=== PATIENT | female | born 1960 | race Caucasian/White ===

== ENCOUNTER 2023-12-24 12:08 | Inpatient (IN) | payer OTHER, SELFPAY ==
[2023-12-24] VITALS (29 sets, daily range): BP systolic 143–189; BP diastolic 89–96; PULSE 91–126; TEMP 37.4–37.9; O2SAT 97–98; BMI 41.4
--- NOTE | 2023-12-24 12:35 | ECG_ITS ---
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
--- NOTE | 2023-12-24 12:45 | XR_ITS ---
The [address] [address] Patient Name: ACACIA TIRADO MRN: [id number] date: 1960 Sex: F Assigned Patient Location: ER Current Patient Location: ER Accession/Order Number: [id number] Exam Date: 12/24/2023 14:00 Report Date: 12/24/2023 14:55 At the request of: BEN KEMP Procedure: XR chest 2V EXAM: XR chest 2V HISTORY: cough COMPARISON: None. TECHNIQUE: Chest X-ray, 2 views FINDINGS: Support devices: None. Lungs/pleura: No consolidation, effusion, or pneumothorax. Heart and mediastinum: Normal contours. Bones: No acute abnormality identified. XR/XR chest 2V Impression: No radiographic evidence of acute cardiopulmonary process. Electronically authenticated by: TAMY DOS SANTOS Date: 12/24/2023 14:55
[2023-12-24 13:15] LABS: Basophils Percent Auto 0.2 % (0.2-2.0); Eosinophils Absolute Auto 0.1 10^3/uL (0.0-0.7); Eosinophils Percent Auto 0.5 % (0.9-7.0); Hematocrit 39.3 % (36.0-48.0); Hemoglobin 13.9 g/dL (12.0-16.0); Immature Granulocytes Abs Auto 0.06 10^3/uL (0.00-0.03); Immature Granulocytes Pct Auto 0.5 % (0.0-0.5); Lymphocytes Absolute Auto 1.6 10^3/uL (1.2-3.8); Lymphocytes Percent Auto 13.3 % (20.5-60.0); Mean Corpuscular HGB Conc 35.4 g/dL (29.9-35.2); Mean Corpuscular Hemoglobin 29.3 pg (26.7-34.0); Mean Corpuscular Volume 82.9 fL (81.0-99.0); Mean Platelet Volume 8.6 fL (9.5-13.5); Monocytes Absolute Auto 1.2 10^3/uL (0.3-0.8); Monocytes Percent Auto 9.7 % (1.7-12.0); Neutrophils Absolute Auto 9.1 10^3/uL (1.4-6.5); Neutrophils Percent Auto 75.8 % (43.0-75.0); Platelet Count 302 10^3/uL (150-450); Red Blood Count 4.74 10^6/uL (4.20-5.40); Red Cell Distribution Width 12.6 % (11.0-15.0)
[2023-12-24 13:29] LABS: Internal Control Within Normal Limits; Strep A Antigen Screen Negative
[2023-12-24 13:29] LABS: Influenza Virus A Antigen Negative; Influenza Virus B Antigen Negative; Internal Control Within Normal Limits
[2023-12-24 13:30] LABS: Internal Control Within Normal Limits; SARS-CoV-2 Ag NEGATIVE (NEGATIVE)
[2023-12-24 15:02] LABS: Alanine Aminotransferase 24 U/L (14-59); Albumin Globulin Ratio 0.6; Albumin Level 2.9 g/dL (3.4-5.0); Alkaline Phosphatase 102 U/L (46-116); Anion Gap 18.5; Aspartate Amino Transferase 8 U/L (15-37); BUN Creatinine Ratio 14.1; Bilirubin Total 0.9 mg/dL (0.2-1.0); Calcium 8.9 mg/dL (8.5-10.1); Carbon Dioxide 24.5 mmol/L (21.0-32.0); Estimated GFR (African America >60 (>=60); Estimated GFR (Non-African Ame >60 (>=60); Globulin 4.9 g/dL; Glucose 113 mg/dL (74-106); Total Protein 7.8 g/dL (6.4-8.2)
[2023-12-24 15:05] LABS: Chloride 81 mmol/L (98-107); Sodium 121 mmol/L (136-145)
[2023-12-24] MEDS: 0.9 % SODIUM CHLORIDE 1,000 ML 500 ML IV ×2 (16:09→19:14)
[2023-12-24 17:48] LABS: Anion Gap 12.4; BUN Creatinine Ratio 13.1; Calcium 8.7 mg/dL (8.5-10.1); Carbon Dioxide 27.4 mmol/L (21.0-32.0); Chloride 86 mmol/L (98-107); Estimated GFR (African America >60 (>=60); Estimated GFR (Non-African Ame >60 (>=60); Glucose 101 mg/dL (74-106)
[2023-12-24 17:58] LABS: Potassium 2.8 mmol/L (3.5-5.1); Sodium 123 mmol/L (136-145)
--- NOTE | 2023-12-24 18:12 | ED.GENADUL1 ---
HPI HPI - General Adult General Chief complaint: Upper Respiratory Infection Stated complaint: FLU LIKE SYMPTOMS Time Seen by Provider: 12/24/23 12:40 Source: patient Mode of arrival: Wheelchair Limitations: no limitations History of Present Illness HPI narrative: The patient is coming to the ER after she had started having sore throat almost 5 days ago, the patient endorsed dizziness decreased p.o. intake and sore throat for the last 5 days, associated with a cough no shortness of breath no chest pain, and decreased p.o. intake, patient also endorsed diarrhea no abdominal pain no chest pain Related Data Home Medications ?Medication ?Instructions ?Recorded ?Confirmed HCTZ See Rx Instructions .Route .COMPLEX 12/24/23 12/24/23 levothyroxine 112 mcg capsule 112 mcg PO DAILY 12/24/23 12/24/23 lisinopril 20 mg tablet 20 mg PO DAILY 12/24/23 12/24/23 potassium chloride 10 mEq meq 12/24/23 capsule,extended release Allergies Allergy/AdvReac Type Severity Reaction Status Date / Time acetaminophen [From Percocet] Allergy Mild Rash Verified 12/24/23 12:30 morphine Allergy Mild Rash Verified 12/24/23 12:30 oxycodone [From Percocet] Allergy Mild Rash Verified 12/24/23 12:30 Penicillins Allergy Mild Rash Verified 12/24/23 12:30 Opioid HPI Opioid Management Most Recent Opioid Data: No Data to Display Exam Narrative Exam Narrative: Nurses notes and vital signs reviewed and patient is not hypoxic. General: Well-appearing and in no apparent distress. Skin: Warm, dry, no pallor noted. No rash. Head: Normocephalic, atraumatic. Neck: Supple, non-tender. Eye: Pupils are equal, round and EOMI. No scleral icterus. Ears, Nose, Mouth, and Throat: TM are clear, no nasal mucosal hypertrophy. Oral mucosa is moist, very mild erythema and the patient have a patent airway .uvula is mid-line Cardiovascular: Regular Rate and Rhythm without murmur, gallop or rub. Respiratory: No accessory muscle use or respiratory distress. Lungs are clear to auscultation, no wheezing, rales or rhonchi Chest Wall: no tenderness Back: No midline thoracic or lumbar vertebral tenderness. No CVA tenderness Musculoskeletal: normal ROM, no calf or popliteal tenderness, no lower extremity edema/swelling GI: Abdomen is soft, non-distended. Normal bowel sounds. No masses appreciated. No tenderness to palpation. No rebound, guarding, or rigidity noted. Neurological: A&O x4. No cranial nerve dysfunction observed. No truncal ataxia. Moves all extremities. Sensation intact. Psychiatric: Cooperative and interactive. Normal mood and affect. Constitutional Vital Signs, click to edit/add: Last Vital Signs Temp 100.2 F 12/24/23 12:30 Pulse 96 H 12/24/23 17:00 Resp 18 12/24/23 17:00 BP 189/96 H 12/24/23 17:00 Pulse Ox 98 12/24/23 17:00 O2 Del Method Room Air 12/24/23 17:00 Course Vital Signs Vital signs: Vital Signs Temperature 100.2 F 12/24/23 12:30 Pulse Rate 105 H 12/24/23 12:30 Respiratory Rate 241 H 12/24/23 12:30 Blood Pressure 143/92 H 12/24/23 12:30 Pulse Oximetry 97 12/24/23 12:30 Temperature 100.2 F 12/24/23 12:30 Pulse Rate 96 H 12/24/23 17:00 Respiratory Rate 18 12/24/23 17:00 Blood Pressure 189/96 H 12/24/23 17:00 Pulse Oximetry 98 12/24/23 17:00 Oxygen Delivery Method Room Air 12/24/23 17:00 Medical Decision Making [facility] Narrative Medical decision making narrative: Upon presentation the patient presenting with a possible dehydration she already endorsed diarrhea as well as decreased p.o. intake for the last at least 5 days COVID and flu are negative as well as strep but the patient presentation is highly suspicious of strep or atypical pneumonia The patient chest x-ray showed no acute pathology Sodium is low at 121 and the patient have a low potassium although she have a history of hypokalemia The patient also have a magnesium test pending IV and p.o. potassium provided The patient will be started azithromycin to cover for atypical pneumonia and the patient will be admitted for IV hydration and electrolyte management Patient case was discussed Richard [employer] and pt will be admitted under Dr. Gaitan Lab Data Labs: Lab Results 12/24/23 12/24/23 12/24/23 Range/Units 12:38 12:40 12:43 WBC 12.0 H (4.0-11.0) 10^3/uL RBC 4.74 (4.20-5.40) 10^6/uL Hgb 13.9 (12.0-16.0) g/dL Hct 39.3 (36.0-48.0) % MCV 82.9 (81.0-99.0) fL MCH 29.3 (26.7-34.0) pg MCHC 35.4 H (29.9-35.2) g/dL RDW 12.6 (11.0-15.0) % Plt Count 302 (150-450) 10^3/uL MPV 8.6 L (9.5-13.5) fL Neut % (Auto) 75.8 H (43.0-75.0) % Lymph % (Auto) 13.3 L (20.5-60.0) % [place] % (Auto) 9.7 (1.7-12.0) % Eos % (Auto) 0.5 L (0.9-7.0) % Baso % (Auto) 0.2 (0.2-2.0) % Neut # (Auto) 9.1 H (1.4-6.5) 10^3/uL Lymph # (Auto) 1.6 (1.2-3.8) 10^3/uL [place] # (Auto) 1.2 H (0.3-0.8) 10^3/uL Eos # (Auto) 0.1 (0.0-0.7) 10^3/uL Baso # (Auto) 0.0 (0.0-0.1) 10^3/uL Abs Immat Gran (auto) 0.06 H (0.00-0.03) 10^3/uL Imm/Tot Granulo (auto) 0.5 (0.0-0.5) % Sodium 121 L* (136-145) mmol/L Potassium 3.0 L (3.5-5.1) mmol/L Chloride 81 L* (98-107) mmol/L Carbon Dioxide 24.5 (21.0-32.0) mmol/L Anion Gap 18.5 BUN 9.0 (7.0-18.0) mg/dL Creatinine 0.64 (0.55-1.02) mg/dL Est GFR ( Amer) >60 (>=60) Est GFR (Non-Af Amer) >60 (>=60) BUN/Creatinine Ratio 14.1 Glucose 113 H (74-106) mg/dL Calcium 8.9 (8.5-10.1) mg/dL Total Bilirubin 0.9 (0.2-1.0) mg/dL AST 8 L (15-37) U/L ALT 24 (14-59) U/L Alkaline Phosphatase 102 (46-116) U/L Total Protein 7.8 (6.4-8.2) g/dL Albumin 2.9 L (3.4-5.0) g/dL Globulin 4.9 g/dL Albumin/Globulin Ratio 0.6 Influenza Type A Ag Negative Influenza Type B Ag Negative SARS-CoV-2 Ag (CV2AG) Negative (NEGATIVE) Streptococcus Screen Negative 12/24/23 Range/Units 17:06 WBC (4.0-11.0) 10^3/uL RBC (4.20-5.40) 10^6/uL Hgb (12.0-16.0) g/dL Hct (36.0-48.0) % MCV (81.0-99.0) fL MCH (26.7-34.0) pg MCHC (29.9-35.2) g/dL RDW (11.0-15.0) % Plt Count (150-450) 10^3/uL MPV (9.5-13.5) fL Neut % (Auto) (43.0-75.0) % Lymph % (Auto) (20.5-60.0) % [place] % (Auto) (1.7-12.0) % Eos % (Auto) (0.9-7.0) % Baso % (Auto) (0.2-2.0) % Neut # (Auto) (1.4-6.5) 10^3/uL Lymph # (Auto) (1.2-3.8) 10^3/uL [place] # (Auto) (0.3-0.8) 10^3/uL Eos # (Auto) (0.0-0.7) 10^3/uL Baso # (Auto) (0.0-0.1) 10^3/uL Abs Immat Gran (auto) (0.00-0.03) 10^3/uL Imm/Tot Granulo (auto) (0.0-0.5) % Sodium 123 L* (136-145) mmol/L Potassium 2.8 L* (3.5-5.1) mmol/L Chloride 86 L (98-107) mmol/L Carbon Dioxide 27.4 (21.0-32.0) mmol/L Anion Gap 12.4 BUN 8.0 (7.0-18.0) mg/dL Creatinine 0.61 (0.55-1.02) mg/dL Est GFR ( Amer) >60 (>=60) Est GFR (Non-Af Amer) >60 (>=60) BUN/Creatinine Ratio 13.1 Glucose 101 (74-106) mg/dL Calcium 8.7 (8.5-10.1) mg/dL Total Bilirubin (0.2-1.0) mg/dL AST (15-37) U/L ALT (14-59) U/L Alkaline Phosphatase (46-116) U/L Total Protein (6.4-8.2) g/dL Albumin (3.4-5.0) g/dL Globulin g/dL Albumin/Globulin Ratio Influenza Type A Ag Influenza Type B Ag SARS-CoV-2 Ag (CV2AG) (NEGATIVE) Streptococcus Screen Discharge Plan Discharge Chief Complaint: Upper Respiratory Infection Clinical Impression: Acute hyponatremia, Acute hypokalemia Acute tonsillitis Qualifiers: Pharyngitis/tonsillitis etiology: streptococcus Streptococcal tonsillitis recurrence: non-recurrent Qualified Code(s): J03.00 - Acute streptococcal tonsillitis, unspecified Patient Disposition: Admitted As Inpatient Time of Disposition Decision: 18:26
[2023-12-24 19:15] LABS: Magnesium 1.8 mg/dL (1.8-2.4)
[2023-12-24] MEDS: POTASSIUM CITRATE 10 MEQ ER TABLET 20 MEQ PO (19:20)
[2023-12-24 19:25] LABS: PROCALCITONIN 0.05 ng/mL (0.00-0.50)
[2023-12-24] MEDS: ENOXAPARIN SODIUM 40 MG/0.4 ML SYRINGE SUBQ (20:51)
[2023-12-24] MEDS: SODIUM CHLORIDE 0.45 % 1,000 ML 75 ML IV (20:51)
[2023-12-24] MEDS: AZITHROMYCIN 500 MG in 0.9 % SODIUM CHLORIDE 250 ML 250 MG IV (20:51)
[2023-12-24 21:21] LABS: Sodium Urine Random 10 mmol/L (30-90)
[2023-12-24 21:40] LABS: Anion Gap 12.1; BUN Creatinine Ratio 12.7; Calcium 8.4 mg/dL (8.5-10.1); Carbon Dioxide 27.9 mmol/L (21.0-32.0); Chloride 89 mmol/L (98-107); Estimated GFR (African America >60 (>=60); Estimated GFR (Non-African Ame >60 (>=60); Glucose 106 mg/dL (74-106); Sodium 126 mmol/L (136-145)
[2023-12-24] MEDS: POTASSIUM CHLORIDE IN WATER 10 MEQ/100 ML PIGGYBACK 100 MEQ IV (22:20)
[2023-12-25] VITALS (54 sets, daily range): BP systolic 120–177; BP diastolic 69–92; PULSE 85–120; TEMP 36.6–36.9; O2SAT 92–97
[2023-12-25] MEDS: POTASSIUM CHLORIDE IN WATER 10 MEQ/100 ML PIGGYBACK 100 MEQ IV
[2023-12-25 04:40] LABS: Hematocrit 35.5 % (36.0-48.0); Hemoglobin 12.5 g/dL (12.0-16.0); Mean Corpuscular HGB Conc 35.2 g/dL (29.9-35.2); Mean Corpuscular Hemoglobin 29.7 pg (26.7-34.0); Mean Corpuscular Volume 84.3 fL (81.0-99.0); Mean Platelet Volume 8.6 fL (9.5-13.5); Platelet Count 268 10^3/uL (150-450); Red Blood Count 4.21 10^6/uL (4.20-5.40); Red Cell Distribution Width 12.9 % (11.0-15.0); White Blood Count 11.9 10^3/uL (4.0-11.0)
[2023-12-25 05:05] LABS: Alanine Aminotransferase 20 U/L (14-59); Albumin Globulin Ratio 0.5; Albumin Level 2.4 g/dL (3.4-5.0); Alkaline Phosphatase 91 U/L (46-116); Anion Gap 13.3; Aspartate Amino Transferase 13 U/L (15-37); BUN Creatinine Ratio 12.1; Bilirubin Total 0.7 mg/dL (0.2-1.0); Calcium 8.2 mg/dL (8.5-10.1); Carbon Dioxide 25.8 mmol/L (21.0-32.0); Chloride 88 mmol/L (98-107); Estimated GFR (African America >60 (>=60); Estimated GFR (Non-African Ame >60 (>=60); Globulin 4.4 g/dL; Glucose 115 mg/dL (74-106); Potassium 3.1 mmol/L (3.5-5.1); Total Protein 6.8 g/dL (6.4-8.2)
[2023-12-25 05:08] LABS: Sodium 124 mmol/L (136-145)
[2023-12-25 05:26] LABS: Segmented Neut Absolute Manual 7.02 10^3/uL (1.4-6.5)
[2023-12-25 05:27] LABS: Atypical Lymphocytes Abs Man 0.47; Band Neutrophils Absolute 1.2 10^3/uL (0.0-0.3); Eosinophils Absolute Manual 0.11 10^3/uL (0.00-0.70); Lymphocytes Absolute Manual 1.66 10^3/uL (1.20-3.80); Monocytes Absolute Manual 1.42 10^3/uL (0.30-0.80)
[2023-12-25] MEDS: LEVOTHYROXINE SODIUM 112 MCG TABLET PO (05:52)
[2023-12-25] MEDS: DOXYCYCLINE HYCLATE 100 MG in 0.9 % SODIUM CHLORIDE 100 ML IV (05:52)
--- NOTE | 2023-12-25 08:03 | P.HP_ITS ---
HPI H&P: HPI History of Present Illness Chief complaint: HYPONATREMIA/TONSILITIS/HYPOKALEMIA Narrative: Patient is a pleasant 63 y.o white female with past history of HTN, hypothyroidism, GERD, and seasonal allergic asthma. She reports a 6 day history of sore throat, nasal drainage, sinus pressure, cough, and some shortness of breath. She also notes fatigue, sleeping more than usual and diarrhea. Her has also been sick. She presented to the ER last night as she thought she had influenza or COVID. Testing for both was negative along with viral panel this morning. This morning on admission exam she reports productive cough, sinus pressure has improved, sore throat has improved. No fever but facial flushing. Slightly short of breath with coughing. No chest pain. slight sore throat. Decreased appetite and drinking. Diarrhea present but has slowed down. She has history of seasonal allergies with asthma component that she uses albuterol in spring and fall for. She denies using lately as she does not have inhaler now. No recent antibiotic use. No recent hospitalizations. BP has been controlled. No other issues or complaints today. In the ER, Chest X-ray was negative for acute disease, electrolytes were abnormal, sodium was 121 and potassium was 2.8. covid, flu and rapid strep negative. Patient was admitted to the hospitalist service for her severe electrolyte abnormalities. Opioid HPI Opioid Management Most Recent Opioid Data: Last Pain Assessment 12/25/23 10:48 Last ORT Total Score 1 12/24/23 20:27 Last ORT Risk Category Low Risk 12/24/23 20:27 Review of Systems ROS Narrative ROS: a complete review of systems were reviewed with patient and are positive as below or listed in History of Chief Complaint. General: no fever, chills, night sweats Head: sinus headache, no trauma, visual changes, nausea or vomiting Skin: no reported rashes, itching or sores Eyes: no blurriness of vision Ears: no reported hearing loss, vertigo, earache, or tinnitus Throat: sore throat,no hoarseness, swelling of neck, or tongue pain Heart: no chest pain Lungs: shortness of breath and cough GI: diarrhea no vomiting/nausea Urinary: no urinary urgency, frequency or pain Neuro: no numbness or tingling HEM: no bleeding issues or bruising ENDO: thyroid problems Psych: no anxiety or depression PFSH PFSH Medical History (Updated 12/25/23 @ 10:54 by Sanjuanita Gaitan DO) Hypothyroidism (acquired) ?E03.9 - Hypothyroidism, unspecified (ICD-10) Hypokalemia ?E87.6 - Hypokalemia (ICD-10) Depression ?F32.A - Depression, unspecified (ICD-10) Chronic GERD ?K21.9 - Gastro-esophageal reflux disease without esophagitis (ICD-10) Hypertension ?I10 - Essential (primary) hypertension (ICD-10) Allergies ?T78.40XA - Allergy, unspecified, initial encounter (ICD-10) Surgical History History of cholecystectomy ?Z90.49 - Acquired absence of other specified parts of digestive tract (ICD- 10) Family History Mother Family history of COPD (chronic obstructive pulmonary disease) Family history of stroke Sister Family history of COPD (chronic obstructive pulmonary disease) Family history of diabetes mellitus Daughter Family history of cancer Father Family history of myocardial infarction Other Family history of hypertension Social History Within the past year, how often did you have a drink containing alcohol: never Score interpretation: A score less than 3 is consistent with normal alcohol consumption. Smoking status: Never smoker Non-prescribed substance use: denies use Previous occupational history: retired Highest level of school completed/degree received: Associate degree: occupational, technical, vocational program Are you now , , , , never or living with a partner: In a typical week, how many times do you talk on the telephone with family, friends, or neighbors: 3 or more times per week How often do you get together with friends or relatives: 3 or more times per week Little interest or pleasure in doing things: not at all Feeling down, depressed, or hopeless: not at all Feel stressed/tense/nervous/anxious/difficulty sleeping: not at all Meds Home Medications and Allergies Home Medications ?Medication ?Instructions ?Recorded ?Confirmed ?Type HCTZ 25 mg PO DAILY 12/24/23 12/24/23 History albuterol sulfate 90 mcg/actuation 1 inh inhalation Q4H 12/24/23 12/24/23 History aerosol inhaler levothyroxine 112 mcg capsule 112 mcg PO DAILY 12/24/23 12/24/23 History lisinopril 20 mg tablet 20 mg PO DAILY 12/24/23 12/24/23 History omeprazole 20 mg capsule,delayed 20 mg PO DAILY 12/24/23 12/24/23 History release potassium chloride 10 mEq 10 meq PO DAILY 12/24/23 12/24/23 History capsule,extended release Allergies Allergy/AdvReac Type Severity Reaction Status Date / Time acetaminophen [From Percocet] Allergy Mild Rash Verified 12/24/23 12:30 morphine Allergy Mild Rash Verified 12/24/23 12:30 oxycodone [From Percocet] Allergy Mild Rash Verified 12/24/23 12:30 Penicillins Allergy Mild Rash Verified 12/24/23 12:30 fluoxetine [From Prozac] AdvReac Severe Anxiety Verified 12/24/23 20:03 Exam Narrative Exam Narrative: General: Patient is alert, and oriented to person, place and time with normal affect, proper hygiene Skin: no visible rashes, or ulcers, facial flushing Head: atraumatic, acephalic Eyes: PERRLA, no nystagmus present, conjunctiva clear, no scleral icterus Ears: normal Tympanic Membrane, normal gross auditory acuity Nose: symmetric, no discharge, maxillary and frontal sinus tenderness Mouth/Throat: erythema, but no exudate, or tonsillar enlargement, normal dentition Neck: no masses palpated Heart: Normal rate and rhythm, no murmurs/rubs/gallops Lungs: no audible wheezes, crackles and normal breath sounds all lung piper Abdomen: Normal audible bowel sounds, no distension, No palpable masses, no organomegaly, no rebound/guarding/ or rigidity Musculoskeletal: no swelling bilateral lower extremities Neuro: CN II-X grossly intact Constitutional Vital Signs, click to edit/add: Last Vital Signs Temp 98 F 12/25/23 06:45 Pulse 94 H 12/25/23 06:45 Resp 20 12/25/23 06:45 BP 164/90 H 12/25/23 06:45 Pulse Ox 96 12/25/23 06:45 O2 Del Method Room Air 12/25/23 06:45 Results Labs Labs: Short CBC 12/24/23 12/25/23 Range/Units 12:43 04:04 WBC 12.0 H 11.9 H (4.0-11.0) 10^3/uL Hgb 13.9 12.5 (12.0-16.0) g/dL Hct 39.3 35.5 L (36.0-48.0) % Plt Count 302 268 (150-450) 10^3/uL BMP 12/24/23 12/24/23 12/24/23 12:43 17:06 21:16 Sodium 121 L* 123 L* 126 L Potassium 3.0 L 2.8 L* 3.0 L Chloride 81 L* 86 L 89 L Carbon Dioxide 24.5 27.4 27.9 BUN 9.0 8.0 7.0 Creatinine 0.64 0.61 0.55 Glucose 113 H 101 106 Calcium 8.9 8.7 8.4 L 12/25/23 04:04 Sodium 124 L* Potassium 3.1 L Chloride 88 L Carbon Dioxide 25.8 BUN 7.0 Creatinine 0.58 Glucose 115 H Calcium 8.2 L Liver Function 12/24/23 12/25/23 Range/Units 12:43 04:04 Total Bilirubin 0.9 0.7 (0.2-1.0) mg/dL AST 8 L 13 L (15-37) U/L ALT 24 20 (14-59) U/L Alkaline Phosphatase 102 91 (46-116) U/L Albumin 2.9 L 2.4 L (3.4-5.0) g/dL Assessment and Plan Assessment and Plan (1) Acute hypokalemia: Assessment and Plan: was 2.8, was replaced both orally and IV, continue with Klor-con 20meq TID, hold HCTZ; most likely from diarrhea, stool culture pending. (2) Acute hyponatremia: Assessment and Plan: FENA 0.3% pre-renal, dehydration/hypovolemia; continue with hypertonic saline, monitor BMP q6 hours, fluid restriction to 1200 Liters. Patient on Tele (3) Acute bronchitis: Assessment and Plan: continue IV azithromycin, added prednisone 20mg BID, albuterol inhaler and duonebs PRN. Also addition of Mucinex DM today Qualifiers: Bronchitis organism: unspecified organism Qualified Code(s): J20.9 - Acute bronchitis, unspecified (4) Chronic GERD: Assessment and Plan: continue omeprazole (5) Hypertension: Assessment and Plan: continue lisinopril. Qualifiers: Hypertension type: primary hypertension Qualified Code(s): I10 - Essential (primary) hypertension (6) Hypothyroidism (acquired): Assessment and Plan: continue levothyroxine, recheck TFT's Plan patient is a full code Lovenox for dvt prophylaxis Patient is inpatient status and is expected to cross 2 midnights for medically needed hospital care for her severe electrolyte abnormalities and concern for cardiac/cognitive decline.
[2023-12-25] MEDS: LISINOPRIL 20 MG TABLET PO (08:08)
[2023-12-25] MEDS: POTASSIUM CITRATE 10 MEQ ER TABLET 20 MEQ PO (08:09)
[2023-12-25 08:14] LABS: Adenovirus NOT DETECTED (NOT DETECTE); Bordetella parapertussis NOT DETECTED (NOT DETECTE); Coronavirus 229E NOT DETECTED (NOT DETECTE); Coronavirus HKU1 NOT DETECTED (NOT DETECTE); Coronavirus NL63 NOT DETECTED (NOT DETECTE); Coronavirus OC43 NOT DETECTED (NOT DETECTE); Human Metapneumovirus NOT DETECTED (NOT DETECTE); Human Rhinovirus/Enterovirus NOT DETECTED (NOT DETECTE); Influenza A NOT DETECTED (NOT DETECTE); Influenza B NOT DETECTED (NOT DETECTE); Mycoplasma pneumoniae NOT DETECTED (NOT DETECTE); Parainfluenza Virus 1 NOT DETECTED (NOT DETECTE); Parainfluenza Virus 2 NOT DETECTED (NOT DETECTE); Parainfluenza Virus 3 NOT DETECTED (NOT DETECTE); Parainfluenza Virus 4 NOT DETECTED (NOT DETECTE); Respiratory Syncytial Virus NOT DETECTED (NOT DETECTE); SARS-CoV-2 NOT DETECTED (NOT DETECTE)
[2023-12-25] MEDS: PREDNISONE 20 MG TABLET PO ×2 (09:56→21:28)
[2023-12-25] MEDS: GUAIFENESIN/DEXTROMETHORPHAN TAB.ER.12H 1 TAB PO ×2 (09:56→21:28)
--- NOTE | 2023-12-25 11:19 | PC.NURSE ---
pt stool had 2 undigested pills, Dr Gaitan notified.
[2023-12-25] MEDS: POTASSIUM CHLORIDE 10 MEQ ER TABLET 20 MEQ PO ×2 (12:21→16:44)
[2023-12-25 13:07] LABS: Anion Gap 11.5; BUN Creatinine Ratio 11.8; Calcium 8.3 mg/dL (8.5-10.1); Carbon Dioxide 27.7 mmol/L (21.0-32.0); Chloride 88 mmol/L (98-107); Estimated GFR (African America >60 (>=60); Estimated GFR (Non-African Ame >60 (>=60); Glucose 136 mg/dL (74-106); Potassium 3.2 mmol/L (3.5-5.1)
[2023-12-25 13:13] LABS: Sodium 124 mmol/L (136-145)
[2023-12-25 14:21] LABS: C. Difficile PCR NEGATIVE (NEGATIVE)
[2023-12-25] MEDS: SODIUM CHLORIDE 0.45 % 1,000 ML 50 ML IV (16:44)
[2023-12-25] MEDS: AZITHROMYCIN 500 MG in 0.9 % SODIUM CHLORIDE 250 ML 250 MG IV (17:03)
[2023-12-25 20:47] LABS: Anion Gap 11.9; BUN Creatinine Ratio 12.5; Calcium 8.9 mg/dL (8.5-10.1); Carbon Dioxide 26.6 mmol/L (21.0-32.0); Chloride 97 mmol/L (98-107); Estimated GFR (African America >60 (>=60); Estimated GFR (Non-African Ame >60 (>=60); Glucose 103 mg/dL (74-106); Potassium 3.5 mmol/L (3.5-5.1); Sodium 132 mmol/L (136-145)
[2023-12-25] MEDS: ENOXAPARIN SODIUM 40 MG/0.4 ML SYRINGE SUBQ (21:28)
[2023-12-26 02:00] VITALS: PULSE 80
[2023-12-26 04:00] VITALS: PULSE 96
[2023-12-26] MEDS: LEVOTHYROXINE SODIUM 112 MCG TABLET PO (05:07)
[2023-12-26 05:08] VITALS: BP 143/77; PULSE 86; TEMP 36.6; O2SAT 94
[2023-12-26 05:42] LABS: Basophils Percent Auto 0.3 % (0.2-2.0); Eosinophils Percent Auto 0.1 % (0.9-7.0); Hematocrit 37.1 % (36.0-48.0); Hemoglobin 12.4 g/dL (12.0-16.0); Immature Granulocytes Abs Auto 0.09 10^3/uL (0.00-0.03); Immature Granulocytes Pct Auto 0.9 % (0.0-0.5); Lymphocytes Absolute Auto 1.7 10^3/uL (1.2-3.8); Lymphocytes Percent Auto 16.7 % (20.5-60.0); Mean Corpuscular HGB Conc 33.4 g/dL (29.9-35.2); Mean Corpuscular Hemoglobin 28.9 pg (26.7-34.0); Mean Corpuscular Volume 86.5 fL (81.0-99.0); Mean Platelet Volume 8.7 fL (9.5-13.5); Monocytes Absolute Auto 0.6 10^3/uL (0.3-0.8); Monocytes Percent Auto 6.2 % (1.7-12.0); Neutrophils Absolute Auto 7.7 10^3/uL (1.4-6.5); Neutrophils Percent Auto 75.8 % (43.0-75.0); Platelet Count 295 10^3/uL (150-450); Red Blood Count 4.29 10^6/uL (4.20-5.40); Red Cell Distribution Width 13.2 % (11.0-15.0); White Blood Count 10.2 10^3/uL (4.0-11.0)
[2023-12-26 05:53] LABS: Alanine Aminotransferase 20 U/L (14-59); Albumin Globulin Ratio 0.5; Albumin Level 2.5 g/dL (3.4-5.0); Alkaline Phosphatase 93 U/L (46-116); Anion Gap 12.8; Aspartate Amino Transferase 13 U/L (15-37); BUN Creatinine Ratio 15.6; Bilirubin Total 0.4 mg/dL (0.2-1.0); Carbon Dioxide 26.8 mmol/L (21.0-32.0); Chloride 98 mmol/L (98-107); Estimated GFR (African America >60 (>=60); Estimated GFR (Non-African Ame >60 (>=60); Globulin 4.6 g/dL; Glucose 126 mg/dL (74-106); Potassium 3.6 mmol/L (3.5-5.1); Sodium 134 mmol/L (136-145); Total Protein 7.1 g/dL (6.4-8.2)
[2023-12-26 06:04] LABS: TSH W/ REFLEX FT4 0.363 uIU/mL (0.358-3.740)
[2023-12-26 08:00] VITALS: PULSE 100
--- NOTE | 2023-12-26 08:41 | PM.DS1 ---
DS: Providers Provider Date of admission: 12/24/23 18:48 Primary care physician: Non-Staff PhysicianMD Admitting clinician: Sanjuanita Gaitan Attending physician on discharge: Sanjuanita Gaitan DS: Diagnosis Discharge Diagnosis (1) Acute hypokalemia: (2) Acute hyponatremia: (3) Acute bronchitis: Qualifiers: Bronchitis organism: unspecified organism Qualified Code(s): J20.9 - Acute bronchitis, unspecified (4) Chronic GERD: (5) Hypertension: Qualifiers: Hypertension type: primary hypertension Qualified Code(s): I10 - Essential (primary) hypertension (6) Hypothyroidism (acquired): DS: Summary Hospital Course Hospital Course: Patient is a pleasant 63 y.o white female with past history of HTN, hypothyroidism, GERD, and seasonal allergic asthma. She reports a 6 day history of sore throat, nasal drainage, sinus pressure, cough, and some shortness of breath. She also notes fatigue, sleeping more than usual and diarrhea. Her has also been sick. She presented to the ER last night as she thought she had influenza or COVID. Testing for both was negative along with viral panel this morning. In the ER, Chest X-ray was negative for acute disease, electrolytes were abnormal, sodium was 121 and potassium was 2.8. covid, flu and rapid strep negative. Patient was admitted to the hospitalist service for her severe electrolyte abnormalities. Patient was continued on hypertonic saline and bmp q6 hours. Sodium at the time of discharge was 134. She was also provided IV and oral potassium and at the time of discharge level was 3.6. Her overall symptoms improved on IV azithromycin, mucinex/DM, and oral prednisone. At the time of discharge, she still has a slight cough but overall feels much better than admission. Patient's electrolyte abnormalities recovered faster than anticipated and patient will be discharged home today in stable condition. I discussed calling her PCP tomorrow to get appt for 3-5 days to recheck BMP. I have sent prescriptions for 4 days of azithromycin 250mg daily, prednisone 20mg BID x 5 days, Mucinex DM BID x 7 days, an albuterol inhaler and Klor-con 20mEQ BID. She should return to the hospital with any worsening signs or symptoms. Vitals and labs stable at discharge. Status at Discharge Functional status at discharge: independent ambulation Overall status at discharge: patient is progressing back to baseline Time Spent with Patient Time attestation: Total time spent providing and/or coordinating discharge services: Time spent: greater than 30 minutes Exam Narrative Exam Narrative: General: Patient is alert, and oriented to person, place and time with normal affect, proper hygiene Skin: no visible rashes, or ulcers, facial flushing Head: atraumatic, acephalic Eyes: PERRLA, no nystagmus present, conjunctiva clear, no scleral icterus Heart: Normal rate and rhythm, no murmurs/rubs/gallops Lungs: no audible wheezes, crackles and normal breath sounds all lung piper Abdomen: Normal audible bowel sounds, no distension, No palpable masses, no organomegaly, no rebound/guarding/ or rigidity Musculoskeletal: no swelling bilateral lower extremities Neuro: CN II-X grossly intact Constitutional Vital Signs, click to edit/add: Last Vital Signs Temp 97.9 F 12/26/23 05:08 Pulse 100 H 12/26/23 08:00 Resp 18 12/26/23 08:00 BP 143/77 H 12/26/23 05:08 Pulse Ox 94 L 12/26/23 05:08 O2 Del Method Room Air 12/26/23 05:08 DS: Data Data Completed and Pending Labs on day of discharge: Labs from last 24 hours 12/26/23 12/25/23 12/25/23 04:37 20:22 12:33 WBC 10.2 RBC 4.29 Hgb 12.4 Hct 37.1 MCV 86.5 MCH 28.9 MCHC 33.4 RDW 13.2 Plt Count 295 MPV 8.7 L Neut % (Auto) 75.8 H Lymph % (Auto) 16.7 L Reynolds % (Auto) 6.2 Eos % (Auto) 0.1 L Baso % (Auto) 0.3 Neut # (Auto) 7.7 H Lymph # (Auto) 1.7 Reynolds # (Auto) 0.6 Eos # (Auto) 0.0 Baso # (Auto) 0.0 Abs Immat Gran (auto) 0.09 H Imm/Tot Granulo (auto) 0.9 H Sodium 134 L 132 L 124 L* Potassium 3.6 3.5 3.2 L Chloride 98 97 L 88 L Carbon Dioxide 26.8 26.6 27.7 Anion Gap 12.8 11.9 11.5 BUN 10.0 8.0 6.0 L Creatinine 0.64 0.64 0.51 L Est GFR ( Amer) >60 >60 >60 Est GFR (Non-Af Amer) >60 >60 >60 BUN/Creatinine Ratio 15.6 12.5 11.8 Glucose 126 H 103 136 H Calcium 9.0 8.9 8.3 L Total Bilirubin 0.4 AST 13 L ALT 20 Alkaline Phosphatase 93 Total Protein 7.1 Albumin 2.5 L Globulin 4.6 Albumin/Globulin Ratio 0.5 TSH & Free T4 Interp 0.363 Adenovirus (PCR) B. pertussis DNA (PCR) B.parapertussis DNA PCR C. pneumoniae DNA (PCR) Coronavirus Type OC43 Coronavirus Type HKU1 Coronavirus Type 229E Coronavirus Type NL63 Human Metapneumovir PCR Influenza Type A (PCR) Influenza Type B (PCR) M. pneumoniae (PCR) Parainfluenza PCR Parainfluenza 2 (PCR) Parainfluenza 3 (PCR) Parainfluenza 4 (PCR) RSV (RT-PCR) Entero/Rhino (PCR) SARS-CoV-2 (PCR) C. difficile Toxin PCR 12/25/23 12/24/23 01:15 12:38 WBC RBC Hgb Hct MCV MCH MCHC RDW Plt Count MPV Neut % (Auto) Lymph % (Auto) Reynolds % (Auto) Eos % (Auto) Baso % (Auto) Neut # (Auto) Lymph # (Auto) Reynolds # (Auto) Eos # (Auto) Baso # (Auto) Abs Immat Gran (auto) Imm/Tot Granulo (auto) Sodium Potassium Chloride Carbon Dioxide Anion Gap BUN Creatinine Est GFR ( Amer) Est GFR (Non-Af Amer) BUN/Creatinine Ratio Glucose Calcium Total Bilirubin AST ALT Alkaline Phosphatase Total Protein Albumin Globulin Albumin/Globulin Ratio TSH & Free T4 Interp Adenovirus (PCR) Not detected B. pertussis DNA (PCR) Not detected B.parapertussis DNA PCR Not detected C. pneumoniae DNA (PCR) Not detected Coronavirus Type OC43 Not detected Coronavirus Type HKU1 Not detected Coronavirus Type 229E Not detected Coronavirus Type NL63 Not detected Human Metapneumovir PCR Not detected Influenza Type A (PCR) Not detected Influenza Type B (PCR) Not detected M. pneumoniae (PCR) Not detected Parainfluenza PCR Not detected Parainfluenza 2 (PCR) Not detected Parainfluenza 3 (PCR) Not detected Parainfluenza 4 (PCR) Not detected RSV (RT-PCR) Not detected Entero/Rhino (PCR) Not detected SARS-CoV-2 (PCR) Not detected C. difficile Toxin PCR Negative Discharge Plan Discharge Disposition: Home, Self-Care Condition: Fair Discharge Medications: New prednisone 20 mg Tablet 20 mg PO BID 5 Days Qty: 10 0RF Mucus DM 30-600 mg Tablet Extended Release 12 Hr 1 tab PO Q12H 7 Days Qty: 14 0RF potassium chloride 10 mEq Tablet,Er Particles/Crystals 20 meq PO BID 7 Days Qty: 28 0RF azithromycin 250 mg tablet 250 mg PO DAILY 4 Days Qty: 4 0RF Continued levothyroxine 112 mcg capsule 112 mcg PO DAILY lisinopril 20 mg tablet 20 mg PO DAILY omeprazole 20 mg capsule,delayed release(DR/EC) 20 mg PO DAILY Changed albuterol sulfate 90 mcg/actuation HFA aerosol inhaler 1 inh inhalation Q4H PRN (Reason: Shortness Of Breath Or Wheezing) 30 Days Qty: 1 0RF Held HCTZ 25 mg PO DAILY Hold Instructions: Resume on 12/30/23. Rx Instructions: 25mg Discontinued potassium chloride 10 mEq capsule, extended release 10 meq PO DAILY Activity: increase activity as tolerated Diet: advance to your usual diet Print Language: Northern Irish Forms: Portal Instructions Follow Up Appointments: please call tomorrow to make follow up appointment with PCP for recheck BMP (specifically sodium and potassium) Discharge location: Home
[2023-12-26 09:00] VITALS: BP 142/79; PULSE 87; TEMP 36.8; O2SAT 96
[2023-12-26] MEDS: LISINOPRIL 20 MG TABLET PO (09:25)
[2023-12-26] MEDS: POTASSIUM CHLORIDE 10 MEQ ER TABLET 20 MEQ PO (09:25)
[2023-12-26] MEDS: PREDNISONE 20 MG TABLET PO (09:25)
[2023-12-26] MEDS: GUAIFENESIN/DEXTROMETHORPHAN TAB.ER.12H 1 TAB PO (09:25)
[2023-12-26 10:00] VITALS: PULSE 86
--- NOTE | 2023-12-27 15:44 | CM.DCFOLLOWU ---
1st attempt 12/27/23, no answer
[2023-12-28 12:12] LABS: Osmolality, Urine 110 mOsmol/kg (.)
--- NOTE | 2023-12-28 14:08 | CM.DCFOLLOWU ---
2nd attempt, no answer 12/28/23
--- NOTE | 2023-12-29 11:51 | CM.DCFOLLOWU ---
3rd attempt 12/29/23, no answer 3 attempts made, no answer each time
== END 2023-12-26 11:55 | disposition home or self-care (01) | DRG 641 ==
LOC: ER 18:26 → ICU 19:52 → MS 12-25 11:11
PROVIDERS: Nurse Practitioner Acute Care; Admitting Provider Family Medicine; Emergency Provider Emergency Medicine; Visit Provider Family Medicine
DX: E87.6 Hypokalemia (principal); E87.1 Hypo-osmolality and hyponatremia; J20.9 Acute bronchitis, unspecified; K21.9 Gastro-esophageal reflux disease without esophagitis; I10 Essential (primary) hypertension; E03.9 Hypothyroidism, unspecified; F32.A Depression, unspecified; J45.909 Unspecified asthma, uncomplicated; Z79.899 Other long term (current) drug therapy; Z79.890 Hormone replacement therapy; Z20.822 Contact with and (suspected) exposure to COVID-19; Z90.49 Acquired absence of other specified parts of digestive tract
CPT/HCPCS: 0202U; 36415; 71046; 80048; 80053; 82570; 83735; 83935; 84145; 84300; 84443; 85007; 85025; 85027; 87040; 87045; 87046; 87070; 87427; 87493; 87804; 87811; 87880; 93005; 96361; 96365; 96366; 96367; 96372; 99285; J0456

== ENCOUNTER 2024-05-09 10:41 | Outpatient (OUT) | payer OTHER, SELFPAY ==
--- NOTE | 2024-05-09 10:43 | US_ITS ---
The [address] [address] Patient Name: ACACIA TIRADO MRN: [id number] date: 1960 Sex: F Assigned Patient Location: US Current Patient Location: Accession/Order Number: [id number] Exam Date: 05/09/2024 10:50 Report Date: 05/10/2024 04:55 At the request of: NICK KRAFT Procedure: US soft tissue head and neck EXAMINATION: US soft tissue head and neck HISTORY: Neck Mass R22.1 ; intermittent right neck and face swelling, tender to touch COMPARISON: No relevant comparison available. FINDINGS: Within lateral upper right neck/submandibular region corresponding to patient's palpable lump is a 1.9 cm rounded complex cysts versus hypoechoic relatively avascular mass. Adjacent to this is an enlarged 1.8 x 1.1 x 1.1 cm noninflamed appearing lymph node. Slightly prominent 1.0 x 0.6 0.4 cm noninflamed appearing lymph node within versus adjacent the right parotid gland. US/US soft tissue head and neck IMPRESSION: 1. Nonspecific 1.9 cm hypoechoic mass within upper lateral right neck corresponding to patient's Shaye lump. Ultrasound-guided tissue sampling is recommended. Electronically authenticated by: LARRY BRANDON Date: 05/10/2024 04:55
--- OUTSIDE RECORDS SUMMARY | 2024-05-09 10:46 | XMS_ITS | CCD ---
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 Role Phone JOHNNG, DR NICK Ramírez Admitting Unavailable FURLONG, DR NICK Ramírez Primary Care Unavailable FURLONG, DR NICK Ramírez Consulting Unavailable FURLONG, DR NICK Ramírez Attending Unavailable FURLONG, DR NICK Ramírez Admitting Unavailable FURLONG, DR NICK Ramírez Primary Care Unavailable FURLONG, DR NICK Ramírez Consulting Unavailable FURLONG, DR NICK Ramírez Attending Unavailable FURLONG, NICK Ramírez Referring Unavailable FURLONG, NICK Ramírez Primary Care Unavailable Allergies Allergy Classification Reported Allergen(s) Allergy Type Date of Onset Reaction(s) Facility Opioid Agonists (1 source) Morphine; Translations: [MORPHINE] Drug Allergy 08-23-2022 [facility] Penicillins (antibiotic) (1 source) Penicillins; Translations: [PENICILLINS] Drug Allergy 08-23-2022 [facility] Serotonin Reuptake Inhibitors (SSRIs) (1 source) FLUoxetine; Translations: [FLUOXETINE] Drug Allergy 08-23-2022 [facility] (1 source) Morphine Drug Allergy 02-24-2016 [facility] Rep[facility] (1 source) Penicillins Drug allergy (disorder) 02-24-2016 [facility] Problems Active Problems Problem Classification Problem Date Documented Da te Episodic/Chronic Essential hypertension (1 source) Essential (primary) hypertension; Translations: [Essential (primary) hypertension] Onset: 12-29-2023 Chronic Fluid and electrolyte disorders (2 sources) Hypo-osmolality and hyponatremia; Translations: [Hypokalemia] Onset: 12-29-2023 Episodic Other upper respiratory infections (2 sources) Acute upper respiratory infection, unspecified; Translations: [Acute sinusitis, unspecified] Onset: 09-04-2020 Episodic Unclassified (3 sources) CONTACT W/AND (SUSP) EXPOS COVID-19; Translations: [CONTACT W/AND (SUSP) EXPOS COVID-19] Onset: 08-12-2021 Past or Other Problems Problem Classification Problem Date Documented Da te Episodic/Chronic Unclassified (1 source) CONTACT W/AND (SUSP) EXPOS COVID-19; Translations: [CONTACT W/AND (SUSP) EXPOS COVID-19] Onset: 08-06-2021 Results Test Name Value Interpretation Reference Range Facil ity BASIC METABOLIC PANLon 12-28 Anion gap [Moles/Vol] 11 mmol/L Normal 5-15 [facility] Comment on above: Performed By: #### B MP #### [facility] ([id number]) [address] [place] [address] Calcium [Mass/Vol] 9.4 mg/dL Normal 8.5-10.5 [facility] Comment on above: Performed By: #### B MP #### [facility] ([id number]) [address] [place] [address] Chloride [Moles/Vol] 98 mmol/L Normal 98-109 [facility] Comment on above: Performed By: #### B MP #### [facility] ([id number]) [address] [address] CO2 [Moles/Vol] 26 mmol/L Normal 22-32 [facility] Comment on above: Performed By: #### B MP #### [facility] ([id number]) [address] [place] [address] Creatinine [Mass/Vol] 0.67 mg/dL Normal 0.40-1.00 [facility] Comment on above: Result Comment: METH OD TRACEABLE TO IDMS STANDARD Performed By: #### B MP #### [facility] ([id number]) [address] [place] [address] eGFR (CKD-EPI) NON-RACE DEPENDENT >90 Normal >59 [facility] Comment on above: Result Comment: Reported eGFR is based on the CKD-EPI 2020 equation that does not use a race coefficient. Performed By: #### B MP #### [facility] ([id number]) [address] [place] [address] Glucose [Mass/Vol] 128 mg/dL High 65-99 [facility] Comment on above: Performed By: #### B MP #### [facility] ([id number]) [address] [place] [address] Potassium [Moles/Vol] 4.4 mmol/L Normal 3.5-5.0 [facility] Comment on above: Performed By: #### B MP #### [facility] ([id number]) [address] [place] [address] Sodium [Moles/Vol] 135 mmol/L Normal 134-146 [facility] Comment on above: Performed By: #### B MP #### [facility] ([id number]) [address] [place] [address] Urea nitrogen [Mass/Vol] 12 mg/dL Normal 5-27 [facility] Comment on above: Performed By: #### B MP #### [facility] ([id number]) [address] [place] [address] [facility]on SARS-CoV-2 (COVID-19) RNA BETO+probe Ql (Unsp spec) Not detected Normal NOT DETECTED [facility] Comment on above: Result Comment: This test is not yet approved or cleared by the [place] FDA. When there are no FDA-approved or cleared tests available, and other criteria are met, FDA can make tests available under an emergency access mechanism called an Emergency Use Authorization (EUA). The EUA for this test is supported by the [employer] of Health and Human Service's (HHS's) declaration that circumstances exist to justify the emergency use of in vitro diagnostics for the detection and/or diagnosis of the virus that causes COVID-19. This EUA will remain in effect (meaning this test can be used) for the duration of the COVID-19 declaration justifying emergency of IVDs, unless it is terminated or revoked by FDA (after which the test may no longer be used). When diagnostic testing is negative, the possibility of a false negative should be considered in the context of a patient's recent exposures and the presence of clinical signs and symptoms consistent with SARS-CoV-2. Performed By: #### C VDTB #### [facility] [address] [place], [place] [id number] Dr. Anh Wright Covid-19 PCR ([facility])on 08-02 EUA Statement SEE BELOW Normal [facility] Comment on above: Result Comment: This test is not yet approved or cleared by the [place] FDA. When there are no FDA-approved or cleared tests available, and other criteria are met, FDA can make tests available under an emergency access mechanism called an Emergency Use Authorization (EUA). The EUA for this test is supported by the [place] of Health and Human Service?s (HHS?s) declaration that circumstances exist to justify the emergency use of in vitro diagnostics for the detection and/or diagnosis of the virus that causes COVID-19. This EUA will remain in effect (meaning this test can be used) for the duration of the COVID-19 declaration justifying emergency of IVDs, unless it is terminated or revoked by FDA (after which the test may no longer be used). When diagnostic testing is negative, the possibility of a false negative should be considered in the context of a patients recent exposures and the presence of clinical signs and symptoms consistent with SARS-CoV-2. Performed By: #### C VDTB #### [facility] [address] [place] [id number] Dre Daley SARS-CoV-2 (COVID-19) RNA BETO+probe Ql (Unsp spec) Not detected Normal NOT DETECTED [facility] Comment on above: Result Comment: This test is not yet approved or cleared by the [place] FDA. When there are no FDA-approved or cleared tests available, and other criteria are met, FDA can make tests available under an emergency access mechanism called an Emergency Use Authorization (EUA). The EUA for this test is supported by the [place] of Health and Human Service's (HHS's) declaration that circumstances exist to justify the emergency use of in vitro diagnostics for the detection and/or diagnosis of the virus that causes COVID-19. This EUA will remain in effect (meaning this test can be used) for the duration of the COVID-19 declaration justifying emergency of IVDs, unless it is terminated or revoked by FDA (after which the test may no longer be used). Performed By: #### [facility] #### [facility] [address], [place] [address] Dre Daley Encounters Encounter Date Encounter Type Care Provider Facility Start: 12-30-2023 End: [facility] Start: 08-06-2021 End: 08-06-[address] NICK KRAFT Facility:[facility] Start: 08-28-2020 End: 08-28-[address] NICK KRAFT Facility: Payers Date Payer Category Payer Medicare [id number] 2019 Unknown [id number] 1961 Self-pay [id number] 1960 Unknown [id number] 1960 Unknown [id number] 1960 Unknown [id number] Summary Purpose Family History No Family History Records FoundNo Family History Records Found Advance Directives No Advanced Directives Records FoundNo Advanced Directives Records Found Additional Source Comments INFORMATION SOURCE (unrecogn ized section and content) DATE CREATED AUTHOR 08/13/2021 [facility] DATE CREATED AUTHOR AUTHOR'S ORGANIZ ATION 12/30/2023 [facility] FOR RECORDS PERTAINING TO PATIENTS WHO ARE OR HAVE BEEN ENROLLED IN A CHEMICAL DEPENDENCY/SUBSTANCEABUSE PROGRAM, SOME INFORMATION MAY BE OMITTED. This clinical summary was aggregated from multiple sources. Caution should be exercised in using it in the provision of clinical care. This summary normalizes information from multiple sources, and as a consequence, information in this document may materially change the coding, format and clinical context of patient data. In addition, data may be omitted in some cases. CLINICAL DECISIONS SHOULD BE BASED ON THE PRIMARY CLINICAL RECORDS. [facility]. provides no warranty or guarantee of the accuracy or completeness of information in this document.
== END 2024-05-09 10:42 | disposition home or self-care (01) ==
LOC: US 10:41
PROVIDERS: Visit Provider Family Medicine
DX: R22.1 Localized swelling, mass and lump, neck (principal)
CPT/HCPCS: 76536

== ENCOUNTER 2024-06-26 20:00 | Outpatient (OUT) | payer OTHER, SELFPAY ==
--- OUTSIDE RECORDS SUMMARY | 2024-06-27 07:27 | XMS_ITS | CCD ---
Author Organization [facility] Care Team Providers Care It Manager Name Role Phone LUCIA, DR CEDRICK Ramírez Admitting Unavailable FURLONG, DR CEDRICK Ramírez Primary Care Unavailable FURLONG, DR CEDRICK Ramírez Consulting Unavailable FURLONG, DR CEDRICK Ramírez Attending Unavailable FURLONG, DR CERDICK Ramírez Admitting Unavailable FURLONG, DR CEDRICK Ramírez Primary Care Unavailable FURLONG, DR CEDRICK Ramírez Consulting Unavailable FURLONG, DR CEDRICK Ramírez Attending Unavailable FURLONG, CEDRICK Ramírez Referring Unavailable FURLONG, CEDRICK Ramírez Primary Care Unavailable FURLONG, CEDRICK Ramírez Attending Unavailable FURLONG, CEDRICK Ramírez Referring Unavailable FURLONG, CEDRICK Ramírez Primary Care Unavailable FURLONG, CEDRICK Ramírez Attending Unavailable FURLONG, CEDRICK Ramírez Referring Unavailable FURLONG, CEDRICK Ramírez Primary Care Unavailable FURLONG, CEDRICK Ramírez Attending Unavailable FURLONG, CEDRICK Ramírez Referring Unavailable FURLONG, CEDRICK Ramírez Primary Care Unavailable Furlong DOCedrick Primary Care Provider Cedrick Kraft MD Primary Care Provider CHRISTELLE WRIGHT Attending Unavailable DIOGOLONGCEDRICK Referring Unavailable CHRISTELLE WRIGHT Referring Unavailable CHRISTELLE WRIGHT Attending Unavailable Allergies Allergy Classification Reported Allergen(s) Allergy Type Date of Onset Reaction(s) Facility Opioid Agonists (1 source) Morphine; Translations: [MORPHINE] Drug Allergy 3 [facility] Penicillins (antibiotic) (1 source) Penicillins; Translations: [PENICILLINS] Drug Allergy 3 [facility] Serotonin Reuptake Inhibitors (SSRIs) (1 source) FLUoxetine; Translations: [FLUOXETINE] Drug Allergy 3 [facility] (2 sources) Morphine; Translations: [MORPHINE] Drug Allergy 6 [facility] (2 sources) Penicillins; Translations: [PENICILLINS] Drug allergy (disorder) 6 [facility] (8 sources) FLUoxetine; Translations: [FLUOXETINE] Drug Allergy 3 Abnormal Behavior, Dizziness [facility] (7 sources) Morphine Drug Allergy 3 Shortness Of Breath, Rash [facility] (2 sources) Penicillins Propensity to adverse reactions to drug 3 Rash [facility] (5 sources) Penicillins Drug Intolerance 3 Rash [facility] Healthcare Medications Current Medications Medication Drug Class(es) Dates Sig (Normalized) Sig (Original) 8 hr acetaminophen 650 mg extended release oral tablet (8 sources) take 1 tablet by mouth every eight hours as needed acetaminophen (Tylenol 8 Hour) 650 MG ER tablet Take 650 mg by mouth every 8 (eight) hours if needed Active acetaminophen 325 mg / chlorpheniramine maleate 2 mg oral tablet (6 sources) Histamine-1 Receptor Antagonist Start: 05-24-2023 Chlorpheniramine-A cetaminophen 2-325 MG tablet Take by mouth 05/24/2023 Active acetaminophen 21.7 mg/ml / dextromethorphan hydrobromide 1 mg/ml / doxylamine succinate 0.417 mg/ml oral solution (3 sources) Uncompetitive A-dbhljs-L-asparta te Receptor Antagonist, Sigma-1 Agonist Start: 05-24-2023 End: 05-16-2024 MN-Cbeerzyiyn-Muww aminophen 15-6.25-325 MG/15ML liquid Take by mouth 05/24/2023 05/16/2024 Discontinued (Therapy completed) [id number] 200 actuat albuterol 0.09 mg/actuat metered dose inhaler (8 sources) beta2-Adrenergic Agonist take 2 puff(s) by inhalation every six hours albuterol HFA 90 mcg/act inhaler Inhale 2 puffs every 6 (six) hours if needed Active take 2 puff(s) by in halation every six hours as needed for wheezing albuterol (PROVENTIL HFA;VENTOLIN HFA) 9 0 mcg/actuation inhaler Inhale 2 puffs every 6 (six) hours as needed for wheezing. Active 12 hr buPROPion hydrochloride 150 mg extended release oral tablet (3 sources) Aminoketone Start: 05-24-2023 End: 05-16-2024 take 1 tablet by mouth every twelve hours in the morning buPROPion SR (Wellbutrin SR) 150 MG 12 hr tablet Take 1 tablet by mouth in the morning and 1 tablet before bedtime. 05/24/2023 05/16/2024 Discontinued (Therapy completed) cholecalciferol 0.05 mg oral tablet (8 sources) Vitamin D Start: 01-09-2024 cholecalcifero l (Vitamin D-3) 50 MCG (1999 UT) tablet Take 50 mcg by mouth 01/09/2024 Active Start: 03-16-2023 take 1 capsule by uth once daily cholecalciferol, vitamin D3, (VITAMIN D3) 5,000 units capsule TAKE 1 CAPSULE BY MOUTH EVERY DAY 100 capsule 03/16/2023 Active clindamycin 300 mg oral capsule (8 sources) Lincosamide Antibacterial Start: 06-12-2024 End: 06-26-2024 clindamycin (Cleocin) 300 MG capsule Indications: Acute lymphadenitis Take 1 capsule (300 mg) by mouth in the morning and 1 capsule (300 mg) at noon and 1 capsule (300 mg) in the evening and 1 capsule (300 mg) before bedtime. Do all this for 14 days. 56 capsule 06/12/2024 06/26/2024 Active Start: 05-08-2024 End: 05-30-2024 clindamycin (Cleocin) 300 MG capsule Indications: Mass of right side of neck Take 1 capsule (300 mg) by mouth in the morning and 1 capsule (300 mg) at noon and 1 capsule (300 mg) in the evening and 1 capsule (300 mg) before bedtime. Do all this for 14 days. 56 capsule 05/16/2024 05/30/2024 Active esomeprazole 20 mg delayed release oral capsule (3 sources) Proton Pump Inhibitor End: 05-16-2024 esomeprazole (NexIUM) [address] capsule 1 capsule 1 (one) time each day at the same time 05/16/2024 Discontinued (Therapy completed) 24 hr fexofenadine hydrochloride 180 mg / pseudoephedrine hydrochloride 240 mg extended release oral tablet (8 sources) alpha-Adrenergic Agonist, Histamine-1 Receptor Antagonist take 24-180 tablets by mouth every twenty-four hours in the morning fexofenadine-pseud oephedrine ER (Umu-D 24) 180-240 MG 24 hr tablet Take 1 tablet by mouth in the morning. Active take 1 tablet by sheila th once in the morning fexofenadine-pseudoephedrine (UMU-D 24) 180-240 mg per 24 hr tablet Take 1 tablet by mouth in the morning. Active fluticasone propionate 0.05 mg/actuat metered dose nasal spray (2 sources) Corticosteroid Start: 06-12-2024 End: 06-12-2025 take 2 spray(s) nasal route once daily fluticasone (Flonase) 50 MCG/ACT nasal spray Indications: Chronic rhinitis Administer 2 sprays into each nostril Daily Shake gently. Before first use, prime pump. After use, clean tip and replace cap. 48 g 3 06/12/2024 06/12/2025 Active levothyroxine sodium 0.112 mg/ml oral solution (8 sources) l-Thyroxine take 112 ug by mouth in the morning levothyroxine (Tirosint-RENETTA) 112 MCG/ML solution Take 112 mcg by mouth in the morning. Active lisinopril 20 mg oral tablet (8 sources) Angiotensin Converting Enzyme Inhibitor take 1 tablet by mouth in the morning lisinopril 20 MG tablet Take 20 mg by mouth in the morning. Active metoprolol tartrate 25 mg oral tablet (8 sources) beta-Adrenergic Raffi Start: 01-09-2024 metoprolol tartrate (Lopressor) 25 MG tablet Take 12.5 mg by mouth 01/09/2024 Active take 0.5 tablet by m outh in the morning, then take 0.5 tablet by mouth at bedtime metoprolol tartrate (LOPRESSOR) 25 mg tablet Take 0.5 tablets (12.5 mg total) by mouth in the morning and 0.5 tablets (12.5 mg total) before bedtime. Active omeprazole 20 mg delayed release oral capsule (8 sources) Proton Pump Inhibitor take 1 capsule by mouth in the morning omeprazole (PriLOSEC) [address] capsule Take 20 mg by mouth in the morning. Active microencapsulated potassium chloride 10 meq extended release oral tablet (8 sources) Start: 12-27-19 potassium chloride CR (Klor-Con M10) 10 MEQ ER tablet TAKE 2 TABLETS BY MOUTH TWICE DAILY FOR 7 DAYS 12/27/2023 Active Problems Active Problems Problem Classification Problem Date Documented Date Episodic/Chronic Acquired foot deformities (14 sources) Bunion; Translations: [Bunion of right foot] Onset: 03-30-2024 03-30-2024 Episodic Anxiety disorders (6 sources) Anxiety; Translations: [Anxiety disorder, unspecified] Onset: 05-15-2024 05-15-2024 Chronic Asthma (6 sources) Asthma; Translations: [Unspecified asthma, uncomplicated] Onset: 05-15-2024 05-15-2024 Chronic Esophageal disorders (6 sources) Gastroesophageal reflux disease; Translations: [Gastro-esophageal reflux disease without esophagitis] Onset: 05-15-2024 05-15-2024 Chronic Essential hypertension (10 sources) Essential (primary) hypertension; Translations: [Hypertensive disorder] Onset: 12-29-2023 12-29-2023 Chronic Lymphadenitis (4 sources) Acute lymphadenitis; Translations: [Acute lymphadenitis, unspecified] 05-08-2024 Episodic Nutritional deficiencies (6 sources) Vitamin D deficiency; Translations: [Vitamin D deficiency, unspecified] Onset: 05-15-2024 05-15-2024 Chronic Osteoarthritis (14 sources) Osteoarthritis of joint right ankle; Translations: [Primary osteoarthritis, right ankle and foot] Onset: 03-30-2024 03-30-2024 Chronic Other connective tissue disease (2 sources) Bilateral bone spur of calcaneum; Translations: [Calcaneal spur, right foot] Onset: 03-30-2024 03-30-2024 Episodic Other nutritional; endocrine; and metabolic disorders (1 source) Morbid (severe) obesity due to excess calories; Translations: [Morbid (severe) obesity due to excess calories] Onset: 12-29-2023 Chronic Other nutritional; endocrine; and metabolic disorders (8 sources) Morbid obesity; Translations: [Morbid (severe) obesity due to excess calories] Onset: 12-29-2023 12-29-2023 Chronic Other skin disorders (1 source) Localized swelling, mass and lump, neck; Translations: [Localized swelling, mass and lump, neck] Onset: 05-08-2024 Episodic Other skin disorders (6 sources) Mass of neck; Translations: [Localized swelling, mass and lump, neck] 05-08-2024 Episodic Other upper respiratory disease (2 sources) Chronic rhinitis; Translations: [Chronic rhinitis] 06-12-2024 Chronic Other upper respiratory infections (2 sources) Acute upper respiratory infection, unspecified; Translations: [Acute sinusitis, unspecified] Onset: 09-04-2020 Episodic Residual codes; unclassified (2 sources) Obstructive sleep apnea syndrome; Translations: [Obstructive sleep apnea (adult) (pediatric)] 06-12-2024 Chronic Screening and history of mental health and substance abuse codes (1 source) Encounter for screening for depression; Translations: [Encounter for screening for depression] Onset: 03-30-2024 Episodic Thyroid disorders (9 sources) Hypothyroidism, unspecified; Translations: [Acquired hypothyroidism] Onset: 12-29-2023 12-29-2023 Chronic Unclassified (3 sources) CONTACT W/AND (SUSP) EXPOS COVID-19; Translations: [CONTACT W/AND (SUSP) EXPOS COVID-19] Onset: 08-12-2021 Unclassified (1 source) Swollen Glands Onset: 05-08-2024 Unclassified (1 source) Annual Exam Onset: 03-30-2024 Past or Other Problems Problem Classification Problem Date Documented Da te Episodic/Chronic Fluid and electrolyte disorders (14 sources) Hypo-osmolality and hyponatremia; Translations: [Hypokalemia] Onset: 12-29-2023 12-29-2023 Episodic Mood disorders (2 sources) Mood disorders Onset: 05-08-2024 05-08-2024 Other screening for suspected conditions (not mental disorders or infectious disease) (1 source) Encounter for screening for malignant neoplasm of colon; Translations: [Encounter for screening for malignant neoplasm of colon] Onset: 12-29-2023 Episodic Unclassified (1 source) CONTACT W/AND (SUSP) EXPOS COVID-19; Translations: [CONTACT W/AND (SUSP) EXPOS COVID-19] Onset: 08-06-2021 Unclassified (2 sources) Onset: 03-30-2024 03-30-2024 Results Test Name Value Interpretation Reference Range Facil ity CT SOFT TISSUE NECK W IV CON TRASTon 05-30-2024 CT SOFT TISSUE NECK W IV CONTRAST TITLE OF EXAM: CT - CT NECK WITH CONTRAST REASON FOR EXAM: Right side neck pain TECHNIQUE: Axial CT of the neck following the intravenous administration of 100 cc Isovue-300 COMPARISON: None. FINDINGS: Aerodigestive tract: The nasopharynx, oropharynx, hypopharynx, larynx, trachea, and esophagus are normal. Salivary glands: There is mild atrophy of both parotid glands with several intraparotid and periparotid lymph nodes. Peripherally enhancing, ovoid, morphologically abnormal lymph node, right level 2A inferior of the right parotid gland measures 0.8 cm. There are a couple of smaller morphologically abnormal lymph nodes nearby. Lymph nodes: Right level 2A abnormal lymph nodes as above. Mildly prominent right level 2B lymph node, 1.1 cm short axis (series 301/image 50 and 2/52). Otherwise no lymphadenopathy by size criteria. Thyroid: There are a couple of subcentimeter hypoattenuating/hypoen hancing lesions which do not meet ACR criteria warranting further evaluation or follow-up imaging. Soft tissues of the neck: Lymph nodes as above. Otherwise normal. Visualized thorax: Apical centrilobular emphysema. Vascular structures: Minimal right carotid bulb calcification. Retropharyngeal courses of the distal common and proximal internal and external carotid arteries. Paranasal sinuses, face, orbits, and skull (included portions): Normal. Cervical spine: No fracture or significant listhesis. No concerning focal osseous lesion. Straightening of normal cervical lordosis. Severe facet osteoarthrosis on the right at C3-4. IMPRESSION: 1. Subcentimeter though morphologically abnormal right level 2A lymph nodes inferior of the parotid gland, favored reactive or suppurative, particularly in light of patients reported history. 2. Slightly increased size of a less abnormal appearing right level 2B lymph node, favored normal versus reactive. DICTATED ON: 05/30/2024 11:32 AM This report has been electronically signed in approved by the interpreting radiologist. Electronically Signed Erick Hernandez M.D. 2024-05-30 11:41:18 Normal Not Available Comment on above: Order Comment: Zhanna hutchins schedule pt for CT neck w at [facility], week of 05/28/25, creatinine prior to test BASIC METABOLIC PANLon 12-28 Anion gap [Moles/Vol] 11 mmol/L Normal 5-15 [facility] Comment on above: Performed By: #### B MP #### [facility] ([id number]) [address], [address] [place] [address] Calcium [Mass/Vol] 9.4 mg/dL Normal 8.5-10.5 [facility] Comment on above: Performed By: #### B MP #### [facility] ([id number]) [address], [address] [place] [address] Chloride [Moles/Vol] 98 mmol/L Normal 98-109 [facility] Comment on above: Performed By: #### B MP #### [facility] ([id number]) [address], [address] [place] [address] CO2 [Moles/Vol] 26 mmol/L Normal 22-32 [facility] Comment on above: Performed By: #### B MP #### [facility] ([id number]) [address], [address] [place] [address] Creatinine [Mass/Vol] 0.67 mg/dL Normal 0.40-1.00 [facility] Comment on above: Result Comment: METH OD TRACEABLE TO IDMS STANDARD Performed By: #### B MP #### [facility] ([id number]) [address], [address] [place] [address] eGFR (CKD-EPI) NON-RACE DEPENDENT >90 Normal >59 [facility] Comment on above: Result Comment: Reported eGFR is based on the CKD-EPI 1 equation that does not use a race coefficient. Performed By: #### B MP #### [facility] ([id number]) [address], [address] [place] [address] Glucose [Mass/Vol] 128 mg/dL High 65-99 [facility] Comment on above: Performed By: #### B MP #### [facility] ([id number]) [address], [address] [place] [address] Potassium [Moles/Vol] 4.4 mmol/L Normal 3.5-5.0 [facility] Comment on above: Performed By: #### B MP #### [facility] ([id number]) [address], [address] [place] [address] Sodium [Moles/Vol] 135 mmol/L Normal 134-146 [facility] Comment on above: Performed By: #### B MP #### [facility] ([id number]) [address], [address] [place] [address] Urea nitrogen [Mass/Vol] 12 mg/dL Normal 5-27 [facility] Comment on above: Performed By: #### B MP #### [facility] ([id number]) [address], [address] [place] [address] Covid-19 PCR (CVDTB)on SARS-CoV-2 (COVID-19) RNA BETO+probe Ql (Unsp spec) Not detected Normal NOT DETECTED [facility] Comment on above: Result Comment: This test is not yet approved or cleared by the [place] FDA. When there are no FDA-approved or cleared tests available, and other criteria are met, FDA can make tests available under an emergency access mechanism called an Emergency Use Authorization (EUA). The EUA for this test is supported by the Parking Meter Attendant of Health and Human Service's (HHS's) declaration [...] consistent with SARS-CoV-2. Performed By: #### C VDTBH #### [facility] [address] [place] [address] Dr. Anh Wright Covid-19 PCR (CVDTB)on 08-02 EUA Statement SEE BELOW Normal [facility] Comment on above: Result Comment: This test is not yet approved or cleared by the [place] FDA. When there are no FDA-approved or cleared tests available, and other criteria are met, FDA can make tests available under an emergency access mechanism called an Emergency Use Authorization (EUA). The EUA for this test is supported by the Parking Meter Attendant of Health and Human Service?s (HHS?s) declaration [...] consistent with SARS-CoV-2. Performed By: #### C VDTBH #### [facility] [address] [address] Dre Daley SARS-CoV-2 (COVID-19) RNA BETO+probe Ql (Unsp spec) Not detected Normal NOT DETECTED [facility] Comment on above: Result Comment: This test is not yet approved or cleared by the [place] FDA. When there are no FDA-approved or cleared tests available, and other criteria are met, FDA can make tests available under an emergency access mechanism called an Emergency Use Authorization (EUA). The EUA for this test is supported by the Parking Meter Attendant of Health and Human Service's (HHS's) declaration [...] longer be used). Performed By: #### C VDTBH #### [facility] [address] [address] Dre Daley Vital Signs Date Time Vital Sign Value Performing Clinician Facility 06-12-2024 09:04-0500 Body height 162.6 cm Christelle Wright MD Work Phone: [facility] 06-12-2024 09:04-0500 Body mass index (BMI) [Ratio] 41.2 kg/m2 Christelle Wright MD Work Phone: [facility] 06-12-2024 09:04-0500 Body weight 108.86 kg Christelle Wright MD Work Phone: [facility] 06-12-2024 09:04-0500 Diastolic blood pressure 77 mm[Hg] Christelle Wright MD Work Phone: [facility] 06-12-2024 09:04-0500 Systolic blood pressure 141 mm[Hg] Christelle Wright MD Work Phone: [facility] 05-16-2024 09:49-0400 Body height 162.6 cm Christelle Wright MD Work Phone: [facility] 05-16-2024 09:49-0400 Body mass index (BMI) [Ratio] 41.2 kg/m2 Christelle Wright MD Work Phone: [facility] 05-16-2024 09:49-0400 Body weight 108.86 kg Christelle Wright MD Work Phone: [facility] 05-16-2024 09:49-0400 Diastolic blood pressure 90 mm[Hg] Christelle Wright MD Work Phone: [facility] 05-16-2024 09:49-0400 Systolic blood pressure 152 mm[Hg] Christelle Wright MD Work Phone: [facility] 05-08-2024 13:59-0400 Body height 162.6 cm Cedrick [email or web address] Work Phone: [facility] 05-08-2024 13:59-0400 Body mass index (BMI) [Ratio] 42.16 kg/m2 Cedrick [employer] Work Phone: [place] 05-08-2024 13:59-0400 Body temperature 98.2 [degF] Cedrick Kraft DO Work Phone: [facility] 05-08-2024 13:59-0400 Body weight 111.4 kg Cedrick Kraft DO Work Phone: [facility] 05-08-2024 13:59-0400 Diastolic blood pressure 82 mm[Hg] Cedrick MelendezAiming DO Work Phone: [facility] 05-08-2024 13:59-0400 Heart rate 92 /min Cedrick [employer] Work Phone: [facility] 05-08-2024 13:59-0400 SaO2% (BldA) [Mass fraction] 94 % Cedrick [employer] Work Phone: [facility] 05-08-2024 13:59-0400 Systolic blood pressure 164 mm[Hg] Cedrick Kraft [employer] Work Phone: [place] Encounters Encounter Date Encounter Type Care Provider Facility Start: 06-12-2024 End: 06-12-2024 Kia Wright MD Work Phone: [facility] Start: 06-12-2024 End: 06-12-2024 Kia Wright MD Work Phone: [facility] Start: 06-12-2024 End: 06-12-2024 Office outpatient visit 25 minutes Christelle Wright MD Work Phone: [facility] Comment on above: Acute lymphadenitis (Primary Dx); Chronic rhinitis; GUSTAVO (obstructive sleep apnea) Start: 06-12-2024 End: 06-12-2024 ambulatory CHRISTELLE H TIMMIS Not Available Start: 05-30-2024 End: 05-30-2024 ambulatory CHRISTELLE H TIMMIS Not Available Start: 05-16-2024 End: 05-16-2024 Bamboo flowsfranklin Wright MD Work Phone: [facility] Start: 05-16-2024 End: 05-16-2024 Bamboo flowsheet Christelle Wright MD Work Phone: [facility] Start: 05-16-2024 End: 05-16-2024 Office outpatient new 45 minutes Christelle Wright MD Work Phone: [facility] Comment on above: Mass of right side o f neck (Primary Dx) Start: 05-16-2024 End: 05-16-2024 ambulatory CHRISTELLE WRIGHT Not Available Start: 05-11-2024 End: 05-11-2024 Orders Only [facility] DO Work Phone: [facility] Comment on above: Neck mass (Primary D x); Lymphadenitis, acute Start: 05-08-2024 End: 05-08-2024 Office outpatient visit 25 minutes [facility]edrick Lucia [facility] Comment on above: Neck mass (Primary D x); Lymphadenitis, acute Start: 05-08-2024 End: 05-08-2024 ambulatory [facility] Start: 03-30-2024 End: 03-30-2024 ambulatory [facility] Start: 03-30-2024 Encounter for genera l adult medical examination without abnormal findings [facility] Start: 12-30-2023 End: 12-30-[address] [facility] Start: 12-29-2023 End: 12-29-2023 ambulatory [facility] Start: 08-06-2021 End: 08-06-[address] CEDRICK KRAFT Facility:[facility] Start: 08-28-2020 End: 08-28-[address] CEDRICK KRAFT Facility:[facility] Procedures Date Procedure Procedure Detail Performing Clinician Start: 05-08-2024 Adult depression screening assessment [facility] DO Work Phone: Start: 12-29-2023 Follow-up visit Follow-up CEDRICK KRAFT Plan of Treatment Date Care Activity Detail Author Start: 05-08-2025 Adult BMI Screening Adult BMI Screen ing [facility] Start: 05-08-2025 Depression Screening Depression Scre ening [facility] Start: 05-08-2025 Fall Risk Screening Fall Risk Screen ing [facility] Start: 05-08-2025 Tobacco Screening Tobacco Screening [facility] Start: 03-30-2025 Adult BMI Follow Up Plan Adult BMI Follow Up Plan [facility] Start: 03-30-2025 Medicare Annual Well ness Visit Medicare Annual Wellness Visit [facility] Start: 07-10-2024 End: 07-10-2024 Patient encounter procedure 07/10/2024 9:10 AM EST Office Visit [facility] [address] [place] [address] Christelle Wright MD [address] [place] [address] [facility] Start: 06-12-2024 End: 06-12-2025 US Head and neck soft tissue US head neck soft tissue Imaging Routine Acute lymphadenitis Expected: 06/12/2024 (Approximate), Expires: 06/12/2025 [facility] Work Phone: Comment on above: Expected: 06/12/2024 (Approximate), Expires: 06/12/2025 Start: 06-12-2024 End: 06-12-2024 Patient encounter procedure 06/12/2024 9:10 AM EST Office Visit [facility] [address] [place] [address] Christelle Wright MD [address] [place] [address] [facility] Start: 05-16-2024 End: 05-16-2025 Creatinine [Mass/volume] in Serum or Plasma Creatinine, Serum Lab Routine Mass of right side of neck Expected: 05/16/2024 (Approximate), Expires: 05/16/2025 [facility] Comment on above: Expected: 05/16/2024 (Approximate), Expires: 05/16/2025 Start: 05-16-2024 End: 05-16-2025 CT Neck W contrast IV CT soft tissue neck w IV contrast Imaging Routine Mass of right side of neck Expected: 05/16/2024 (Approximate), Expires: 05/16/2025 [facility] Work Phone: Comment on above: Expected: 05/16/2024 (Approximate), Expires: 05/16/2025 Start: 05-16-2024 End: 05-16-2024 Patient encounter procedure 05/16/2024 9:20 AM EDT Office Visit [facility] [address] [facility] [address] [place] [id number] Christelle Wright MD [address] [facility] [address] [place], [place] [id number] Arrived [facility] Comment on above: Arrived Start: 05-08-2024 End: 05-08-2025 US Head and neck soft tissue Ultrasound soft tissue head neck Imaging Routine Neck mass Expected: 05/08/2024, Expires: 05/08/2025 [facility] Work Phone: Comment on above: Expected: 05/08/2024 , Expires: 05/08/2025 Start: 04-01-2024 [facility]enza [facility]: 2008 Administration of varicella zoster vaccine Zoster (Shingles) Vaccine (1 of 2) [facility] Start: 2003 Screening for malign ant neoplasm of colon Colon Cancer Screening 3 Year Cologuard [facility] Start: 1998 Screening for malign ant neoplasm of breast [facility] Start: 1977 DTaP,Tdap and Td Vaccines (1 - Tdap) DTaP,Tdap and Td Vaccines (1 - Tdap) [facility] Payers Date Payer Category Payer Medicare [employer] MEDICARE ADVANTAGE [id number] 2023-Present [phone] [address] [place] [address] [id number] 2023 Medicare (Managed Care) [facility] [id number] 2023 Medicare [id number] 2019 Unknown [id number] 1959 Self-pay [id number] 1960 Unknown [id number] [id number] 1960 Unknown [id number] [id number] 1960 Unknown [id number] [id number]. 2.1286 1958 Unknown [id number] [id number] 1958 Unknown [id number] [id number] 1960 Unknown [id number]. [id number] 1958 Unknown [id number]. [id number] 1960 Unknown [id number] 2.1259 1960 Unknown [id number] [id number] Social History Date Type Detail Facility Start: 08-23-2022 End: 05-16-2024 Tobacco smoking status NHIS Never smoked tobacco [facility] Start: 08-23-2022 End: 05-16-2024 Tobacco use and exposure Smokeless tobacco non-user [facility] Start: 05-08-2024 Alcoholic beverage intake Ex-drinker (finding) [facility] Start: 03-30-2024 End: 06-12-2024 History of Social function [facility] Start: 03-30-2024 End: 06-12-2024 [facility] Has the [facility], or [employer] threatened to shut off services in your home in past 12Mo No [facility] Are you now , , , , never or living with a partner? [facility] How often to you hav e a drink containing alcohol? Never [facility] How many standard drinks containing alcohol do you have on a typical day? Patient does not drink [facility] Do you feel stress - tense, restless, nervous, or anxious, or unable to sleep at night because your mind is troubled all the time - these days [OSQ] Only a little [facility] Start: 1960 Sex assigned at Not on file [facility] consumption unknown [facility] Start: 05-16-2024 End: 06-12-2024 Alcoholic beverage intake Lifetime non-drinker (finding) [facility] Clinical Notes 05-08-2024 to 06-12-2024 Christelle Wright MD - 06/12/2024 9:10 AM ESTAddendum Note - Zenaida Giron RN - 06/12/2024 9:10 AM ESTAddendum Note - Zenaida Giron RN - 06/12/2024 9:10 AM Saritha Wright MD - 05/16/2024 9:20 AM EDT Note Date & Type Note Facility 06-12-2024 History of Presen t illness Narrative Subjective Patient ID: Mari Quiroz is a 63 y.o. female who presents for Neck Mass (Follow up CT [facility] 05/30/24) Finished Clindamycin 05/29. Still some periodic pain. CT neck reveals a round mass with a possible necrotic center immediately inferior to the RT parotid tail. Pt also c/o awakening gasping for air and snores heroically. Not rested in the morning. Has PM somnolence. Has HTN No family history on file. Active Ambulatory Problems Diagnosis Date Noted Acquired hypothyroidism (CMS/HCC) 12/29/2023 Flat foot (pes planus) (acquired), left foot 05/15/2024 Acquired pes planus of right foot 05/15/2024 Anxiety 05/15/2024 Asthma (CMS/HCC) 05/15/2024 Gastroesophageal reflux disease 05/15/2024 Hypertension (CMS/HCC) 05/15/2024 Hyponatremia 12/29/2023 Obesity, morbid (CMS/[facility]) 12/29/2023 Osteoarthritis of right ankle 03/30/2024 Vitamin D deficiency 05/15/2024 Resolved Ambulatory Problems Diagnosis Date Noted No Resolved Ambulatory Problems Past Medical History: Diagnosis Date High blood pressure (CMS/HCC) Neck mass Past Surgical History: Procedure Laterality Date SECTION, CLASSIC 1983 1986 1988 CHOLECYSTECTOMY 2005 HYSTERECTOMY 2006 THYROIDECTOMY Left zeina Allergies Allergen Reactions Morphine Rash and Shortness of breath Fluoxetine Dizziness Other Reaction(s): Abnormal Behavior Penicillins Rash Current Outpatient Medications on File Prior to Visit Medication Sig Dispense Refill acetaminophen (Tylenol 8 Hour) 650 MG ER tablet Take 650 mg by mouth every 8 (eight) hours if needed albuterol HFA 90 mcg/act inhaler Inhale 2 puffs every 6 (six) hours if needed Chlorpheniramine-Acetaminophen 2-325 MG tablet Take by mouth cholecalciferol (Vitamin D-3) 50 MCG (1999 UT) tablet Take 50 mcg by mouth fexofenadine-pseudoephedrine ER (Umu-D 24) 180-240 MG 24 hr tablet Take 1 tablet by mouth in the morning. levothyroxine (Tirosint-RENETTA) 112 MCG/ML solution Take 112 mcg by mouth in the morning. lisinopril 20 MG tablet Take 20 mg by mouth in the morning. metoprolol tartrate (Lopressor) 25 MG tablet Take 12.5 mg by mouth omeprazole (PriLOSEC) [address] capsule Take 20 mg by mouth in the morning. potassium chloride CR (Klor-Con M10) 10 MEQ ER tablet TAKE 2 TABLETS BY MOUTH TWICE DAILY FOR 7 DAYS No current facility-administered medications on file prior to visit. Objective Last Recorded Vitals Vitals: 06/12/24 0904 BP: 141/77 ENT Physical Exam Neck Neck comments: No palpable mass, but body habitus limits exam. Assessment/Plan Diagnoses and all orders for this visit: Acute lymphadenitis - clindamycin (Cleocin) 300 MG capsule; Take 1 capsule (300 mg) by mouth in the morning and 1 capsule (300 mg) at noon and 1 capsule (300 mg) in the evening and 1 capsule (300 mg) before bedtime. Do all this for 14 days. Chronic rhinitis - fluticasone (Flonase) 50 MCG/ACT nasal spray; Administer 2 sprays into each nostril Daily Shake gently. Before first use, prime pump. After use, clean tip and replace cap. GUSTAVO (obstructive sleep apnea) Pt's CT findings are most C/W a resolving acute lymphadenitis with a suppurative LN. I will extend the clindamycin again and check an US. If fails to fully resolve I will get an FNA Pt almost certainly has GUSTAVO. Sleep study and F/U documented in this encounter [facility] 06-12-2024 Miscellaneous Notes Addended by: ZENAIDA GIRON on: 06/12/2024 10:00 AM Modules accepted: Orders documented in this encounter [facility] 06-12-2024 Note Addended by: ZENAIDA GIRON on: 06/12/2024 10:00 AM Modules accepted: Orders [facility] Work Phone: 06-12-2024 Note Addended by: ZENAIDA GIRON on: 06/12/2024 10:00 AM Modules accepted: Orders [facility] Work Phone: 05-16-2024 History of Presen t illness Narrative Subjective Patient ID: Mari Quiroz is a 63 y.o. female who presents for Neck Mass Pt reports she awoke 2 weeks ago with RT eye, cheek, and neck pain. Pt also had a tender RT neck mass. Swelling and pain responded to cold compress. Last Tuesday started on clinda 300mg QID x 5 days. US obtained that shows a complex 1.9 cyst. Pt reports she has a long h/o RT neck swelling with URI. Pt awoke with severe URI sx Review of Systems All other systems reviewed and are negative. No family history on file. Active Ambulatory Problems Diagnosis Date Noted Acquired hypothyroidism ([facility]) 12/29/2023 Flat foot (pes planus) (acquired), left foot 05/15/2024 Acquired pes planus of right foot 05/15/2024 Anxiety 05/15/2024 Asthma ([facility]) 05/15/2024 Gastroesophageal reflux disease 05/15/2024 Hypertension ([facility]) 05/15/2024 Hyponatremia 12/29/2023 Obesity, morbid ([facility]) 12/29/2023 Osteoarthritis of right ankle 03/30/2024 Vitamin D deficiency 05/15/2024 Resolved Ambulatory Problems Diagnosis Date Noted No Resolved Ambulatory Problems Past Medical History: Diagnosis Date High blood pressure ([facility]) Neck mass Past Surgical History: Procedure Laterality Date SECTION, CLASSIC 1983 1986 1988 CHOLECYSTECTOMY 2005 HYSTERECTOMY 2006 THYROIDECTOMY Left zeina Allergies Allergen Reactions Morphine Rash and Shortness of breath Fluoxetine Dizziness Other Reaction(s): Abnormal Behavior Penicillins Rash Current Outpatient Medications on File Prior to Visit Medication Sig Dispense Refill acetaminophen (Tylenol 8 Hour) 650 MG ER tablet Take 650 mg by mouth every 8 (eight) hours if needed albuterol HFA 90 mcg/act inhaler Inhale 2 puffs every 6 (six) hours if needed Chlorpheniramine-Acetaminophen 2-325 MG tablet Take by mouth cholecalciferol (Vitamin D-3) 50 MCG (1999) tablet Take 50 mcg by mouth fexofenadine-pseudoephedrine ER (Umu-D 24) 180-240 MG 24 hr tablet Take 1 tablet by mouth in the morning. levothyroxine (Tirosint-RENETTA) 112 MCG/ML solution Take 112 mcg by mouth in the morning. lisinopril 20 MG tablet Take 20 mg by mouth in the morning. metoprolol tartrate (Lopressor) 25 MG tablet Take 12.5 mg by mouth omeprazole (PriLOSEC) [address] capsule Take 20 mg by mouth in the morning. potassium chloride CR (Klor-Con M10) 10 MEQ ER tablet TAKE 2 TABLETS BY MOUTH TWICE DAILY FOR 7 DAYS [DISCONTINUED] buPROPion SR (Wellbutrin SR) 150 MG 12 hr tablet Take 1 tablet by mouth in the morning and 1 tablet before bedtime. [DISCONTINUED] clindamycin (Cleocin) 300 MG capsule [DISCONTINUED] XW-Xclzlizjtp-Suaspedmpijds 15-6.25-325 MG/15ML liquid Take by mouth [DISCONTINUED] esomeprazole (NexIUM) [address] capsule 1 capsule 1 (one) time each day at the same time No current facility-administered medications on file prior to visit. Objective Last Recorded Vitals Vitals: 05/16/24 0949 BP: 152/90 ENT Physical Exam Constitutional Appearance: patient appears well-developed, well-nourished and well-groomed, Head and Face Appearance: head appears normal and face appears atraumatic; Ear Ear Canals: right ear canal normal; left ear canal normal; Tympanic Membranes: right tympanic membrane normal; left tympanic membrane normal; Neck Neck: neck normal; neck palpation normal; Thyroid: thyroid normal; Neck comments: RT zone 2/3 mass 2cm Respiratory Inspection: breathing unlabored; normal breathing rate; Auscultation: breath sounds are clear; Cardiovascular Inspection: extremities are warm and well perfused; no peripheral edema present; Auscultation: regular rate and rhythm; Assessment/Plan Diagnoses and all orders for this visit: Mass of right side of neck 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 I will restart clinda and see pt in [address] neck. documented in this encounter [facility] 05-08-2024 History of Presen t illness Narrative Images from the original note were not included. Subjective Patient ID: Mari Quiroz is a 63 y.o. female. Dorys presents today for a lump on the right side of her neck. She started with a swollen gland last Tuesday. It worsened. She was having sinus and allergy symptoms. Her also had upper respiratory symptoms. It was very sore to the touch. It got very large over the next couple days. She used cold washcloth over the weekend and it helped tremendously. It had gotten smaller but then woke up today and then her eyes and the other side of her face started to hurt. She did have a cat but her son took it 2-3 months ago. She did not have a fever with it. Pain did not increase when she ate or chewed. The following portions of the patient's history were reviewed and updated as appropriate: allergies, current medications, past family history, past medical history, past social history, past surgical history, problem list, and medication reconciliation was completed including current medication and post discharge medication. Review of Systems Constitutional: Negative for fatigue and fever. Objective Physical Exam Vitals reviewed. Constitutional: General: She is not in acute distress. Appearance: She is obese. She is not ill-appearing. HENT: Head: Normocephalic. Right Ear: Tympanic membrane, ear canal and external ear normal. Left Ear: Tympanic membrane, ear canal and external ear normal. Nose: Nose normal. Mouth/Throat: Lips: [place]. Mouth: Mucous membranes are moist. Dentition: Normal dentition. No dental tenderness, gingival swelling, dental caries, dental abscesses or gum lesions. Tongue: No lesions. Pharynx: Oropharynx is clear. No pharyngeal swelling or oropharyngeal exudate. Tonsils: No tonsillar exudate. Eyes: Extraocular Movements: Extraocular movements intact. Conjunctiva/sclera: Conjunctivae normal. Neck: Comments: Approximately 2 cm x 1 cm firm mass on right lateral neck which is freely movable. It is tender. There is surrounding area of swelling. Pulmonary: Effort: No respiratory distress. Musculoskeletal: Cervical back: Neck supple. Tenderness present. Lymphadenopathy: Cervical: Cervical adenopathy present. Neurological: General: No focal deficit present. Mental Status: She is alert and oriented to person, place, and time. Psychiatric: Attention and Perception: Attention normal. Mood and Affect: Mood and affect normal. Speech: Speech normal. Behavior: Behavior normal. Behavior is cooperative. Thought Content: Thought content normal. Cognition and Memory: Cognition normal. Judgment: Judgment normal. Assessment/Plan Mari was seen today for swollen glands. Diagnoses and all orders for this visit: Neck mass - Ultrasound soft tissue head neck; Future Check an ultrasound of her neck. Lymphadenitis, acute I suspect an infection but she does have a hard mass there as well. Will treat with clindamycin since she has a penicillin allergy. Risks of antibiotics discussed such as C diff and drug resistance. Call if worse or new symptoms. May need to see specialist if it does not improve. Other orders - clindamycin (CLEOCIN) 300 mg capsule; Take 1 capsule (300 mg total) by mouth in the morning and 1 capsule (300 mg total) at noon and 1 capsule (300 mg total) in the evening and 1 capsule (300 mg total) before bedtime. Do all this for 5 days. documented in this encounter [facility] Evaluation note Diagnosis Neck mass- Primary Swelling, mass, or lump in head and neck Lymphadenitis, acute Acute lymphadenitis documented in this encounter [facility]* Diagnosis Neck mass- Primary Swelling, mass, or lump in head and neck Lymphadenitis, acute Acute lymphadenitis documented in this encounter [facility]* Diagnosis Mass of right side of neck- Primary documented in this encounter [facility]* Diagnosis Acute lymphadenitis- Primary Chronic rhinitis GUSTAVO (obstructive sleep apnea) Obstructive sleep apnea (adult) (pediatric) documented in this encounter [facility] HealthcareInstructionsNot on filedocumented in this encounterProMem[facility] SystemInstructionsNot on filedocumented in this encounterProMemorial Health System SystemReason for referral (narrative)* Consultation (Routine) - Pending Review Specialty Diagnoses / Procedures Referred By Lisa nunez Referred To Contact Otolaryngology Diagnoses Neck mass Lymphadenitis, acute Cedrick Kraft DO [address] [facility], [place] [address] Christelle Wright MD [address] [facility] [address] [place] [address] Referral ID Status Reason Start Date Expiration Date Visits Requested Visits Authorized [id number] Pending Review Specialty Services Required 4 05/11/2025 1 1 [facility] Summary Purpose Family History No Family History Records FoundNo Family History Records FoundNo Family History Records FoundNo Family History Records Found Advance Directives No Advanced Directives Records FoundNo Advanced Directives Records FoundNo Advanced Directives Records FoundNo Advanced Directives Records Found Additional Source Comments INFORMATION SOURCE (unrecogn ized section and content) DATE CREATED AUTHOR 08/13/2021 [facility] DATE CREATED AUTHOR AUTHOR'S ORGANIZ ATION 12/30/2023 [facility] DATE CREATED AUTHOR AUTHOR'S ORGANIZ ATION 05/10/2024 [facility] DATE CREATED AUTHOR AUTHOR'S ORGANIZ ATION 06/13/2024 [facility] Reason for Visit (unrecogniz ed section and content) Reason Comments Swollen Glands Right side of neck p ain at a 2-3. Sensitive to touch. X 1 week Reason Comments Neck Mass Specialty Diagnoses / Procedures Referred By Contac t Referred To Contact Otolaryngology Diagnoses Neck mass Lymphadenitis, acute Procedures AMB REFERRAL TO ENT Cedrick Kraft MD [address], [place] [address] Phone: tel: fax: Christelle Wright MD [address] [facility] [address] [place] [address] Phone: tel: fax: Referral ID Status Reason Start Date Expiration Date V isits Requested Visits Authorized [id number] Pending Review 05/11/2024 05/11/2025 1 1 Reason Comments Neck Mass Follow up [facility] Care Teams (unrecognized sec tion and content) It Manager Relationship Specialty Start Date End Date Cedrick Kraft DO [address], [place] [address] PCP - General Family [facility] 12/27/23 It Manager Relationship Specialty Start Date End Date Cedrick Kraft DO [address], [place] [address] [facility] 12/27/23 It Manager Relationship Specialty Start Date End Date Cedrick Kraft MD [address] [place] [address] PCP [facility] 05/14/24 It Manager Relationship Specialty Start Date End Date Cedrick Kraft MD [address], [place] [address] [facility] 05/14/24 It Manager Relationship Specialty Start Date End Date Cedrick Kraft MD [address] [place] [address] PCP [facility] 05/14/24 It Manager Relationship Specialty Start Date End Date Cedrick Kraft MD [address] [place] [address] [facility] 05/14/24 FOR RECORDS PERTAINING TO PATIENTS WHO ARE [...] BE BASED ON THE PRIMARY CLINICAL RECORDS. [facility] [employer] [facility]. provides no warranty or guarantee of the accuracy or completeness of information in this document.
== END 2024-06-26 20:01 | disposition home or self-care (01) ==
LOC: SLEEP 06-27 07:24
PROVIDERS: PCP Otolaryngology; Visit Provider Otolaryngology
DX: G47.33 Obstructive sleep apnea (adult) (pediatric) (principal)
CPT/HCPCS: 95810

== ENCOUNTER 2024-07-02 10:56 | Outpatient (OUT) | payer OTHER, SELFPAY ==
--- NOTE | 2024-07-02 | US_ITS ---
The [address] [address] Patient Name: ACACAI TIRADO MRN: [id number] date: 1960 Sex: F Assigned Patient Location: Current Patient Location: Accession/Order Number: [id number] Exam Date: 07/02/2024 11:10 Report Date: 07/03/2024 05:57 At the request of: MADHU ZEPEDA Procedure: US soft tissue head and neck EXAMINATION: US soft tissue head and neck HISTORY: ACUTE LYMPHADENITIS, LYMPHADENOPATHY COMPARISON: No relevant comparison available. FINDINGS: Rounded hypoechoic 0.8 x 0.6 x 0.7 cm area within versus adjacent the right submandibular gland (previously 1.9 x 1.8 x 1.5 cm). Adjacent to the submandibular glands is a slightly prominent, but otherwise benign-appearing 1.4 x 1.1 x 0.7 cm lymph node. Benign-appearing 1.2 cm lymph node within right parotid gland. US/US soft tissue head and neck IMPRESSION: 1. Interval decrease in size of the previously seen complex cyst versus abscess versus hypoechoic mass within versus adjacent the right submandibular gland. 2. Benign-appearing lymph node adjacent the right submandibular gland. 3. Benign-appearing lymph node within the right parotid gland. Electronically authenticated by: LARRY BRANDON Date: 07/03/2024 05:57
--- OUTSIDE RECORDS SUMMARY | 2024-07-02 11:18 | XMS_ITS | CCD ---
Author Organization [facility] Care Team Providers Care Hard Tile Setter Name Role Phone LUCIA, DR CEDRICK Ramírez Admitting Unavailable FURLONG, DR CEDRICK Ramírez Primary Care Unavailable FURLONG, DR CEDRICK Ramírez Consulting Unavailable FURLONG, DR CEDRICK Ramírez Attending Unavailable FURLONG, DR CEDRICK Ramírez Admitting Unavailable FURLONG, DR [...] Care Unavailable Furlong DOCedrick Primary Care Provider [phone] Cedrick Kraft MD Primary Care Provider CHRISTELLE [...] Morphine; Translations: [MORPHINE] Drug Allergy [address] [facility] (2 sources) Penicillins; Translations: [PENICILLINS] Drug allergy (disorder) [address] [facility] (8 sources) FLUoxetine; Translations: [FLUOXETINE] Drug Allergy 3 Abnormal Behavior, Dizziness [facility] Repository (7 sources) Morphine Drug Allergy 3 Shortness Of Breath, Rash [facility] (2 sources) Penicillins Propensity to adverse reactions to drug 3 Rash [facility] (5 sources) Penicillins Drug Intolerance 3 Rash [facility] Healthcare Medications Current Medications Medication Drug [...] 0.417 mg/ml oral solution (3 sources) Uncompetitive V-kbzipl-A-asparta te Receptor Antagonist, Sigma-1 Agonist Start: 05-24-2023 End: 05-16-2024 YW-Ecrsptkgxm-Rthh aminophen 15-6.25-325 MG/15ML liquid Take by mouth 05/24/2023 05/16/2024 Discontinued (Therapy completed) [id number] 200 actuat albuterol 0.09 mg/actuat metered dose [...] schedule pt for CT neck w at [facility], week of 05/28/25, creatinine prior to test BASIC METABOLIC PANLon 12-28 Anion gap [Moles/Vol] 11 mmol/L Normal 5-15 [facility] Comment on above: Performed By: #### B MP #### [facility] ([id number]) [address], [address] [place] [address] Calcium [Mass/Vol] 9.4 mg/dL Normal 8.5-10.5 [facility] Comment on above: Performed By: #### B MP #### [facility] ([id number]) [address], [address] [place] [address] Chloride [Moles/Vol] 98 mmol/L Normal 98-109 [facility] Comment on above: Performed By: #### B MP #### [facility] ([id number]) [address], [address] [place] [address] CO2 [Moles/Vol] 26 mmol/L Normal 22-32 [facility] Comment on above: Performed By: #### B MP #### [facility] ([id number]) [address], [address] [place] [address] Creatinine [Mass/Vol] 0.67 mg/dL Normal 0.40-1.00 [facility] Comment on above: Result Comment: METH OD TRACEABLE TO IDMS STANDARD Performed By: #### B MP #### [facility] ([id number]) [address], [address] [place] [address] eGFR (CKD-EPI) NON-RACE DEPENDENT >90 Normal >59 [facility] Comment on above: Result Comment: Reported eGFR is based on the CKD-EPI 1 equation that does not use a race coefficient. Performed By: #### B MP #### [facility] ([id number]) [address], [address] [place] [address] Glucose [Mass/Vol] 128 mg/dL High 65-99 [facility] Comment on above: Performed By: #### B MP #### [facility] ([id number]) [address], [address] [place] [address] Potassium [Moles/Vol] 4.4 mmol/L Normal 3.5-5.0 [facility] Comment on above: Performed By: #### B MP #### [facility] ([id number]) [address], [address] [place] [address] Sodium [Moles/Vol] 135 mmol/L Normal 134-146 [facility] Comment on above: Performed By: #### B MP #### [facility] ([id number]) [address] [place] [address] Urea nitrogen [Mass/Vol] 12 mg/dL Normal 5-27 [facility] Comment on above: Performed By: #### B MP #### [facility] ([id number]) [address] [place] [address] Covid-19 PCR (CVDTB)on SARS-CoV-2 (COVID-19) RNA BETO+probe Ql (Unsp spec) Not detected Normal NOT DETECTED [facility] Comment on above: Result Comment: This test is not yet approved or cleared by the [place] FDA. When there are no FDA-approved or cleared tests available, and other criteria are met, FDA can make tests available under an emergency access mechanism called an Emergency Use Authorization (EUA). The EUA for this test is supported by the Check of Health and Human Service's (HHS's) declaration [...] SARS-CoV-2. Performed By: #### C VDTBH #### [facility] [address] [place] [address] Dr. Anh Wright Covid-19 PCR (CVDTB)on 08-02 EUA Statement SEE BELOW Normal [facility] Comment on above: Result Comment: This test is not yet approved or cleared by the [place] FDA. When there are no FDA-approved or cleared tests available, and other criteria are met, FDA can make tests available under an emergency access mechanism called an Emergency Use Authorization (EUA). The EUA for this test is supported by the Check of Health and Human Service?s (HHS?s) declaration [...] SARS-CoV-2. Performed By: #### C VDTBH #### [facility] [address] [address] Dre Daley SARS-CoV-2 (COVID-19) RNA BETO+probe Ql (Unsp spec) Not detected Normal NOT DETECTED [facility] Comment on above: Result Comment: This test is not yet approved or cleared by the [place] FDA. When there are no FDA-approved or cleared tests available, and other criteria are met, FDA can make tests available under an emergency access mechanism called an Emergency Use Authorization (EUA). The EUA for this test is supported by the Check of Health and Human Service's (HHS's) declaration [...] used). Performed By: #### C VDTBH #### [facility] [address] [address] Dre Daley Vital Signs Date Time Vital Sign Value Performing Clinician Facility 06-12-2024 09:04-0500 Body height 162.6 cm Christelle Wright MD Work Phone: [facility] 06-12-2024 09:04-0500 Body mass index (BMI) [Ratio] 41.2 kg/m2 Christelle Wright MD Work Phone: [facility] 06-12-2024 09:04-0500 Body weight 108.86 kg Christelle Wright MD Work Phone: [facility] 06-12-2024 09:04-0500 Diastolic blood pressure 77 mm[Hg] Christelle Wright MD Work Phone: [facility] 06-12-2024 09:04-0500 Systolic blood pressure 141 mm[Hg] Christelle Wright MD Work Phone: [facility] 05-16-2024 09:49-0400 Body height 162.6 cm Christelle Wright MD Work Phone: [facility] 05-16-2024 09:49-0400 Body mass index (BMI) [Ratio] 41.2 kg/m2 Christelle Wright MD Work Phone: [facility] 05-16-2024 09:49-0400 Body weight 108.86 kg Christelle Wright MD Work Phone: [facility] 05-16-2024 09:49-0400 Diastolic blood pressure 90 mm[Hg] Christelle Wright MD Work Phone: [facility] 05-16-2024 09:49-0400 Systolic blood pressure 152 mm[Hg] Christelle Wright MD Work Phone: [facility] 05-08-2024 13:59-0400 Body height 162.6 cm Cedrick Triage Work Phone: [facility] 05-08-2024 13:59-0400 Body mass index (BMI) [Ratio] 42.16 kg/m2 Cedrick [employer] Work Phone: [facility] 05-08-2024 13:59-0400 Body temperature 98.2 [degF] Cedrick Kraft DO Work Phone: [facility] 05-08-2024 13:59-0400 Body weight 111.4 kg Cedrick Kraft DO Work Phone: [facility] [facility] 05-08-2024 13:59-0400 Diastolic blood pressure 82 mm[Hg] Cedrick [employer] DO Work Phone: [facility] [facility] 05-08-2024 13:59-0400 Heart rate 92 /min [facility]edrick [facility] Work Phone: [employer] 05-08-2024 13:59-0400 SaO2% (BldA) [Mass fraction] 94 % [facility]edrick [facility] Work Phone: [employer] 05-08-2024 13:59-0400 Systolic blood pressure 164 mm[Hg] Cedrick Kraft [employer] Work Phone: [employer] Encounters Encounter Date Encounter Type Care Provider [...] Available Start: 05-11-2024 End: 05-11-2024 Orders Only [facility] DO Work Phone: [facility] Comment on above: Neck mass (Primary D x); Lymphadenitis, acute Start: 05-08-2024 End: 05-08-2024 Office outpatient visit 25 minutes [facility]edrick Lucia [facility] Comment on above: Neck mass (Primary D x); Lymphadenitis, acute Start: 05-08-2024 End: 05-08-2024 ambulatory [facility] Start: 03-30-2024 End: 03-30-2024 ambulatory [facility] Start: 03-30-2024 Encounter for genera l adult medical examination without abnormal findings [facility] Start: 12-30-2023 End: 12-30-2023 ambulatory [facility] Start: 12-29-2023 End: 12-29-2023 ambulatory [facility] Start: 08-06-2021 End: 08-06-[address] CEDRICK KRAFT Facility:[facility] Start: 08-28-2020 End: 08-28-[address] CEDRICK KRAFT Facility:[facility] Procedures Date Procedure Procedure Detail Performing Clinician Start: 05-08-2024 Adult depression screening assessment [facility] DO Work Phone: Start: 12-29-2023 Follow-up visit Follow-up CEDRICK KRAFT Plan of Treatment Date Care Activity Detail Author Start: 05-08-2025 Adult BMI Screening Adult BMI Screen ing [facility] Start: 05-08-2025 Depression Screening Depression Scre ening [facility] Start: 05-08-2025 Fall Risk Screening Fall Risk Screen ing [facility] Start: 05-08-2025 Tobacco Screening Tobacco Screening [facility] Start: 03-30-2025 Adult BMI Follow Up Plan Adult BMI Follow Up Plan [facility] Start: 03-30-2025 Medicare Annual Well ness Visit Medicare Annual Wellness Visit [facility] Start: 07-10-2024 End: 07-10-2024 Patient encounter procedure 07/10/2024 9:10 AM EST Office Visit [facility] [address] [place] [address] Christelle Wright MD [address] [place] [address] [facility] Start: 06-12-2024 End: 06-12-2025 US Head and neck soft tissue US head neck soft tissue Imaging Routine Acute lymphadenitis Expected: 06/12/2024 (Approximate), Expires: 06/12/2025 [facility] Work Phone: Comment on above: Expected: 06/12/2024 (Approximate), Expires: 06/12/2025 Start: 06-12-2024 End: 06-12-2024 Patient encounter procedure 06/12/2024 9:10 AM EST Office Visit [facility] [address] [place] [address] Christelle Wright MD [address] [place] [address] [facility] Start: 05-16-2024 End: 05-16-2025 [...] Visit [facility] [address] [facility] [address] [place] [id number] Christelle Wright MD [address] [facility] [address] [place], [place] [id number] Arrived [facility] Comment on above: Arrived Start: 05-08-2024 End: 05-08-2025 US Head and neck soft tissue Ultrasound soft tissue head neck Imaging Routine Neck mass Expected: 05/08/2024, Expires: 05/08/2025 [facility] Work Phone: Comment on above: Expected: 05/08/2024 , Expires: 05/08/2025 Start: 04-01-2024 Influenza vaccination [facility] Start: 2008 Administration of varicella zoster vaccine Zoster (Shingles) Vaccine (1 of 2) [employer] Start: 2003 Screening for malign ant neoplasm of colon Colon Cancer Screening 3 Year Cologuard [employer] Start: 1998 Screening for malign ant neoplasm of breast [facility] Start: 1977 DTaP,Tdap and Td Vaccines (1 - Tdap) DTaP,Tdap and Td Vaccines (1 - Tdap) [facility] Payers Date Payer Category Payer Medicare [employer] [id number] 2023-Present [phone] [address] [place] [id number] 2023 Medicare (Managed Care) [facility] [id number] 2023 Medicare [id number] 2019 Unknown [id number] 1959 Self-pay [id number] 1958 Unknown [id number] [id number] 1958 Unknown [id number] [id number] 1958 Unknown [id number] [id number] 1958 Unknown [id number] [id number] 1958 Unknown [id number] [id number] 1958 Unknown [id number] [id number] 1958 Unknown [id number] [id number] [id number] 1958 Unknown [id number] [id number] 1958 Unknown [id number] [id number] Social History Date Type Detail Facility Start: 08-23-2022 End: 05-16-2024 Tobacco smoking status NHIS Never smoked tobacco [facility] Start: 08-23-2022 End: 05-16-2024 Tobacco use and exposure Smokeless tobacco non-user [facility] Start: 05-08-2024 Alcoholic beverage intake Ex-drinker (finding) [facility] Start: 03-30-2024 End: 06-12-2024 History of Social function [facility] Start: 03-30-2024 End: 06-12-2024 [facility] [employer] [facility] Has the Easy [employer], or [employer] threatened to shut off services in your home in past 12Mo No [facility] Are you now , , , , never or living with a partner? [facility] How often to you hav e a drink containing alcohol? Never [facility] How many standard drinks containing alcohol do you have on a typical day? Patient does not drink [facility] Do you feel stress - tense, restless, nervous, or anxious, or unable to sleep at night because your mind is troubled all the time - these days [OSQ] Only a little [facility] Start: 1960 Sex assigned at Not on file P [facility] consumption unknown [facility] Start: 05-16-2024 End: 06-12-2024 Alcoholic beverage intake Lifetime non-drinker (finding) [facility] Clinical Notes 05-08-2024 to 06-12-2024 [...] Hypertension (CMS/HCC) 05/15/2024 Hyponatremia 12/29/2023 Obesity, morbid (CMS/[facility]) 12/29/2023 Osteoarthritis of right ankle 03/30/2024 Vitamin [...] study and F/U documented in this encounter [facility] 06-12-2024 Miscellaneous Notes Addended by: ZENAIDA GIRON on: 06/12/2024 10:00 AM Modules accepted: Orders documented in this encounter [facility] 06-12-2024 Note Addended by: ZENAIDA GIRON on: 06/12/2024 10:00 AM Modules accepted: Orders [facility] Work Phone: 06-12-2024 Note Addended by: ZENAIDA GIRON on: 06/12/2024 10:00 AM Modules accepted: Orders [facility] Work Phone: 05-16-2024 History of Presen [...] Ambulatory Problems Diagnosis Date Noted Acquired hypothyroidism ([facility]) 12/29/2023 Flat foot (pes planus) (acquired), left foot 05/15/2024 Acquired pes planus of right foot 05/15/2024 Anxiety 05/15/2024 Asthma ([facility]) 05/15/2024 Gastroesophageal reflux disease 05/15/2024 Hypertension ([facility]) 05/15/2024 Hyponatremia 12/29/2023 Obesity, morbid ([facility]) 12/29/2023 Osteoarthritis of right ankle 03/30/2024 Vitamin D deficiency 05/15/2024 Resolved Ambulatory Problems Diagnosis Date Noted No Resolved Ambulatory Problems Past Medical History: Diagnosis Date High blood pressure ([facility]) Neck mass Past Surgical History: Procedure Laterality [...] [DISCONTINUED] clindamycin (Cleocin) 300 MG capsule [DISCONTINUED] YQ-Ljcvypsfot-Lruurcversebp 15-6.25-325 MG/15ML liquid Take by mouth [DISCONTINUED] [...] a CT neck. documented in this encounter [facility] 05-08-2024 History of Presen t illness [...] ear normal. Nose: Nose normal. Mouth/Throat: Lips: Severy. Mouth: Mucous membranes are moist. Dentition: Normal [...] for 5 days. documented in this encounter [facility] Evaluation note Diagnosis Neck mass- Primary Swelling, mass, or lump in head and neck Lymphadenitis, acute Acute lymphadenitis [facility] Neck mass- Primary Swelling, mass, or lump in head and neck Lymphadenitis, acute Acute lymphadenitis [facility] Diagnosis Mass of right side of neck- Primary documented in this encounter [facility] HealthcareEvaluation note* Diagnosis Acute lymphadenitis- Primary Chronic rhinitis GUSTAVO (obstructive sleep apnea) Obstructive sleep apnea (adult) (pediatric) documented in this encounter [facility] HealthcareInstructionsNot on filedocumented in this encounterPro[facility] SystemInstructionsNot on filedocumented in this encounterProKettering [facility] SystemReason for referral (narrative)* Consultation (Routine) - Pending Review Specialty Diagnoses / Procedures Referred By Lisa nunez Referred To Contact Otolaryngology Diagnoses Neck mass Lymphadenitis, acute Cedrick Kraft DO [address] [facility], [place] [address] Christelle Wright MD [address] [place] [address] Referral ID Status Reason Start Date Expiration Date Visits Requested Visits Authorized [id number] Pending Review Specialty Services Required 4 05/11/2025 1 1 [facility] Summary Purpose Family History No Family History Records FoundNo Family History Records FoundNo Family History Records FoundNo Family History Records Found Advance Directives No Advanced Directives Records FoundNo Advanced Directives Records FoundNo Advanced Directives Records FoundNo Advanced Directives Records Found Additional Source Comments INFORMATION SOURCE (unrecogn ized section and content) DATE CREATED AUTHOR 08/13/2021 [facility] DATE CREATED AUTHOR AUTHOR'S ORGANIZ ATION 12/30/2023 [facility] DATE CREATED AUTHOR AUTHOR'S ORGANIZ ATION 05/10/2024 [facility] DATE CREATED AUTHOR AUTHOR'S ORGANIZ ATION 06/13/2024 [facility] d[facility] Specialists EPIC Reason for [...] MD [address] [place] [address] Phone: tel: fax: Christelle Wright MD [address] [facility] [address] [place] [address] Phone: tel: fax: Referral ID Status Reason Start Date Expiration Date V isits Requested Visits Authorized [id number] Pending Review 05/11/2024 05/11/2025 1 1 Reason Comments Neck Mass Follow up [facility] (unrecognized sec tion and content) Hard Tile Setter Relationship Specialty Start Date End Date Cedrick Kraft DO [address] [place] [address] PCP - [facility] 12/27/23 Hard Tile Setter Relationship Specialty Start Date End Date Cedrick Kraft DO [address] [place] [address] PCP - [facility] 12/27/23 Hard Tile Setter Relationship Specialty Start Date End Date Cedrick Kraft MD [address] [place] [address] PCP [facility] 05/14/24 Hard Tile Setter Relationship Specialty Start Date End Date Cedrick Kraft MD [address] [place] [address] [facility] 05/14/24 Hard Tile Setter Relationship Specialty Start Date End Date Cedrick Kraft MD [address] [place] [address] PCP [facility] 05/14/24 Hard Tile Setter Relationship Specialty Start Date End Date Cedrick Kraft MD [address] [place] [address] [facility] 05/14/24 FOR RECORDS PERTAINING TO PATIENTS WHO [...] BE BASED ON THE PRIMARY CLINICAL RECORDS. [facility] [employer] [facility]. provides no warranty or guarantee of the accuracy or completeness of information in this document.
== END 2024-07-02 10:57 | disposition home or self-care (01) ==
LOC: US 10:57
PROVIDERS: PCP Family Medicine; Visit Provider Otolaryngology
DX: L04.9 Acute lymphadenitis, unspecified (principal)
CPT/HCPCS: 76536

== ENCOUNTER 2024-07-11 08:50 | Emergency (ER) | payer OTHER, SELFPAY ==
[2024-07-11 08:53] VITALS: BP 179/91; PULSE 89; TEMP 37.6; O2SAT 98; BMI 42.9
--- OUTSIDE RECORDS SUMMARY | 2024-07-11 09:14 | XMS_ITS | CCD ---
Author Organization [facility] Care Team Providers Care Business Continuity Global Director Name Role Phone LUCIA, DR CEDRICK Ramírez [...] Morphine; Translations: [MORPHINE] Drug Allergy 6 The [facility] (2 sources) Penicillins; Translations: [PENICILLINS] Drug allergy (disorder) 6 [facility] (8 sources) FLUoxetine; Translations: [FLUOXETINE] Drug Allergy 3 Abnormal Behavior, Dizziness [facility] (7 sources) Morphine Drug Allergy 3 Shortness Of Breath, Rash [facility] (2 sources) Penicillins Propensity to adverse reactions to drug 3 Rash [facility] (5 sources) Penicillins Drug Intolerance [address] [facility] Healthcare Medications Current Medications Medication Drug [...] 0.417 mg/ml oral solution (3 sources) Uncompetitive M-tojnis-E-asparta te Receptor Antagonist, Sigma-1 Agonist Start: 05-24-2023 End: 05-16-2024 TM-Mulbizmmik-Hute aminophen 15-6.25-325 MG/15ML liquid Take by mouth 05/24/2023 05/16/2024 Discontinued (Therapy completed) [id number] 200 actuat albuterol 0.09 mg/actuat metered dose [...] schedule pt for CT neck w at [facility], week of 05/28/25, creatinine prior to test BASIC METABOLIC PANLon 12-28 Anion gap [Moles/Vol] 11 mmol/L Normal 5-15 [facility] Comment on above: Performed By: #### B MP #### [facility] ([id number]) [address], [address] [place] [address] Calcium [Mass/Vol] 9.4 mg/dL Normal 8.5-10.5 [facility] Comment on above: Performed By: #### B MP #### [facility] ([id number]) [address], [address] [place] [address] Chloride [Moles/Vol] 98 mmol/L Normal 98-109 [facility] Comment on above: Performed By: #### B MP #### [facility] ([id number]) [address], [address] [place] [address] CO2 [Moles/Vol] 26 mmol/L Normal 22-32 [facility] Comment on above: Performed By: #### B MP #### [facility] ([id number]) [address], [address] [place] [address] Creatinine [Mass/Vol] 0.67 mg/dL Normal 0.40-1.00 [facility] Comment on above: Result Comment: METH OD TRACEABLE TO IDMS STANDARD Performed By: #### B MP #### [facility] ([id number]) [address], [address] [place] [address] eGFR (CKD-EPI) NON-RACE DEPENDENT >90 Normal >59 [facility] Comment on above: Result Comment: Reported eGFR is based on the CKD-EPI 1 equation that does not use a race coefficient. Performed By: #### B MP #### [facility] ([id number]) [address], [address] [place] [address] Glucose [Mass/Vol] 128 mg/dL High 65-99 [facility] Comment on above: Performed By: #### B MP #### [facility] ([id number]) [address], [address] [place] [address] Potassium [Moles/Vol] 4.4 mmol/L Normal 3.5-5.0 [facility] Comment on above: Performed By: #### B MP #### [facility] ([id number]) [address], [address] [place] [address] Sodium [Moles/Vol] 135 mmol/L Normal 134-146 [facility] Comment on above: Performed By: #### B MP #### [facility] ([id number]) [address] [place] [address] Urea nitrogen [Mass/Vol] 12 mg/dL Normal 5-27 [facility] Comment on above: Performed By: #### B MP #### [facility] ([id number]) [address], [address] [place] [address] Covid-19 PCR (CVDTB)on SARS-CoV-2 (COVID-19) RNA BETO+probe Ql (Unsp spec) Not detected Normal NOT DETECTED [facility] Comment on above: Result Comment: This test is not yet approved or cleared by the [place] FDA. When there are no FDA-approved or cleared tests available, and other criteria are met, FDA can make tests available under an emergency access mechanism called an Emergency Use Authorization (EUA). The EUA for this test is supported by the R[employer] Driver of Health and Human Service's (HHS's) declaration [...] SARS-CoV-2. Performed By: #### C VDTBH #### [facility] [address] [place] [address] Dr. Anh Wright Covid-19 PCR (CVDTB)on 08-02 EUA Statement SEE BELOW Normal The [facility] Comment on above: Result Comment: This test is not yet approved or cleared by the [place] FDA. When there are no FDA-approved or cleared tests available, and other criteria are met, FDA can make tests available under an emergency access mechanism called an Emergency Use Authorization (EUA). The EUA for this test is supported by the Rear Load Truck Driver of Health and Human Service?s (HHS?s) declaration [...] SARS-CoV-2. Performed By: #### C VDTBH #### [facility] [address] [address] Dre Daley SARS-CoV-2 (COVID-19) RNA BETO+probe Ql (Unsp spec) Not detected Normal NOT DETECTED [facility] Comment on above: Result Comment: This test is not yet approved or cleared by the [place] FDA. When there are no FDA-approved or cleared tests available, and other criteria are met, FDA can make tests available under an emergency access mechanism called an Emergency Use Authorization (EUA). The EUA for this test is supported by the Rear Load Truck Driver of Health and Human Service's (HHS's) declaration [...] used). Performed By: #### C VDTBH #### [facility] [address] [address] Dre Daley Vital Signs Date Time Vital Sign Value Performing Clinician Facility 06-12-2024 09:04-0500 Body height 162.6 cm Christelle Wright MD Work Phone: [facility] 06-12-2024 09:04-0500 Body mass index (BMI) [Ratio] 41.2 kg/m2 Christelle Wright MD Work Phone: [facility] 06-12-2024 09:04-0500 Body weight 108.86 kg Christelle Wright MD Work Phone: [facility] 06-12-2024 09:04-0500 Diastolic blood pressure 77 mm[Hg] Christelle Wright MD Work Phone: [facility] 06-12-2024 09:04-0500 Systolic blood pressure 141 mm[Hg] Christelle Wright MD Work Phone: [facility] 05-16-2024 09:49-0400 Body height 162.6 cm Christelle Wright MD Work Phone: [facility] 05-16-2024 09:49-0400 Body mass index (BMI) [Ratio] 41.2 kg/m2 Christelle Wright MD Work Phone: [facility] 05-16-2024 09:49-0400 Body weight 108.86 kg Christelle Wright MD Work Phone: [facility] 05-16-2024 09:49-0400 Diastolic blood pressure 90 mm[Hg] Christelle Wright MD Work Phone: [facility] 05-16-2024 09:49-0400 Systolic blood pressure 152 mm[Hg] Christelle Wright MD Work Phone: [facility] 05-08-2024 13:59-0400 Body height 162.6 cm Cedrick [employer] Work Phone: [facility] 05-08-2024 13:59-0400 Body mass index (BMI) [Ratio] 42.16 kg/m2 Cedrick [employer] Work Phone: [employer] 05-08-2024 13:59-0400 Body temperature 98.2 [degF] Cedrick Kraft DO Work Phone: [employer] 05-08-2024 13:59-0400 Body weight 111.4 kg Cedrick Kraft DO Work Phone: [employer] 05-08-2024 13:59-0400 Diastolic blood pressure 82 mm[Hg] Cedrick [employer] DO Work Phone: [employer] 05-08-2024 13:59-0400 Heart rate 92 /min Cedrick [employer] Work Phone: [employer] 05-08-2024 13:59-0400 SaO2% (BldA) [Mass fraction] 94 % Cedrick [employer] Work Phone: [employer] 05-08-2024 13:59-0400 Systolic blood pressure 164 mm[Hg] Cedrick [employer] Work Phone: [employer] Encounters Encounter Date Encounter Type Care Provider [...] Available Start: 05-11-2024 End: 05-11-2024 Orders Only [facility] DO Work Phone: [facility] Comment on above: Neck mass (Primary D x); Lymphadenitis, acute Start: 05-08-2024 End: 05-08-2024 Office outpatient visit 25 minutes Cedrick Lucia DO Work Phone: [facility] Comment on above: Neck mass (Primary D x); Lymphadenitis, acute Start: 05-08-2024 End: 05-08-[address] [facility] Start: 03-30-2024 End: 03-30-[address] [facility] Start: 03-30-2024 Encounter for genera l adult medical examination without abnormal findings [facility] Start: 12-30-2023 End: 12-30-2023 ambulatory [facility] Start: 12-29-2023 End: 12-29-[address] [facility] Start: 08-06-2021 End: 08-06-[address] CEDRICK KRAFT Facility:[facility] Start: 08-28-2020 End: 08-28-[address] CEDRICK KRAFT Facility:[facility] Procedures Date Procedure Procedure Detail Performing Clinician Start: 05-08-2024 Adult depression screening assessment [facility] DO Work Phone: Start: 12-29-2023 Follow-up visit Follow-up CEDRICK KRAFT Plan of Treatment Date Care Activity Detail Author Start: 05-08-2025 Adult BMI Screening Adult BMI Screen ing [facility] Start: 05-08-2025 Depression Screening Depression Scre ening [facility] Start: 05-08-2025 Fall Risk Screening Fall Risk Screen ing [facility] Start: 05-08-2025 Tobacco Screening Tobacco Screening [facility] Start: 03-30-2025 Adult BMI Follow Up Plan Adult BMI Follow Up Plan [facility] Start: 03-30-2025 Medicare Annual Well ness Visit Medicare Annual Wellness Visit [facility] Start: 07-10-2024 End: 07-10-2024 Patient encounter procedure 07/10/2024 9:10 AM EST Office Visit [facility] [address] [place] [address] Christelle Wright MD [address] [place] [address] [facility] Start: 06-12-2024 End: 06-12-2025 US Head and neck soft tissue US head neck soft tissue Imaging Routine Acute lymphadenitis Expected: 06/12/2024 (Approximate), Expires: 06/12/2025 [facility] Work Phone: Comment on above: Expected: 06/12/2024 (Approximate), Expires: 06/12/2025 Start: 06-12-2024 End: 06-12-2024 Patient encounter procedure 06/12/2024 9:10 AM EST Office Visit [facility] [address] [place] [address] Christelle Wright MD [address] [place] [address] [facility] Start: 05-16-2024 End: 05-16-2025 [...] [facility] [address] [facility] [address] [place] [id number] Christelle Wright MD [address] [facility] [address] [place], [place] [id number] Arrived [facility] Comment on above: Arrived Start: 05-08-2024 End: 05-08-2025 US Head and neck soft tissue Ultrasound soft tissue head neck Imaging Routine Neck mass Expected: 05/08/2024, Expires: 05/08/2025 [facility] Work Phone: Comment on above: Expected: 05/08/2024 , Expires: 05/08/2025 Start: 04-01-2024 Influenza vaccination [facility] Start: 2008 Administration of varicella zoster vaccine Zoster (Shingles) Vaccine (1 of 2) [employer] Start: 2003 Screening for malign ant neoplasm of colon Colon Cancer Screening 3 Year Cologuard [employer] Start: 1998 Screening for malign ant neoplasm of breast [facility]ammogram [facility] Start: 1977 DTaP,Tdap and Td Vaccines (1 - Tdap) DTaP,Tdap and Td Vaccines (1 - Tdap) [facility] Payers Date Payer Category Payer Medicare [employer]IC[employer] ADVANTAGE [id number] 2023-Present [phone] [address] [place] [address] [id number] 2023 Medicare (Managed Care) [facility] [id number] 2023 Medicare [id number] 2019 Unknown [id number] 1959 Self-pay [id number] 1960 Unknown [id number] [id number] 1958 Unknown [id number]. [id number] 1958 Unknown [id number]. 2.1286 1958 Unknown [id number]. 2.1286 1958 Unknown [id number] 2.1286 1958 Unknown [id number]. 2.1286 1958 Unknown [id number] [id number]. 2.1259 1958 Unknown [id number]. 2.1259 1958 Unknown [id number] [id number] Social History Date Type Detail Facility Start: 08-23-2022 End: 05-16-2024 Tobacco smoking status NHIS Never smoked tobacco [facility] Start: 08-23-2022 End: 05-16-2024 Tobacco use and exposure Smokeless tobacco non-user [facility] Start: 05-08-2024 Alcoholic beverage intake Ex-drinker (finding) [facility] Start: 03-30-2024 End: 06-12-2024 History of Social function [facility] Start: 03-30-2024 End: 06-12-2024 [facility] [employer] [facility] Has the [employer], or [employer] threatened to shut off services in your home in past 12Mo No [facility] Are you now , , , , never or living with a partner? [facility] How often to you hav e a drink containing alcohol? Never [facility] How many standard drinks containing alcohol do you have on a typical day? Patient does not drink [facility] Do you feel stress - tense, restless, nervous, or anxious, or unable to sleep at night because your mind is troubled all the time - these days [OSQ] Only a little [facility] Start: 1960 Sex assigned at Not on file P [facility] smoking consumption unknown [facility] Start: 05-16-2024 End: 06-12-2024 Alcoholic beverage intake Lifetime non-drinker (finding) [facility] Clinical Notes 05-08-2024 to 06-12-2024 [...] Hypertension (CMS/HCC) 05/15/2024 Hyponatremia 12/29/2023 Obesity, morbid (CMS/[facility]) 12/29/2023 Osteoarthritis of right ankle 03/30/2024 Vitamin [...] study and F/U documented in this encounter [facility] 06-12-2024 Miscellaneous Notes Addended by: ZENAIDA GIRON on: 06/12/2024 10:00 AM Modules accepted: Orders documented in this encounter [facility] 06-12-2024 Note Addended by: ZENAIDA GIRON on: 06/12/2024 10:00 AM Modules accepted: Orders [facility] Work Phone: 06-12-2024 Note Addended by: ZENAIDA GIRON on: 06/12/2024 10:00 AM Modules accepted: Orders [facility] Work Phone: 05-16-2024 History of Presen t [...] Ambulatory Problems Diagnosis Date Noted Acquired hypothyroidism ([facility]) 12/29/2023 Flat foot (pes planus) (acquired), left foot 05/15/2024 Acquired pes planus of right foot 05/15/2024 Anxiety 05/15/2024 Asthma ([facility]) 05/15/2024 Gastroesophageal reflux disease 05/15/2024 Hypertension ([facility]) 05/15/2024 Hyponatremia 12/29/2023 Obesity, morbid ([facility]) 12/29/2023 Osteoarthritis of right ankle 03/30/2024 Vitamin D deficiency 05/15/2024 Resolved Ambulatory Problems Diagnosis Date Noted No Resolved Ambulatory Problems Past Medical History: Diagnosis Date High blood pressure ([facility]) Neck mass Past Surgical History: Procedure Laterality [...] [DISCONTINUED] clindamycin (Cleocin) 300 MG capsule [DISCONTINUED] OF-Qszplxnuva-Vjnfbiftofvzw 15-6.25-325 MG/15ML liquid Take by mouth [DISCONTINUED] [...] a CT neck. documented in this encounter [facility] 05-08-2024 History of Presen t illness Narrative [...] ear normal. Nose: Nose normal. Mouth/Throat: Lips: Welty. Mouth: Mucous membranes are moist. Dentition: Normal [...] for 5 days. documented in this encounter [facility] Evaluation note Diagnosis Neck mass- Primary Swelling, mass, or lump in head and neck Lymphadenitis, acute Acute lymphadenitis documented in this encounter [facility]* Diagnosis Neck mass- Primary Swelling, mass, or lump in head and neck Lymphadenitis, acute Acute lymphadenitis documented in [facility]* Diagnosis Mass of right side of neck- Primary documented in this encounter [facility] HealthcareEvaluation note* Diagnosis Acute lymphadenitis- Primary Chronic rhinitis GUSTAVO (obstructive sleep apnea) Obstructive sleep apnea (adult) (pediatric) documented in this encounter [facility] HealthcareInstructionsNot on filedocumented in this encounterProMercy [facility] SystemInstructionsNot on filedocumented in this encounterProMercy Health St[facility] SystemReason for referral (narrative)* Consultation (Routine) - Pending Review Specialty Diagnoses / Procedures Referred By Lisa nunez Referred To Contact Otolaryngology Diagnoses Neck mass Lymphadenitis, acute Cedrick Kraft DO [address] [facility], [place] [address] Christelle Wright MD [address] [place] [address] Referral ID Status Reason Start Date Expiration Date Visits Requested Visits Authorized [id number] Pending Review Specialty Services Required 4 05/11/2025 1 1 [facility] Summary Purpose Family History No Family History Records FoundNo Family History Records FoundNo Family History Records FoundNo Family History Records Found Advance Directives No Advanced Directives Records FoundNo Advanced Directives Records FoundNo Advanced Directives Records FoundNo Advanced Directives Records Found Additional Source Comments INFORMATION SOURCE (unrecogn ized section and content) DATE CREATED AUTHOR 08/13/2021 [facility] DATE CREATED AUTHOR AUTHOR'S ORGANIZ ATION 12/30/2023 [facility] DATE CREATED AUTHOR AUTHOR'S ORGANIZ ATION 05/10/2024 [facility] DATE CREATED AUTHOR AUTHOR'S ORGANIZ ATION 06/13/2024 [facility] EPIC Reason for Visit (unrecogniz [...] MD [address] [place] [address] Phone: tel: fax: Christelle Wright MD [address] [facility] [address] [place] [address] Phone: tel: fax: Referral ID Status Reason Start Date Expiration Date V isits Requested Visits Authorized [id number] Pending Review 05/11/2024 05/11/2025 1 1 Reason Comments Neck Mass Follow up [facility] (unrecognized sec tion and content) Business Continuity Global Director Relationship Specialty Start Date End Date Cedrick Kraft DO [address], [place] [address] PCP - General Family [facility] 12/27/23 Business Continuity Global Director Relationship Specialty Start Date End Date Cedrick Kraft DO [address], [place] [address] PCP - [facility] 12/27/23 Business Continuity Global Director Relationship Specialty Start Date End Date Cedrick Kraft MD [address] [place] [address] PCP [facility] 05/14/24 Business Continuity Global Director Relationship Specialty Start Date End Date Cedrick Kraft MD [address], [place] [address] [facility] 05/14/24 Business Continuity Global Director Relationship Specialty Start Date End Date Cedrick Kraft MD [address] [place] [address] PCP [facility] 05/14/24 Business Continuity Global Director Relationship Specialty Start Date End Date Cedrick Kraft MD [address] [place] [address] [facility] 05/14/24 FOR RECORDS PERTAINING TO [...] BE BASED ON THE PRIMARY CLINICAL RECORDS. [facility] [employer] [facility]. provides no warranty or guarantee of the accuracy or completeness of information in this document.
[2024-07-11 09:24] LABS: Internal Control Within Normal Limits; SARS-CoV-2 Ag POSITIVE (NEGATIVE)
[2024-07-11 09:26] LABS: Influenza Virus A Antigen Negative; Influenza Virus B Antigen Negative; Internal Control Within Normal Limits
--- NOTE | 2024-07-11 09:45 | XR_ITS ---
The [address] [address] Patient Name: ACACIA TIRADO MRN: [id number] date: 1960 Sex: F Assigned Patient Location: ER Current Patient Location: ER Accession/Order Number: [id number] Exam Date: 07/11/2024 10:05 Report Date: 07/11/2024 10:22 At the request of: MATTHEW ROBERTS Procedure: XR chest 1V EXAMINATION: XR chest 1V HISTORY: cough/covid COMPARISON: 12/24/2023 TECHNIQUE: AP portable erect FINDINGS: LUNGS: No significant pulmonary parenchymal abnormalities. VASCULATURE: No increased pulmonary vasculature. PLEURA: No pneumothorax, effusion, or pleural thickening. CARDIAC: No cardiomegaly or cardiac silhouette abnormality. MEDIASTINUM: No visible mass or adenopathy. BONES: No fracture or visible bone lesion. OTHER: Negative. XR/XR chest 1V IMPRESSION: No acute radiographic abnormality Electronically authenticated by: VIOLETTE SWEET Date: 07/11/2024 10:22
--- NOTE | 2024-07-11 09:46 | ED_ITS ---
HPI - URI/Sore Throat General Chief Complaint: Upper Respiratory Infection Stated Complaint: URTI COMPLAINTS Time Seen by Provider: 07/11/24 08:58 Source: patient Limitations: no limitations History of Present Illness HPI Narrative: Patient presents ED complaining of upper respiratory symptoms. Patient states she was exposed to COVID recently and then started to have a scratchy throat over the weekend and coming down with a cough and fatigue. Her also had sinus symptoms and his father was positive for COVID recently as well. Patient had a cough, no respiratory distress no shortness of breath. Patient's also been dealing with some swelling in the right side of the neck. She was being worked up for a swollen lymph node or brachial cleft cyst, they are still doing testing and she is being closely followed by an ENT. She said with her being sick recently it seems a little more swollen than it had been. She has been on antibiotics for the swelling in her neck. No stridor no shortness of breath no difficulty swallowing Related Data Home Medications ?Medication ?Instructions ?Recorded ?Confirmed HCTZ 25 mg PO DAILY 12/24/23 12/24/23 levothyroxine 112 mcg capsule 112 mcg PO DAILY 12/24/23 07/11/24 lisinopril 20 mg tablet 20 mg PO DAILY 12/24/23 07/11/24 omeprazole 20 mg capsule,delayed 20 mg PO DAILY 12/24/23 07/11/24 release Previous Rx's ?Medication ?Instructions ?Recorded albuterol sulfate 90 mcg/actuation 1 inh inhalation Q4H PRN Shortness 12/26/23 aerosol inhaler Of Breath Or Wheezing 30 days #1 g potassium chloride 10 mEq 20 meq (2 x 10 mEq) PO BID 7 days 12/26/23 tablet,extended release(part/cryst) #28 tabs Allergies Allergy/AdvReac Type Severity Reaction Status Date / Time acetaminophen (From Percocet) Allergy Mild Rash Verified 07/11/24 08:59 morphine Allergy Mild Rash Verified 07/11/24 08:59 oxycodone (From Percocet) Allergy Mild Rash Verified 07/11/24 08:59 Penicillins Allergy Mild Rash Verified 07/11/24 08:59 fluoxetine (From Prozac) AdvReac Severe Anxiety Verified 07/11/24 08:59 Review of Systems ROS Status of ROS 10 or more systems reviewed and unremark able except as noted in history and below [facility] Medical History (Updated 07/11/24 @ 10:31 by Keisha Albarado DO) Hypothyroidism (acquired) ?E03.9 - Hypothyroidism, unspecified (ICD-10) Hypokalemia ?E87.6 - Hypokalemia (ICD-10) Depression ?F32.A - Depression, unspecified (ICD-10) Chronic GERD ?K21.9 - Gastro-esophageal reflux disease without esophagitis (ICD-10) Hypertension ?I10 - Essential (primary) hypertension (ICD-10) Allergies ?T78.40XA - Allergy, unspecified, initial encounter (ICD-10) Surgical History History of cholecystectomy ?Z90.49 - Acquired absence of other specified parts of digestive tract (ICD- 10) Family History Mother Family history of COPD (chronic obstructive pulmonary disease) Family history of stroke Sister Family history of COPD (chronic obstructive pulmonary disease) Family history of diabetes mellitus Daughter Family history of cancer Father Family history of myocardial infarction Other Family history of hypertension Social History Within the past year, how often did you have a drink containing alcohol: never Score interpretation: A score less than 3 is consistent with normal alcohol consumption. Smoking status: Never smoker Non-prescribed substance use: denies use Previous occupational history: retired Highest level of school completed/degree received: Associate degree: occupational, technical, vocational program Are you now , , , , never or living with a partner: In a typical week, how many times do you talk on the telephone with family, friends, or neighbors: 3 or more times per week How often do you get together with friends or relatives: 3 or more times per week Little interest or pleasure in doing things: not at all Feeling down, depressed, or hopeless: not at all Feel stressed/tense/nervous/anxious/difficulty sleeping: not at all Exam Narrative Exam Narrative: Time Seen: [] Vital Signs: [Per nurse's notes.] General: [Alert] Skin: [Warm, dry, no rash.] Head: [Normocephalic, atraumatic.] Neck: [Supple, trachea midline.] Eye: [Pupils are equal, round and reactive to light, extraocular movements are intact, normal conjunctiva.] Ears, nose, mouth and throat: oral mucosa moist. Cardiovascular: [Regular rate and rhythm, no murmur.] Respiratory: Mild wheezing bilateral bases respirations are non-labored, breath sounds are equal.] Chest wall: [No tenderness, no deformity.] Gastrointestinal: [Soft, nontender, non distended, normal bowel sounds.] MSK: 5 out of 5 muscle strength x 4 extremities no calf pain or edema Lymphatics: [No lymphadenopathy.] Psychiatric: [Cooperative, appropriate mood & affect.] Neurological: [Alert and oriented to person, place, time, and situation, no focal neurological deficit observed.] Constitutional Vital Signs, click to edit/add: Last Vital Signs Temp 99.7 F 07/11/24 08:53 Pulse 89 07/11/24 08:53 Resp 24 H 07/11/24 08:53 BP 179/91 H 07/11/24 08:53 Pulse Ox 98 07/11/24 08:53 O2 Del Method Room Air 07/11/24 08:53 Course Vital Signs Vital signs: Vital Signs Temperature 99.7 F 07/11/24 08:53 Pulse Rate 89 07/11/24 08:53 Respiratory Rate 24 H 07/11/24 08:53 Blood Pressure 179/91 H 07/11/24 08:53 Pulse Oximetry 98 07/11/24 08:53 Oxygen Delivery Method Room Air 07/11/24 08:53 Temperature 99.7 F 07/11/24 08:53 Pulse Rate 89 07/11/24 08:53 Respiratory Rate 24 H 07/11/24 08:53 Blood Pressure 179/91 H 07/11/24 08:53 Pulse Oximetry 98 07/11/24 08:53 Oxygen Delivery Method Room Air 07/11/24 08:53 MDM - URI/Sore Throat MDM Narrative Medical decision making narrative: Patient's lab is positive for COVID. Patient's chest x-ray does not show any acute pneumonia. She does not have any acute hypoxia. No respiratory distress. Patient will be sent home, use Tylenol Motrin for any's fever. Return to ED if worsening symptoms or respiratory distress. Follow-up with family doctor. Continue to follow-up with ENT about her swollen cyst in her neck that is being monitored. Patient has an albuterol inhaler already. She was instructed to use it for wheezing and bronchospasm. Differential Diagnosis Differential diagnosis: Likely upper respiratory infection, sinusitis, viral infection, bronchitis and influenza Lab Data Attestation: I reviewed the patient's lab results. Labs: Lab Results 07/11/24 Range/Units 09:05 Influenza Type A Ag Negative Influenza Type B Ag Negative SARS-CoV-2 Ag (CV2AG) Positive A (NEGATIVE) Imaging Data Chest x-ray: Radiologist's impression: ITS Impressions Chest X-Ray 07/11/24 09:45 IMPRESSION: No acute radiographic abnormality Electronically authenticated by: VIOLETTE SWEET Date: 07/11/2024 10:22 Discharge Plan Discharge Chief Complaint: Upper Respiratory Infection Clinical Impression: COVID-19 Patient Disposition: Home, Self-Care Time of Disposition Decision: 10:30 Condition: Good Mode of Transportation: Private Vehicle Prescriptions / Home Meds: No Action levothyroxine 112 mcg capsule 112 mcg PO DAILY HCTZ 25 mg PO DAILY Rx Instructions: 25mg lisinopril 20 mg tablet 20 mg PO DAILY omeprazole 20 mg capsule,delayed release(DR/EC) 20 mg PO DAILY potassium chloride 10 mEq Tablet,Er Particles/Crystals 20 meq PO BID 7 Days Qty: 28 0RF albuterol sulfate 90 mcg/actuation HFA aerosol inhaler 1 inh inhalation Q4H PRN (Reason: Shortness Of Breath Or Wheezing) 30 Days Qty: 1 0RF Print Language: Bangladeshi Instructions: COVID-19 (Coronavirus Disease 2019) (ED) Referrals: Physician,Non-Staff, [Physician] - 1 week Discharge Date/Time: 07/11/24 10:54
== END 2024-07-11 10:54 | disposition home or self-care (01) ==
PROVIDERS: Emergency Provider Emergency Medicine; PCP Family Medicine
DX: U07.1 COVID-19 (principal); Z90.49 Acquired absence of other specified parts of digestive tract
CPT/HCPCS: 71045; 87804; 87811; 99285

== ENCOUNTER 2024-08-13 19:52 | Outpatient (OUT) | payer MEDICARE, SELFPAY ==
--- OUTSIDE RECORDS SUMMARY | 2024-08-13 19:56 | XMS_ITS | CCD ---
Author Organization [facility] Care Team Providers Care Traffic Recorder Name Role Phone SWAPNIL, DR CEDRICK Ramírez Admitting Unavailable FURLONG, DR [...] Care Unavailable Furlong DOCedrick Primary Care Provider [phone] Cedrick Myers MD Primary Care Provider [phone] CHRISTELLE WRIGHT Attending Unavailable DIOGOLONGCEDRICK Referring Unavailable [...] Morphine; Translations: [MORPHINE] Drug Allergy 6 [facility] (2 sources) Penicillins; Translations: [PENICILLINS] Drug allergy (disorder) 6 [facility] (11 sources) FLUoxetine; Translations: [FLUOXETINE] Drug Allergy 3 Abnormal Behavior, Dizziness [facility] (10 sources) Morphine Drug Allergy 3 Shortness Of Breath, Rash [facility] (2 sources) Penicillins Propensity to adverse reactions to drug 3 Rash [facility] (8 sources) Penicillins Drug Intolerance [address] [facility] Healthcare Medications Current Medications Medication Drug Class(es) Dates Sig (Normalized) Sig (Original) 8 hr acetaminophen 650 mg extended release oral tablet (11 sources) take 1 tablet by mouth every eight hours as needed acetaminophen (Tylenol 8 Hour) 650 MG ER tablet Take 650 mg by mouth every 8 (eight) hours if needed Active acetaminophen 325 mg / chlorpheniramine maleate 2 mg oral tablet (9 sources) Histamine-1 Receptor Antagonist Start: 05-24-2023 Chlorpheniramine-A cetaminophen 2-325 MG tablet Take by mouth 05/24/2023 Active acetaminophen 21.7 mg/ml / dextromethorphan hydrobromide 1 mg/ml / doxylamine succinate 0.417 mg/ml oral solution (3 sources) Uncompetitive L-regllj-N-asparta te Receptor Antagonist, Sigma-1 Agonist Start: 05-24-2023 End: 05-16-2024 VS-Yglssxeegx-Rqfh aminophen 15-6.25-325 MG/15ML liquid Take by mouth 05/24/2023 05/16/2024 Discontinued (Therapy completed) [id number] 200 actuat albuterol 0.09 mg/actuat metered dose inhaler (11 sources) beta2-Adrenergic Agonist take 2 puff(s) by [...] (Therapy completed) cholecalciferol 0.05 mg oral tablet (11 sources) Vitamin D Start: 01-09-2024 cholecalcifero l [...] hydrochloride 240 mg extended release oral tablet (11 sources) alpha-Adrenergic Agonist, Histamine-1 Receptor Antagonist take [...] propionate 0.05 mg/actuat metered dose nasal spray (5 sources) Corticosteroid Start: 06-12-2024 End: 06-12-2025 take 2 spray(s) nasal route once daily fluticasone (Flonase) 50 MCG/ACT nasal spray Indications: Chronic rhinitis Administer 2 sprays into each nostril Daily Shake gently. Before first use, prime pump. After use, clean tip and replace cap. 48 g 3 06/12/2024 06/12/2025 Active levothyroxine sodium 0.112 mg/ml oral solution (11 sources) l-Thyroxine take 112 ug by mouth in the morning levothyroxine (Tirosint-RENETTA) 112 MCG/ML solution Take 112 mcg by mouth in the morning. Active lisinopril 20 mg oral tablet (11 sources) Angiotensin Converting Enzyme Inhibitor take 1 tablet by mouth in the morning lisinopril 20 MG tablet Take 20 mg by mouth in the morning. Active metoprolol tartrate 25 mg oral tablet (11 sources) beta-Adrenergic Raffi Start: 01-09-2024 metoprolol tartrate [...] omeprazole 20 mg delayed release oral capsule (11 sources) Proton Pump Inhibitor take 1 capsule by mouth in the morning omeprazole (PriLOSEC) [address] capsule Take 20 mg by mouth in the morning. Active microencapsulated potassium chloride 10 meq extended release oral tablet (11 sources) Start: 12-27-19 potassium chloride CR (Klor-Con M10) 10 MEQ ER tablet TAKE 2 TABLETS BY MOUTH TWICE DAILY FOR 7 DAYS 12/27/2023 Active Problems Active Problems Problem Classification Problem Date Documented Date Episodic/Chronic Acquired foot deformities (20 sources) Bunion; Translations: [Bunion of right foot] Onset: 03-30-2024 03-30-2024 Episodic Anxiety disorders (9 sources) Anxiety; Translations: [Anxiety disorder, unspecified] Onset: 05-15-2024 05-15-2024 Chronic Asthma (9 sources) Asthma; Translations: [Unspecified asthma, uncomplicated] Onset: 05-15-2024 05-15-2024 Chronic Esophageal disorders (9 sources) Gastroesophageal reflux disease; Translations: [Gastro-esophageal reflux disease without esophagitis] Onset: 05-15-2024 05-15-2024 Chronic Essential hypertension (13 sources) Essential (primary) hypertension; Translations: [Hypertensive disorder] Onset: 12-29-2023 12-29-2023 Chronic Lymphadenitis (4 sources) Acute lymphadenitis; Translations: [Acute lymphadenitis, unspecified] 05-08-2024 Episodic Nutritional deficiencies (9 sources) Vitamin D deficiency; Translations: [Vitamin D deficiency, unspecified] Onset: 05-15-2024 05-15-2024 Chronic Osteoarthritis (17 sources) Osteoarthritis of joint right ankle; Translations: [...] Chronic Other nutritional; endocrine; and metabolic disorders (11 sources) Morbid obesity; Translations: [Morbid (severe) obesity due to excess calories] Onset: 12-29-2023 12-29-2023 Chronic Other skin disorders (1 source) Localized swelling, mass and lump, neck; Translations: [Localized swelling, mass and lump, neck] Onset: 05-08-2024 Episodic Other skin disorders (8 sources) Mass of neck; Translations: [Localized swelling, mass and lump, neck] 05-08-2024 Episodic Other upper respiratory disease (2 sources) Chronic rhinitis; Translations: [Chronic rhinitis] 06-12-2024 Chronic Other upper respiratory infections (2 sources) Acute upper respiratory infection, unspecified; Translations: [Acute sinusitis, unspecified] Onset: 09-04-2020 Episodic Residual codes; unclassified (4 sources) Obstructive sleep apnea syndrome; Translations: [Obstructive sleep apnea (adult) (pediatric)] 06-12-2024 Chronic Screening and history of mental health and substance abuse codes (1 source) Encounter for screening for depression; Translations: [Encounter for screening for depression] Onset: 03-30-2024 Episodic Thyroid disorders (12 sources) Hypothyroidism, unspecified; Translations: [Acquired hypothyroidism] Onset: 12-29-2023 12-29-2023 Chronic Unclassified (3 sources) CONTACT W/AND (SUSP) EXPOS COVID-19; Translations: [CONTACT W/AND (SUSP) EXPOS COVID-19] Onset: 08-12-2021 Unclassified (1 source) Swollen Glands Onset: 05-08-2024 Unclassified (1 source) Annual Exam Onset: 03-30-2024 Past or Other Problems Problem Classification Problem Date Documented Da te Episodic/Chronic Fluid and electrolyte disorders (17 sources) Hypo-osmolality and hyponatremia; Translations: [Hypokalemia] Onset: [...] schedule pt for CT neck w at [facility], week of 05/28/25, creatinine prior to test BASIC METABOLIC PANLon 12-28 Anion gap [Moles/Vol] 11 mmol/L Normal 5-15 [facility] Comment on above: Performed By: #### B MP #### [facility] ([id number]) [address], [address] [place] [address] Calcium [Mass/Vol] 9.4 mg/dL Normal 8.5-10.5 [facility] Comment on above: Performed By: #### B MP #### [facility] ([id number]) [address], [address] [place] [address] Chloride [Moles/Vol] 98 mmol/L Normal 98-109 [facility] Comment on above: Performed By: #### B MP #### [facility] ([id number]) [address], [address] [place] [address] CO2 [Moles/Vol] 26 mmol/L Normal 22-32 [facility] Comment on above: Performed By: #### B MP #### [facility] ([id number]) [address], [address] [place] [address] Creatinine [Mass/Vol] 0.67 mg/dL Normal 0.40-1.00 [facility] Comment on above: Result Comment: METH OD TRACEABLE TO IDMS STANDARD Performed By: #### B MP #### [facility] ([id number]) [address], [address] [place] [address] eGFR (CKD-EPI) NON-RACE DEPENDENT >90 Normal >59 [facility] Comment on above: Result Comment: Reported eGFR is based on the CKD-EPI 1 equation that does not use a race coefficient. Performed By: #### B MP #### [facility] ([id number]) [address], [address] [place] [address] Glucose [Mass/Vol] 128 mg/dL High 65-99 [facility] Comment on above: Performed By: #### B MP #### [facility] ([id number]) [address], [address] [place] [address] Potassium [Moles/Vol] 4.4 mmol/L Normal 3.5-5.0 [facility] Comment on above: Performed By: #### B MP #### [facility] ([id number]) [address], [address] [place] [address] Sodium [Moles/Vol] 135 mmol/L Normal 134-146 [facility] Comment on above: Performed By: #### B MP #### [facility] ([id number]) [address], [address] [place] [address] Urea nitrogen [Mass/Vol] 12 mg/dL Normal 5-27 [facility] Comment on above: Performed By: #### B MP #### [facility] ([id number]) [address], [address] [place] [address] Covid-19 PCR (CVDTB)on SARS-CoV-2 (COVID-19) RNA BETO+probe Ql (Unsp spec) Not detected Normal NOT DETECTED [facility] Comment on above: Result Comment: This test is not yet approved or cleared by the [place] FDA. When there are no FDA-approved or cleared tests available, and other criteria are met, FDA can make tests available under an emergency access mechanism called an Emergency Use Authorization (EUA). The EUA for this test is supported by the Video News Editor of Health and Human Service's (HHS's) declaration [...] SARS-CoV-2. Performed By: #### C VDTBH #### [facility] [address] [place] [address] Dr. Anh Wright Covid-19 PCR (CVDTB)on 08-02 EUA Statement SEE BELOW Normal [facility] Comment on above: Result Comment: This test is not yet approved or cleared by the [place] FDA. When there are no FDA-approved or cleared tests available, and other criteria are met, FDA can make tests available under an emergency access mechanism called an Emergency Use Authorization (EUA). The EUA for this test is supported by the [place] of Health and Human Service?s (HHS?s) declaration [...] SARS-CoV-2. Performed By: #### C VDTBH #### [facility] [address] [address] Dre Daley SARS-CoV-2 (COVID-19) RNA BETO+probe Ql (Unsp spec) Not detected Normal NOT DETECTED [facility] Comment on above: Result Comment: This test is not yet approved or cleared by the [place] FDA. When there are no FDA-approved or cleared tests available, and other criteria are met, FDA can make tests available under an emergency access mechanism called an Emergency Use Authorization (EUA). The EUA for this test is supported by the [place] of Health and Human Service's (HHS's) declaration [...] used). Performed By: #### C VDTBH #### [facility] [address] [address] Dre Daley Vital Signs Date Time Vital Sign Value Performing Clinician Facility 08-08-2024 09:46-0500 Body height 162.6 cm Christelle Wright MD Work Phone: [facility] 08-08-2024 09:46-0500 Body mass index (BMI) [Ratio] 41.2 kg/m2 Christelle Wright MD Work Phone: [facility] 08-08-2024 09:46-0500 Body weight 108.86 kg Christelle Wright MD Work Phone: [facility] 08-08-2024 09:46-0500 Diastolic blood pressure 85 mm[Hg] Christelle Wright MD Work Phone: [facility] 08-08-2024 09:46-0500 Heart rate 103 /min Christelle Wright MD Work Phone: [facility] 08-08-2024 09:46-0500 Systolic blood pressure 156 mm[Hg] Christelle Wright MD Work Phone: [facility] 06-12-2024 09:04-0500 Body height 162.6 cm Christelle Wright MD Work Phone: [facility] 06-12-2024 09:04-0500 Body mass index (BMI) [Ratio] 41.2 kg/m2 Christelle Wright MD Work Phone: [facility] 06-12-2024 09:04-0500 Body weight 108.86 kg Christelle Wright MD Work Phone: [facility] 06-12-2024 09:04-0500 Diastolic blood pressure 77 mm[Hg] Christelle Wright MD Work Phone: [facility] 06-12-2024 09:04-0500 Systolic blood pressure 141 mm[Hg] Christelle Wright MD Work Phone: [facility] 05-16-2024 09:49-0400 Body height 162.6 cm Christelle Wright MD Work Phone: [facility] 05-16-2024 09:49-0400 Body mass index (BMI) [Ratio] 41.2 kg/m2 Christelle Wright MD Work Phone: [facility] 05-16-2024 09:49-0400 Body weight 108.86 kg Christelle Wright MD Work Phone: [facility] 05-16-2024 09:49-0400 Diastolic blood pressure 90 mm[Hg] Christelle Wright MD Work Phone: [facility] 05-16-2024 09:49-0400 Systolic blood pressure 152 mm[Hg] Christelle Wright MD Work Phone: [facility] 05-08-2024 13:59-0400 Body height 162.6 cm CedrickFirst Coverage DO Work Phone: [facility] [employer] [facility] 05-08-2024 13:59-0400 Body mass index (BMI) [Ratio] 42.16 kg/m2 Cedrick LearnBIGlong DO Work Phone: [facility] 05-08-2024 13:59-0400 Body temperature 98.2 [degF] Cedrick LearnBIGlong DO Work Phone: [facility] [employer] [facility] 05-08-2024 13:59-0400 Body weight 111.4 kg Cedrick LearnBIGlong DO Work Phone: [facility] [employer] [facility] 05-08-2024 13:59-0400 Diastolic blood pressure 82 mm[Hg] Cedrick LearnBIGlong DO Work Phone: [facility] [employer] [facility] 05-08-2024 13:59-0400 Heart rate 92 /min Cedrick LearnBIGlong DO Work Phone: [facility] [employer] 05-08-2024 13:59-0400 SaO2% (BldA) [Mass fraction] 94 % Cedrick LearnBIGlong DO Work Phone: [facility] [employer] [facility] 05-08-2024 13:59-0400 Systolic blood pressure 164 mm[Hg] Cedrick Furlong DO Work Phone: [facility] Encounters Encounter Date Encounter Type Care Provider Facility Start: 08-08-2024 End: 08-08-2024 Bamboo moisés Wright MD Work Phone: [facility] Start: 08-08-2024 End: 08-08-2024 Angelao moisés Wright MD Work Phone: [facility] Start: 08-08-2024 End: 08-08-2024 Office outpatient visit 25 minutes Christelle Wright MD Work Phone: [facility] Comment on above: GUSTAVO (obstructive sle ep apnea) (Primary Dx); Mass of right side of neck Start: 06-12-2024 End: 06-12-2024 Bamboo moisés Wright MD Work Phone: [facility] Start: 06-12-2024 End: 06-12-2024 Bamboo moisés Wright MD Work Phone: [facility] Start: 06-12-2024 End: 06-12-2024 Office outpatient visit 25 minutes Christelle Wright MD Work Phone: [facility] Comment on above: Acute lymphadenitis (Primary Dx); Chronic rhinitis; GUSTAVO (obstructive sleep apnea) Start: 06-12-2024 End: 06-12-2024 ambulatory CHRISTELLE H TIMMIS Not Available Start: 05-30-2024 End: 05-30-2024 ambulatory CHRISTELLE H TIMMIS Not Available Start: 05-16-2024 End: 05-16-2024 Bamboo moisés Wright MD Work Phone: [facility] Start: 05-16-2024 End: 05-16-2024 Bamboo moisés Wright MD Work Phone: [facility] Start: 05-16-2024 End: 05-16-2024 Office outpatient new 45 minutes Christelle Wright MD Work Phone: [facility] Comment on above: Mass of right side o f neck (Primary Dx) Start: 05-16-2024 End: 05-16-2024 ambulatory CHRISTELLE WRIGHT Not Available Start: 05-11-2024 End: 05-11-2024 Orders Only Cedrick G Bristol DO Work Phone: [facility] Comment on above: Neck mass (Primary D x); Lymphadenitis, acute Start: 05-08-2024 End: 05-08-2024 Office outpatient visit 25 minutes Cedrick Myers DO Work Phone: [facility] Comment on above: Neck mass (Primary D x); Lymphadenitis, acute Start: 05-08-2024 End: 05-08-2024 ambulatory [facility] Start: 03-30-2024 End: 03-30-2024 ambulatory [facility] Start: 03-30-2024 Encounter for genera l adult medical examination without abnormal findings [facility] Start: 12-30-2023 End: 12-30-2023 ambulatory [facility] Start: 12-29-2023 End: 12-29-2023 ambulatory [facility] Start: 08-06-2021 End: 08-06-[address] CEDRICK MYERS Facility:[facility] Start: 08-28-2020 End: 08-28-[address] CEDRICK MYERS Facility:[facility] Procedures Date Procedure Procedure Detail Performing Clinician Start: 05-08-2024 [facility] Start: 12-29-2023 Follow-up visit Follow-up CEDRICK MYERS Plan of Treatment Date Care Activity Detail Author Start: 05-08-2025 Adult BMI Screening Adult BMI Screen ing [facility] Start: 05-08-2025 Depression Screening Depression Scre ening [facility] Start: 05-08-2025 Fall Risk Screening Fall Risk Screen ing [facility] Start: 05-08-2025 Tobacco Screening Tobacco Screening [facility] Start: 03-30-2025 Adult BMI Follow Up Plan Adult BMI Follow Up Plan [facility] Start: 03-30-2025 Medicare Annual Well ness Visit Medicare Annual Wellness Visit [facility] Start: 08-08-2024 End: 08-08-2024 Patient encounter procedure 08/08/2024 9:50 AM EST Office Visit [facility] [address] [place] [address] Christelle Wright MD [address] [place] [address] Arrived [facility] Comment on above: Arrived Start: 07-10-2024 End: 07-10-2024 Patient encounter procedure 07/10/2024 9:10 AM EST Office Visit [facility] [address] [place] [address] Christelle Wright MD [address] [place] [address] [facility] Start: 06-12-2024 End: 06-12-2025 US Head and neck soft tissue US head neck soft tissue Imaging Routine Acute lymphadenitis Expected: 06/12/2024 (Approximate), Expires: 06/12/2025 [facility] Work Phone: Comment on above: Expected: 06/12/2024 (Approximate), Expires: 06/12/2025 Start: 06-12-2024 End: 06-12-2024 Patient encounter procedure 06/12/2024 9:10 AM EST Office Visit [facility] [address] [place] [address] Christelle Wright MD [address] [place] [address] [facility] Start: 05-16-2024 End: 05-16-2025 [...] 05/16/2024 9:20 AM EDT Office Visit [facility] [address] [facility] [address] [place] [id number] Christelle Wright MD [address] [facility] [address] [place], [place] [id number] Arrived [facility] Comment on above: Arrived Start: 05-08-2024 End: 05-08-2025 US Head and neck soft tissue Ultrasound soft tissue head neck Imaging Routine Neck mass Expected: 05/08/2024, Expires: 05/08/2025 [facility] Work Phone: Comment on above: Expected: 05/08/2024 , Expires: 05/08/2025 Start: 04-01-2024 [facility]enza [facility] Start: 2008 Administration of varicella zoster vaccine Zoster (Shingles) Vaccine (1 of 2) [facility] Start: 2003 Screening for malign ant neoplasm of colon Colon Cancer Screening 3 Year Colog[employer] [employer] Start: 1998 Screening for malign ant neoplasm of breast Mammogram [employer] Start: 1977 DTaP,Tdap and Td Vaccines (1 - Tdap) DTaP,Tdap and Td Vaccines (1 - Tdap) [facility] Payers Date Payer Category Payer Medicare [facility] MED[facility] [employer]OTED [employer] MEDICARE ADVANTAGE [id number] 2023-Present [phone] [address] [place] [id number] 2023 Medicare (Managed Care) [id number] 2023 Medicare [id number] 2019 Unknown [id number] 1959 Self-pay [id number] 1958 Unknown [id number] 1958 Unknown [id number] 1958 Unknown [id number] 1958 Unknown [id number] 1958 Unknown [id number] 1958 Unknown [id number] 1958 Unknown [id number] 1958 Unknown [id number] 1958 Unknown [id number] Social History Date Type Detail Facility Start: 08-23-2022 End: 05-16-2024 Tobacco smoking status NHIS Never smoked tobacco [facility] Start: 08-23-2022 End: 05-16-2024 Tobacco use and exposure Smokeless tobacco non-user [facility] Start: 05-08-2024 Alcoholic beverage intake Ex-drinker (finding) [facility] Start: 03-30-2024 End: 06-12-2024 History of Social function [facility] Start: 03-30-2024 End: 06-12-2024 [facility] Utilities [facility] Has the [employer], [employer], oil, or water company threatened to shut off services in your home in past 12Mo No [facility] [employer] [facility] Are you now , , , , never or living with a partner? [facility] How often to you hav e a drink containing alcohol? Never [facility] How many standard drinks containing alcohol do you have on a typical day? Patient does not drink [facility] Do you feel stress - tense, restless, nervous, or anxious, or unable to sleep at night because your mind is troubled all the time - these days [OSQ] Only a little [facility] Start: 1960 Sex assigned at Not on file P [facility] Tobacco smoking stat [facility] Tobacco smoking consumption unknown [facility] Start: 05-16-2024 End: 08-08-2024 Alcoholic beverage intake Lifetime non-drinker (finding) [facility] Clinical Notes 05-08-2024 to 08-08-2024 Christelle Wright MD - 08/08/2024 9:50 AM Saritha Wright MD - 06/12/2024 9:10 AM ESTAddendum Note - Zenaida Giron RN - 06/12/2024 9:10 AM ESTAddendum Note - Zenaida Giron RN - 06/12/2024 9:10 AM EST Note Date & Type Note Facility 08-08-2024 History of Presen t illness Narrative Subjective Patient ID: Mari Quiroz is a 64 y.o. female who presents for Neck Mass (Follow up Rt parotid ultrasound [facility] 07/03/24)F/U US and sleep study. Sleep study showed an AHI of 125 and a min O2 sat of 69%. Titration sleep study scheduled for 08/13. US showed near-resolution of her neck No family history on file. Active Ambulatory Problems Diagnosis Date Noted Acquired hypothyroidism (CMS/HCC) 12/29/2023 Flat foot (pes planus) (acquired), left foot 05/15/2024 Acquired pes planus of right foot 05/15/2024 Anxiety 05/15/2024 Asthma [place] 05/15/2024 Gastroesophageal reflux disease 05/15/2024 Hypertension ([facility] 05/15/2024 Hyponatremia 12/29/2023 Obesity, morbid ([facility] 12/29/2023 Osteoarthritis of right ankle 03/30/2024 Vitamin D deficiency 05/15/2024 Resolved Ambulatory Problems Diagnosis Date Noted No Resolved Ambulatory Problems Past Medical History: Diagnosis Date High blood pressure ([facility]) Neck mass Past Surgical History: [...] by mouth cholecalciferol (Vitamin D-3) 50 MCG (2000 UT) tablet Take 50 mcg by mouth fexofenadine-pseudoephedrine ER (Umu-D 24) 180-240 MG 24 hr tablet Take 1 tablet by mouth in the morning. fluticasone (Flonase) 50 MCG/ACT nasal spray Administer 2 sprays into each nostril Daily Shake gently. Before first use, prime pump. After use, clean tip and replace cap. 48 g 3 levothyroxine (Tirosint-RENETTA) 112 MCG/ML solution Take 112 [...] to visit. Objective Last Recorded Vitals Vitals: 08/08/24 0946 BP: 156/85 Pulse: 103 ENT Physical Exam Constitutional Appearance: patient appears well-developed, well-nourished and well-groomed, Communication/Voice: communication appropriate for developmental age; vocal quality normal; Assessment/Plan Diagnoses and all orders for this visit: GUSTAVO (obstructive sleep apnea) Mass of right side of neck Pt has very severe GUSTAVO and definitely needs CPAP as well as aggressive wt loss. Repeat US one more time in 6 mo. documented in this encounter [facility] 06-12-2024 History of Presen t illness Narrative [...] foot 05/15/2024 Anxiety 05/15/2024 Asthma ([facility]/HCC) 05/15/2024 Gastroesophageal reflux disease 05/15/2024 Hypertension ([facility]/HCC) 05/15/2024 Hyponatremia 12/29/2023 Obesity, morbid ([facility]) 12/29/2023 Osteoarthritis of right ankle 03/30/2024 Vitamin D deficiency 05/15/2024 Resolved Ambulatory Problems Diagnosis Date Noted No Resolved Ambulatory Problems Past Medical History: Diagnosis Date High blood pressure ([facility]/HCC) Neck mass Past Surgical History: Procedure Laterality [...] study and F/U documented in this encounter [facility] 06-12-2024 Miscellaneous Notes Addended by: ZENAIDA GIRON on: 06/12/2024 10:00 AM Modules accepted: Orders documented in this encounter [facility] 06-12-2024 Note Addended by: ZENAIDA GIRON on: 06/12/2024 10:00 AM Modules accepted: Orders [facility] Healthcare Work Phone: 06-12-2024 Note Addended by: ZENAIDA GIRON on: 06/12/2024 10:00 AM Modules accepted: Orders [facility] Healthcare Work Phone: 05-16-2024 History of Presen t [...] Diagnosis Date Noted Acquired hypothyroidism ([facility]/HCC) 12/29/2023 Flat foot (pes planus) (acquired), left foot 05/15/2024 Acquired pes planus of right foot 05/15/2024 Anxiety 05/15/2024 Asthma (CMS/HCC) 05/15/2024 Gastroesophageal reflux disease 05/15/2024 Hypertension (CMS/HCC) 05/15/2024 Hyponatremia 12/29/2023 Obesity, morbid (CMS/HCC) 12/29/2023 Osteoarthritis of right ankle 03/30/2024 Vitamin D deficiency 05/15/2024 Resolved Ambulatory Problems Diagnosis Date Noted No Resolved Ambulatory Problems Past Medical History: Diagnosis Date High blood pressure (CMS/[facility]) Neck mass Past Surgical History: [...] by mouth cholecalciferol (Vitamin D-3) 50 MCG (2000 UT) tablet Take 50 mcg by mouth [...] [DISCONTINUED] clindamycin (Cleocin) 300 MG capsule [DISCONTINUED] ST-Qqarmpewld-Fkxtgpclseqsp 15-6.25-325 MG/15ML liquid Take by mouth [DISCONTINUED] [...] a CT neck. documented in this encounter [facility] 05-08-2024 History of Presen t illness Narrative [...] ear normal. Nose: Nose normal. Mouth/Throat: Lips: [place]. Mouth: Mucous membranes are moist. Dentition: Normal [...] for 5 days. documented in this encounter [facility] Evaluation note Diagnosis Neck mass- Primary Swelling, mass, or lump in head and neck Lymphadenitis, acute Acute lymphadenitis documented in this encounter [facility] Diagnosis Neck mass- Primary Swelling, mass, or lump in head and neck Lymphadenitis, acute Acute lymphadenitis documented in this encounter [facility]* Diagnosis Mass of right side of neck- Primary documented in this encounter [facility] HealthcareEvaluation note* Diagnosis Acute lymphadenitis- Primary Chronic rhinitis GUSTAVO (obstructive sleep apnea) Obstructive sleep apnea (adult) (pediatric) documented in this encounter [facility] HealthcareEvaluation note* Diagnosis GUSTAVO (obstructive sleep apnea)- Primary Obstructive sleep apnea (adult) (pediatric) Mass of right side of neck documented in this encounter [facility] HealthcareInstructionsNot on filedocumented in this encounterProM[facility] SystemInstructionsNot on filedocumented in this encounterProMorrow County Hospital SystemReason for referral (narrative)* Consultation (Routine) - Pending Review Specialty Diagnoses / Procedures Referred By Lisa nunez Referred To Contact Otolaryngology Diagnoses Neck mass Lymphadenitis, acute Cedrick Myers DO [address] [place] [address] Christelle Wright MD [address] [address] Referral ID Status Reason Start Date Expiration Date Visits Requested Visits Authorized [id number] Pending Review Specialty Services Required 05/11/2025 1 1 [facility] Summary Purpose Family History No Family History Records FoundNo Family History Records FoundNo Family History Records FoundNo Family History Records Found Advance Directives No Advanced Directives Records FoundNo Advanced Directives Records FoundNo Advanced Directives Records FoundNo Advanced Directives Records Found Additional Source Comments INFORMATION SOURCE (unrecogn ized section and content) DATE CREATED AUTHOR 08/13/2021 [facility] DATE CREATED AUTHOR AUTHOR'S ORGANIZ ATION 12/30/2023 [facility] DATE CREATED AUTHOR AUTHOR'S ORGANIZ ATION 05/10/2024 [facility] DATE CREATED AUTHOR AUTHOR'S ORGANIZ ATION 06/13/2024 [facility] dical Specialists EPIC Reason for Visit (unrecogniz ed section and content) Reason Comments Swollen Glands Right side of neck p ain at a 2-3. Sensitive to touch. X 1 week Reason Comments Neck Mass Specialty Diagnoses / Procedures Referred By Lisa nunez Referred To Contact Otolaryngology Diagnoses Neck mass Lymphadenitis, acute Procedures AMB REFERRAL TO ENT Cedrick Myers MD [address] [place] [address] Phone: tel: fax: Christelle Wright MD [address] [place] [address] [place] [address] Phone: tel: fax: Referral ID Status Reason Start Date Expiration Date V isits Requested Visits Authorized [id number] Pending Review 05/11/2024 05/11/2025 1 1 Reason Comments Neck Mass Follow up [facility] Reason Comments Neck Mass Follow up Rt parotid ultrasound TB 07/03/24 Care Teams (unrecognized sec tion and content) Traffic Recorder Relationship Specialty Start Date End Date Cedrick Myers DO [address] [place] [address] PCP - General Family Medicine 12/27/23 Traffic Recorder Relationship Specialty Start Date End Date Cedrick Myers DO [address], [place] [address] PCP - General Family Medicine 12/27/23 Traffic Recorder Relationship Specialty Start Date End Date Cedrick Myers MD [address], [place] [address] PCP - General Family Medicine 05/14/24 Traffic Recorder Relationship Specialty Start Date End Date Cedrick Myers MD [address], [place] [address] PCP - General Family Medicine 05/14/24 Traffic Recorder Relationship Specialty Start Date End Date Cedrick Myers MD [address], [place] [address] PCP - General Family Medicine 05/14/24 Traffic Recorder Relationship Specialty Start Date End Date Cedrick Myers MD [address], [place] [address] PCP - [facility] 05/14/24 Traffic Recorder Relationship Specialty Start Date End Date Cedrick Myers MD [address], [place] [address] PCP - [facility] Medicine 05/14/24 Traffic Recorder Relationship Specialty Start Date End Date Cedrick Myers MD [address], [place] [address] PCP - [facility] Family Medicine 05/14/24 FOR RECORDS PERTAINING TO PATIENTS WHO [...] BE BASED ON THE PRIMARY CLINICAL RECORDS. [facility] [employer] [facility]. provides no warranty or guarantee of the accuracy or completeness of information in this document.
== END 2024-08-13 19:53 | disposition home or self-care (01) ==
LOC: SLEEP 19:53
PROVIDERS: PCP Otolaryngology; Visit Provider Otolaryngology
DX: G47.33 Obstructive sleep apnea (adult) (pediatric) (principal)
CPT/HCPCS: 95811

== ENCOUNTER 2025-02-06 08:56 | Outpatient (OUT) | payer MEDICARE, SELFPAY ==
--- OUTSIDE RECORDS SUMMARY | 2025-02-06 09:00 | XMS_ITS | Clinical Summary ---
Author Organization [facility] Address [address] [place] [address] Care Team Providers Care Gas Analyst Name Role Phone Cedrick Myers MD Primary Care Provider [phone] Allergies Active Allergy Reactions Criticality Noted Date Comments Fluoxetine Dizziness 08/23/2022 Other Reaction(s): Abnormal Behavior Morphine Rash,Shortness of breath High 08/23/2022 Penicillins Rash Low 08/23/2022 Medications acetaminophen (Tylenol 8 Hour) 650 MG ER tablet Take 650 mg by mouth every 8 (eight) hours if needed Active albuterol HFA 90 mcg/act inhaler Inhale 2 puffs every 6 (six) hours if needed Active Chlorpheniramin e-Acetaminophen 2-325 MG tablet Take by mouth 3 Active cholecalciferol (Vitamin D-3) 50 MCG (1999) tablet Take 50 mcg by mouth 4 Active fexofenadine-ps eudoephedrine ER (Muu-D 24) 180-240 MG 24 hr tablet Take 1 tablet by mouth in the morning. Active levothyroxine (Tirosint-RENETTA) 112 MCG/ML solution Take 112 mcg by mouth in the morning. Active lisinopril 20 MG tablet Take 20 mg by mouth in the morning. Active metoprolol tartrate (Lopressor) 25 MG tablet Take 12.5 mg by mouth 4 Active omeprazole (PriLOSEC) [address] capsule Take 20 mg by mouth in the morning. Active potassium chloride CR (Klor-Con M10) 10 MEQ ER tablet TAKE 2 TABLETS BY MOUTH TWICE DAILY FOR 7 DAYS 4 Active fluticasone (Flonase) 50 MCG/ACT nasal sprayIndication s:Chronic rhinitis Administer 2 sprays into each nostril Daily Shake gently. Before first use, prime pump. After use, clean tip and replace cap. 48 g 3 4 06/12/20 Active Active Problems Problem Noted Date Diagnosed Date Obstructive sleep apnea syndrome in adult 2024 Flat foot (pes planus) (acquired), left foot Acquired pes planus of right foot 05/15/2024 Anxiety 05/15/2024 Asthma 05/15/2024 Gastroesophageal reflux disease 05/15/2024 Hypertension 05/15/2024 Vitamin D deficiency 05/15/2024 Osteoarthritis of right ankle 03/30/2024 Acquired hypothyroidism 12/29/2023 Hyponatremia 12/29/2023 Obesity, morbid 12/29/2023 Encounters Date Type Department Care Team Description 11/07/2024 9:40 AM EDT Office Visit [facility] [address] [facility] [address] [place] [address] Christelle Wright MD GUSTAVO (obstructive sleep apnea) (Primary Dx) 11/07/2024 Bamboo flowsheet [facility] [address] [facility] [address] [place] [address] Christelle Wright MD 11/07/2024 Travel from Last 3 Months Social History Tobacco Use Types Packs/Day Years Used Date Smoking Tobacco: Never Smokeless Tobacco: Never Tobacco Cessation:Counseling Given: Not Answered Alcohol Use Standard Drinks/Week Comments Never 0 (1 standard drink = 0.6 oz pur e alcohol) Comments Unknown Sex and Gender Information Value Date Recorded Sex Assigned at Not on file Legal Sex Female 6:46 PM EDT Gender Identity Not on file Sexual Orientation Not on file Last Filed Vital Signs Vital Sign Reading Time Taken Comments Blood Pressure 160/81 11/07/2024 9:35 AM EDT Pulse 76 11/07/2024 9:35 AM EDT Temperature - - Respiratory Rate - - Oxygen Saturation - - Inhaled Oxygen Concentration - - Weight 108 kg (238 lb) 11/07/2024 9:35 AM EDT Height 162.6 cm (5' 4 ) 11/07/2024 9:35 AM EDT Body Mass Index 40.85 11/07/2024 9:35 AM EDT Plan of Treatment Upcoming Encounters Date Type Department Care Team (Late st Contact Info) Description 02/13/2025 9:40 AM EDT Office Visit [facility] [address] [facility] [address] [place] [address] Christelle Wright MD 112 [facility] [address] [place] [address] Insurance [employer] MEDICARE ADVANTAGE Care Teams Gas Analyst Relationship Specialty Start Date End Date Cedrick Myers MD [address] [facility] [place] [address] PCP - General Family Medicine 10/31/24
--- OUTSIDE RECORDS SUMMARY | 2025-02-06 09:00 | XMS_ITS | Clinical Summary ---
Author Organization [employer] [facility] [employer] Address [id number] [address] [place] [address] Care Team Providers Care Medical Clerical Assistant Name Role Phone AlCedrick fink Primary Care Provider Allergies Active Allergy Reactions Criticality Noted Date Comments Morphine Shortness Of Breath High 08/23/2022 Penicillins Rash Low 08/23/2022 Fluoxetine Abnormal Behavior 08/23/2022 Medications levothyroxine 112 mcg/mL solution Take 112 mcg by mouth in the morning. Active fexofenadine-ps eudoephedrine (WESTLEY-D 24) 180-240 mg per 24 hr tablet Take 1 tablet by mouth in the morning. Active omeprazole (PriLOSEC) 20 mg capsule Take 1 capsule (20 mg total) by mouth in the morning. Active cholecalciferol , vitamin D3, (VITAMIN D3) 5,000 units capsule TAKE 1 CAPSULE BY MOUTH EVERY DAY 100 capsule 03/16/2023 Active potassium chloride (KLOR-CON M 10) 10 MEQ CR tablet TAKE 2 TABLETS BY MOUTH TWICE DAILY FOR 7 DAYS 12/27/2023 Active albuterol (PROVENTIL HFA;VENTOLIN HFA) 90 mcg/actuation inhaler Inhale 2 puffs every 6 (six) hours as needed for wheezing. Active lisinopriL (PRINIVIL,ZESTR IL) 20 mg tablet Take 1 tablet (20 mg total) by mouth in the morning. Active metoprolol tartrate (LOPRESSOR) 25 mg tablet Take 0.5 tablets (12.5 mg total) by mouth in the morning and 0.5 tablets (12.5 mg total) before bedtime. Active acetaminophen (TYLENOL ARTHRITIS) 650 mg 8 hr tablet Take 1 tablet (650 mg total) by mouth every 8 (eight) hours as needed for pain. Active Active Problems Problem Noted Date Diagnosed Date Bilateral bunions 03/30/2024 Bilateral calcaneal spurs 03/30/2024 Osteoarthritis of right ankle 03/30/2024 Primary osteoarthritis of left ankle 03/30/2024 Primary osteoarthritis of left knee 03/30/2024 Primary osteoarthritis 03/30/2024 Hyponatremia 12/29/2023 Hypokalemia 12/29/2023 Obesity, morbid 12/29/2023 Acquired hypothyroidism 12/29/2023 Hypertension Immunizations No known immunizations Family History Medical History Relation Name Comments Heart attack Brother Asthma Daughter Breast cancer Daughter Heart attack Father Transient ischemic attack Mother Relation Name Status Comments Brother Alive Daughter Alive Father Mother Social History Tobacco Use Types Packs/Day Years Used Date Smoking Tobacco: Never Smokeless Tobacco: Never Tobacco Cessation:Counseling Given: Not Answered Alcohol Use Standard Drinks/Week Comments Not Currently 0 (1 standard drink = 0.6 oz pur e alcohol) [employer] Answer Date Recorded In the past 12 months has jobandtalent, gas, oil, or water [employer] threatened to shut off services in your home? No 03/30/2024 Social Connection and Isolat ion Panel [NHANES] Answer Date Recorded In a typical week, how many times do you talk on the phone with family, friends, or neighbors? More than three times a week 03/30/2024 How often do you get togethe r with friends or relatives? Once a week 03/30/2024 How often do you attend [facility] or roman catholic services? Never 03/30/2024 Do you belong to any clubs o r organizations such as yazdanism groups, unions, fraternal or athletic groups, or school groups? No 03/30/2024 How often do you attend meet ings of the clubs or organizations you belong to? Never 03/30/2024 Are you , , di vorced, , never , or living with a partner? 03/30/2024 AUDIT-C Answer Date Recorded Q1: How often do you have a drink containing alcohol? Never 03/30/2024 Q2: How many drinks containi ng alcohol do you have on a typical day when you are drinking? Patient does not drink Q3: How often do you have si x or more drinks on one occasion? Never 03/30/2024 Overall Financial Resource Strain (CARDIA) Answe r Date Recorded How hard is it for you to pa y for the very basics like food, housing, medical care, and heating? Not hard at all 03/30/2024 PHQ-2 Answer Date Recorded Total Score 0 05/08/2024 [facility] of Occupat ional Health - Occupational Stress Questionnaire Answer Date Recorded Do you feel stress - tense, restless, nervous, or anxious, or unable to sleep at night because your mind is troubled all the time - these days? Only a little 03/30/2024 Exercise Vital Sign Answer Date Recorde d On average, how many days pe r week do you engage in moderate to strenuous exercise (like a brisk walk)? 0 days 03/30/2024 On average, how many minutes do you engage in exercise at this level? 0 min 03/30/2024 PRAPARE - Transportation Answer Date Re corded In the past 12 months, has l ack of transportation kept you from medical appointments or from getting medications? No 03/03 In the past 12 months, has l ack of transportation kept you from meetings, work, or from getting things needed for daily living? No 03/30/2024 Housing Instability Answer Date Recorde d Are you worried or concerned that in the next two months you may not have stable housing that you own, rent or stay in as a part of a household? No 03/30/2024 Childcare Answer Date Recorded Do problems getting child ca re make it difficult for you to work or study? No 03/30/2024 Employment Answer Date Recorded Do you need help finding a [facility] and/or a training program? No 03/30/2024 Hunger Screening Answer Date Recorded Within the past 12 months we worried whether our food would run out before we got money to buy more. Never True 05/08/2024 Within the past 12 months th e food we bought just didn't last and we didn't have money to get more. Never True 05/08/2024 Purpose - Life Answer Date Recorded I have a purpose and direction in my life. Agree 03/30/2024 Comments Unknown Sex and Gender Information Value Date Recorded Sex Assigned at Not on file Legal Sex Female 11:57 AM EDT Gender Identity Not on file Sexual Orientation Not on file Last Filed Vital Signs Vital Sign Reading Time Taken Comments Blood Pressure 164/82 05/08/2024 1:59 PM EDT Pulse 92 05/08/2024 1:59 PM EDT Temperature 36.8 C (98.2 F) 05/08/2024 1:59 PM EDT Respiratory Rate 20 03/30/2024 10:3 0 AM EDT Oxygen Saturation 94% 05/08/2024 1:59 PM EDT Inhaled Oxygen Concentration - - Weight 111.4 kg (245 lb 9.6 oz) 05/08/2024 1:59 PM EDT Height 162.6 cm (5' 4 ) 05/08/2024 1:59 PM EDT Body Mass Index 42.16 05/08/2024 1:59 PM EDT Plan of Treatment Upcoming Encounters Date Type Department Care Team (Late st Contact Info) Description 04/02/2025 1:30 PM EDT Office Visit [facility] - Family Medicine [address] [place] [address] Cedrick Myers DO [address] [facility] [place] [address] Health Maintenance Due Date Last Done Comments DTaP,Tdap and Td Vaccines (1 - Tdap) 1977 Mammogram 1998 Colon Cancer Screening 3 Year Cologuard 2003 Zoster (Shingles) Vaccine (1 of 2) 2008 Adult BMI Follow Up Plan 03/30/2025 03/30/2024 Medicare Annual Wellness Visit 03/30/2025 03/30/2024 Influenza Vaccine 04/01/2025 Adult BMI Screening 05/08/2025 05/08/2024 Depression Screening 05/08/2025 05/08/2024 Fall Risk Screening 05/08/2025 05/08/2024 Tobacco Screening 05/08/2025 05/08/2024 Medical Devices Not on file Insurance [employer]AGE Care Teams Medical Clerical Assistant Relationship Specialty Start Date End Date Cedrick Myers DO [address], [place] [address] PCP - General Family Medicine 12/27/23
--- OUTSIDE RECORDS SUMMARY | 2025-02-06 09:00 | XMS_ITS | Encounter Summary ---
Author Organization [facility] Address [id number] [address] [place] [address] Care Team Providers Care Welding Production Supervisor Name Role Phone Cedrick Myers DO Primary Care Provider [phone]- [phone] Encounter Details Date Type Department Care Team (Late st Contact Info) Description 07/11/2024 Orders Only [facility] - Family Medicine [address] [place] [address] Cedrick Myers DO [address], [facility] [place] [address] Social History Tobacco Use Types Packs/Day Years Used Date Smoking Tobacco: Never Smokeless Tobacco: Never Alcohol Use Standard Drinks/Week Comments Not Currently 0 (1 standard drink = 0.6 oz pur e alcohol) [facility] Utilities Answer Date Recorded In the past 12 months has [employer], gas, oil, or water company threatened to shut [...] week 03/30/2024 How often do you attend chur ch or orthodox services? Never 03/30/2024 Do you belong to any clubs o r organizations such as restorationism groups, unions, fraternal or athletic groups, or [...] Answer Date Recorded Total Score 0 05/08/2024 [facility] of Occupat ional Health - Occupational Stress [...] Recorded Do you need help finding a [facility] career center and/or a training program? No [...] on file Sexual Orientation Not on file documented as of this encounter Plan of Treatment Upcoming Encounters Date Type Department Care Team (Late st Contact Info) Description 04/02/2025 1:30 PM EDT Office Visit [facility] - Family Medicine [address] [place] [address] Cedrick Myers DO [address] [facility] [place] [address] documented as of this encounter Visit Diagnoses Not on filedocumented in this encounter Additional Health Concerns Assessment Noted Time PHQ-9 Depression Total Score: 0 05/08/20 1:57 PM EDT A Body Mass Index follow-up plan has been documented for the patient 03/30/2024 1:22 PM EDT documented as of this encounter Care Teams Welding Production Supervisor Relationship Specialty Start Date End Date Cedrick Myers DO [address] [facility] [place] [address] PCP - General Family Medicine 12/27/23 documented as of this encounter
--- OUTSIDE RECORDS SUMMARY | 2025-02-06 09:00 | XMS_ITS | Encounter Summary ---
Author Organization [employer] Address [id number] [address] [place] [address] Care Team Providers Care [employer] Dental Lab Technician Name Role Phone Cedrick Myers DO Primary Care Provider [phone]- [phone] Reason for Visit * Reason Comments Med Refill Encounter Details Date Type Department Care Team (Late st Contact Info) Description 07/22/2022 Refill [facility] - Family Medicine [address] [place] [id number] Vanesa Álvarez, TRINIDAD-BAR EXAMINER [address] [place] [address] Social History Tobacco Use Types Packs/Day Years Used Date Smoking Tobacco: Never Assessed Childcare Answer Date Recorded Childcare Unknown 01/10/2019 Employment Answer Date Recorded Employment Unknown 01/10/2019 Comments Unknown Sex and Gender Information Value [...] Medicine - Family Medicine [address] [place] [id number] Cedrick Myers DO [address] [place] [address] documented as of this encounter Visit Diagnoses Not on filedocumented in this encounter Care Teams [employer] [facility] Lab Technician Relationship Specialty Start Date End Date Cedrick Myers DO [address] [place] [address] PCP - General Family Medicine 12/27/23 documented as of this encounter
--- OUTSIDE RECORDS SUMMARY | 2025-02-06 09:00 | XMS_ITS | Encounter Summary ---
Author Organization [facility] Address [address] [facility] [place] [address] Care Team Providers Care Grief Counsellor Name Role Phone Cedrick Myers MD Primary Care Provider [phone] Encounter Details Date Type Department Care Team ([facility] Contact Info) Description 07/03/2024 Clinisync Result Encounter [facility] External Department Unsolicited Madhu Wright MD [address] [id number] Social History Tobacco Use Types Packs/Day Years Used Date Smoking Tobacco: Never Smokeless Tobacco: Never Alcohol Use Standard Drinks/Week Comments Never 0 (1 standard drink = 0.6 oz pur e alcohol) Comments Unknown Sex and Gender Information Value Date Recorded Sex Assigned at Not on file Legal Sex Female 6:46 PM EDT Gender Identity Not on file Sexual Orientation Not on file documented as of this encounter Plan of Treatment Upcoming Encounters Date Type Department Care Team ([facility] Contact Info) Description 02/13/2025 9:40 AM EDT Office Visit [facility] [address] [facility] [address] [place] [address] Mdahu Wright MD [address] [address] documented as of this encounter Procedures Procedure Name Priority Date/Time Associated Diagnosis Comments US SOFT TISSUE HEAD AND NECK 07/03/2024 5:57 AM EST documented in this encounter Results * US SOFT TISSUE HEAD AND NECK (07/03/2024 5:57 AM EST) Anatomical Region Laterality Modality Other 07/03/2024 5:57 AM EST Narrative 07/03/2024 6:01 [place] [address] Ultrasound Report Signed Patient: MARI TIRADO MR#: [id number] : 1960 Acct:[id number] Age/Sex: 63 / F ADM Date: 07/02/24 Loc: US Attending Dr: Madhu Wright M.D. Ordering Physician: Madhu Wright M.D. Date of Service: 07/02/24 Procedure(s): US soft tissue head and neck Accession Number(s): [id number] cc: CEDRICK MYERS ; Madhu Wright M.D. [place] [id number] Patient Name: MARI TIRADO MRN: [id number] date: 1960 Sex: F Assigned Patient Location: Current Patient Location: Accession/Order Number: [id number] Exam Date: 07/02/2024 11:10 Report Date: 07/03/2024 05:57 At the request of: MADHU WRIGHT Procedure: US soft tissue head and neck EXAMINATION: US soft tissue head and neck HISTORY: ACUTE LYMPHADENITIS, LYMPHADENOPATHY COMPARISON: No relevant comparison available. FINDINGS: Rounded hypoechoic 0.8 x 0.6 x 0.7 cm area within versus adjacent the right submandibular gland (previously 1.9 x 1.8 x 1.5 cm). Adjacent to the submandibular glands is a slightly prominent, but otherwise benign-appearing 1.4 x 1.1 x 0.7 cm lymph node. Benign-appearing 1.2 cm lymph node within right parotid gland. US/US soft tissue head and neck IMPRESSION: 1. Interval decrease in size of the previously seen complex cyst versus abscess versus hypoechoic mass within versus adjacent the right submandibular gland. 2. Benign-appearing lymph node adjacent the right submandibular gland. 3. Benign-appearing lymph node within the right parotid gland. Electronically authenticated by: HARESH ERNANDEZ Date: 07/03/2024 05:57 Dictated By: Haresh Ernandez M.D. Signed By: 07/03/24 0601 DD/ 0557 TD/TT: Manager Testing: Procedure Note Radiology, Radiologist, - 07/03/2024 [place] [address] Ultrasound Report Signed Patient: MARI TIRADO AMR#: [id number] : 1960cct:[id number] Age/Sex: 63 / FADM Date: 07/02/24 Loc: US Attending Dr: Madhu Wright M.D. Ordering Physician: Madhu Wright M.D. Date of Service: 07/02/24 Procedure(s): US soft tissue head and neck Accession Number(s): [id number] cc: CEDRICK MYERS ; Madhu Wright M.D. [place] [id number] Patient Name: MARI TIRADO MRN: [facility]:[id number] date: 1960 Sex: F Assigned Patient Location: US Current Patient Location: Accession/Order Number: [id number] Exam Date: 07/02/2024 11:10 Report Date: 07/03/2024 05:57 At the request of: MADHU WRIGHT Procedure: US soft tissue head and neck EXAMINATION: US soft tissue head and neck HISTORY: ACUTE LYMPHADENITIS, LYMPHADENOPATHY COMPARISON: No relevant comparison available. FINDINGS: Rounded hypoechoic 0.8 x 0.6 x 0.7 cm area within versus adjacent theright submandibular gland (previously 1.9 x 1.8 x 1.5 cm). Adjacent to the submandibular glands is a slightly prominent, but otherwisebenign-appearing 1.4 x 1.1 x 0.7 cm lymph node. Benign-appearing 1.2 cm lymph node withinright parotid gland. US/US soft tissue head and neck IMPRESSION: 1. Interval decrease in size of the previously seen complex cyst versus abscess versus hypoechoic mass within versus adjacent the right submandibulargland. 2. Benign-appearing lymph node adjacent the right submandibular gland. 3. Benign-appearing lymph node within the right parotid gland. Electronically authenticated by: HARESH ERNANDEZ Date: 07/03/2024 05:57 Dictated By: Haresh Ernandez M.D. Signed By:07/03/2401 DD/ TD/TT: Manager Testing: us Madhu Wright MD [facility] Final Resul t documented in this encounter Visit Diagnoses Not on filedocumented in this encounter Care Teams Grief Counsellor Relationship Specialty Start Date End Date Cedrick Myers MD [address] [facility], [place] [address] PCP - General Family Medicine 10/31/24 documented as of this encounter
--- OUTSIDE RECORDS SUMMARY | 2025-02-06 09:00 | XMS_ITS | Encounter Summary ---
Author Organization [facility] tem Address [id number] [address] [place] [address] Care Team Providers Care Distribution Specialist Name Role Phone AlCedrick fink Primary Care Provider [phone]- [phone] Encounter Details Date Type Department Care Team (Late st Contact Info) Description 10/26/2024 Orders Only [facility] Internal Medicine - Family Medicine [address] [place] [address] Ref Prov, [place] [address] Social History Tobacco Use Types Packs/Day Years Used Date Smoking Tobacco: Never Smokeless Tobacco: Never Alcohol Use Standard Drinks/Week Comments Not Currently 0 (1 standard drink = 0.6 oz pur e alcohol) [facility] Utilities Answer Date Recorded In the past 12 months has e electric, gas, oil, or water company threatened to [...] often do you attend chur ch or presybeterian services? Never 03/30/2024 Do you belong to any clubs o r organizations such as pentecostalism groups, unions, fraternal or athletic groups, or [...] Answer Date Recorded Total Score 0 05/08/2024 [facility] [place] of Occupat ional Health - Occupational Stress [...] Recorded Do you need help finding a l ocal career center and/or a training program? No [...] Medicine - Family Medicine [address] [place] [address] Cedrick Myers DO [address], [facility] [place] [address] documented as of this encounter Procedures Procedure Name Priority Date/Time Associated Diagnosis Comments MULTIPLE LABS Routine 10/15/2024 12:40 PM EDT MULTIPLE LABS Routine 10/15/2024 12:39 PM EDT documented in this encounter Results * Multiple labs (10/15/2024 12:40 PM EDT) us Not In System Ref Prov [facility] Final Res ult MANUALLY TRANSCRIBED RESULTS * Multiple labs (10/15/2024 12:39 PM EDT) us Not In System Ref Prov [facility] Final Res ult documented in this encounter Visit Diagnoses Not on filedocumented in this encounter Additional Health Concerns Assessment Noted Time PHQ-9 Depression Total Score: 0 05/08/20 24 1:57 PM EDT A Body Mass Index follow-up plan has been documented for the patient 03/30/2024 1:22 PM EDT documented as of this encounter Care Teams Distribution Specialist Relationship Specialty Start Date End Date Cedrick Myers DO [address] [facility], [place] [address] PCP - General Family Medicine 12/27/23 documented as of this encounter
--- OUTSIDE RECORDS SUMMARY | 2025-02-06 09:00 | XMS_ITS | Encounter Summary ---
Author [facility] Address [id number] [address] [place] [address] Care Team Providers Care Cheesemaker Name Role Phone AlCedrick fink Primary Care Provider [phone]- [phone] Encounter Details Date Type Department Care Team (Late st Contact Info) Description 05/11/2024 Orders Only [facility] Internal Medicine - Family Medicine [address] [place] [address] Fe Martinez CMA Neck mass Social History Tobacco Use Types Packs/Day Years Used Date Smoking Tobacco: Never Smokeless Tobacco: Never Alcohol Use Standard Drinks/Week Comments Not Currently 0 (1 standard drink = 0.6 oz pur e alcohol) [facility] Utilities Answer Date Recorded In [...] often do you attend chur ch or rastafari services? Never 03/30/2024 Do you belong to any clubs o r organizations such as sikhism groups, unions, fraternal or athletic groups, or [...] Answer Date Recorded Total Score 0 05/08/2024 [facility] [place] of Occupat ional Health - Occupational Stress [...] Do you need help finding a l al career center and/or a training program? No [...] Medicine - Family Medicine [address] [place] [address] Cedrick Myers DO [address] [facility], [facility] [place] [address] documented as of this encounter Procedures Procedure Name Priority Date/Time Associated Diagnosis Comments US SOFT TISS HEAD NECK Routine 05/09/2024 Neck mass documented in this encounter Results * Ultrasound soft tissue head neck (05/09/2024) Anatomical Region Laterality Modality Neuro, Neck Ultrasound 05/09/2024 us Cedrick Myers DO IMG US ORDERABLES Final Resu lt documented in this encounter Visit Diagnoses Diagnosis Neck mass Swelling, mass, or lump in head and neck documented in this encounter Additional Health Concerns Assessment Noted Time PHQ-9 Depression Total Score: 0 05/08/20 1:57 PM EDT A Body Mass Index follow-up plan has been documented for the patient 03/30/2024 1:22 PM EDT documented as of this encounter Care Teams Cheesemaker Relationship Specialty Start Date End Date Cedrick Myers DO [address] [facility], [facility] [place] [address] PCP - General Family Medicine 12/27/23 documented as of this encounter
--- OUTSIDE RECORDS SUMMARY | 2025-02-06 09:00 | XMS_ITS | Encounter Summary ---
Author Organization [facility] Address [id number] [address] [place] [address] Care Team Providers Care Safety Person Name Role Phone Cedrick Myers DO Primary Care Provider [phone]- [phone] Encounter Details Date Type Department Care Team (Late st Contact Info) Description 05/18/2024 Orders Only [facility] Internal Medicine - Family Medicine [address] [place] [address] Cedrick Myers DO [address] [place] [address] Neck mass; Lymphadenitis, acute Social History Tobacco Use Types Packs/Day Years Used Date Smoking Tobacco: Never Smokeless Tobacco: Never Alcohol Use Standard Drinks/Week Comments Not Currently 0 (1 standard drink = 0.6 oz pur e alcohol) [facility] Utilities Answer Date Recorded In the past 12 months has aScentias, gas, oil, or water [employer] threatened to shut off services in your [...] 03/30/2024 How often do you attend chur or moravian services? Never 03/30/2024 Do you belong to any clubs o r organizations such as jainism groups, unions, fraternal or athletic groups, or [...] Answer Date Recorded Total Score 0 05/08/2024 [facility] of Occupat ional Health - Occupational Stress [...] Recorded Do you need help finding a [facility] career center and/or a training program? No [...] Medicine - Family Medicine [address] [place] [address] Cedrick Myers DO [address] [facility] [place] [address] documented as of this encounter Procedures Procedure Name Priority Date/Time Associated Diagnosis Comments AMB REFERRAL TO ENT Routine 05/16/2024 11:42 AM E DT Neck mass Lymphadenitis, acute documented in this encounter Results * Ambulatory referral to ENT ([facility]) (05/16/2024 11:42 AM EDT) us Cedrick Myers DO OUTPATIENT REFERRAL ORDERABL ES Final Result MANUALLY TRANSCRIBED RESULTS documented in this encounter Visit Diagnoses Diagnosis Neck mass Swelling, mass, or lump in head and neck Lymphadenitis, acute Acute lymphadenitis documented in this encounter Additional Health Concerns Assessment Noted Time PHQ-9 Depression Total Score: 0 05/08/20 24 1:57 PM EDT A Body Mass Index follow-up plan has been documented for the patient 03/30/2024 1:22 PM EDT documented as of this encounter Care Teams Safety Person Relationship Specialty Start Date End Date Cedrick Myers DO [address] [place] [address] PCP - General Family Medicine 12/27/23 documented as of this encounter
--- OUTSIDE RECORDS SUMMARY | 2025-02-06 09:00 | XMS_ITS | Encounter Summary ---
Author Organization [facility] Address [id number] [address] [place] [address] Care Team Providers Care Geophysical Drafter Name Role Phone AlCedrick fink Primary Care Provider +1- [phone] Encounter Details Date Type Department Care Team (Late st Contact Info) Description 07/10/2024 Orders Only [facility] Internal Medicine - Family Medicine [address] [place] [address] Ref Prov, [place] [address] Social History Tobacco Use Types Packs/Day Years Used Date Smoking Tobacco: Never Smokeless Tobacco: Never Alcohol Use Standard Drinks/Week Comments Not Currently 0 (1 standard drink = 0.6 oz pur e alcohol) [facility] Utilities Answer Date Recorded In [...] often do you attend chur ch or mu-ism services? Never 03/30/2024 Do you belong to any clubs o r organizations such as presybeterian groups, unions, fraternal or athletic groups, or [...] Answer Date Recorded Total Score 0 05/08/2024 [facility] [place] of Occupat ional Health - Occupational Stress [...] - Family Medicine [address] [place] [address] Cedrick Myers DO [address] [facility] [place] [address] documented as of this encounter Procedures Procedure Name Priority Date/Time Associated Diagnosis Comments US SOFT TISSUE HEAD & NECK REAL TIME IMGE DOCM Routine 07/02/2024 2:33 PM EST documented in this encounter Results * US SOFT TISSUE HEAD & NECK REAL TIME IMGE DOCM (07/02/2024 2:33 PM EST) us Not In System Ref Prov [facility] Final Result MANUALLY TRANSCRIBED RESULTS documented in this encounter Visit Diagnoses Not on filedocumented in this encounter Additional Health Concerns Assessment Noted Time PHQ-9 Depression Total Score: 0 05/08/20 1:57 PM EDT A Body Mass Index follow-up plan has been documented for the patient 03/30/2024 1:22 PM EDT documented as of this encounter Care Teams Geophysical Drafter Relationship Specialty Start Date End Date Cedrick Myers DO [address] [facility] [place] [address] PCP - General Family Medicine 12/27/23 documented as of this encounter
--- NOTE | 2025-02-06 09:13 | US_ITS ---
The [address] [address] Patient Name: ACACIA TIRADO MRN: [facility]:[id number] date: 1960 Sex: F Assigned Patient Location: US Current Patient Location: US Accession/Order Number: [id number] Exam Date: 02/06/2025 09:56 Report Date: 02/06/2025 10:04 At the request of: MADHU ZEPEDA MD Procedure: US soft tissue head and neck LIMITED ULTRASOUND - right neck COMPARISON: 07/02/2024 and 05/10/2024 CLINICAL DATA: Follow-up fullness of the right neck and cervical lymph nodes. Real-time ultrasound evaluation of the area patient's lumps was performed. Near the submandibular gland, there is still a rounded hypoechoic nodule measuring 4 x 3 x 4 mm which continues to decrease in size. In close proximity, there is a reniform nodule with echogenic hilus and slightly thickened cortex measuring 8 x 4 x 7 mm. Appearance is compatible with a lymph node. It shows no significant interval change. Cursory evaluation of the right parotid gland shows no abnormality. US/US soft tissue head and neck IMPRESSION: CONTINUED DECREASE IN SIZE OF HYPOECHOIC NODULE NEAR THE RIGHT SUBMANDIBULAR GLAND. STABLE ADJACENT LYMPH NODE. NO NEW ABNORMALITIES. Impression dictated by: Thuy Werner M.D. 02/06/2025 10:04 AM Dictation Location: [place] [address] Electronically authenticated by: [id number] Y Date: 02/06/2025 10:04
== END 2025-02-06 08:57 | disposition home or self-care (01) ==
LOC: US 08:58
PROVIDERS: PCP Otolaryngology; Visit Provider Otolaryngology
DX: R22.1 Localized swelling, mass and lump, neck (principal)
CPT/HCPCS: 76536